=== PATIENT | female | born 1945 | race Caucasian/White ===

== ENCOUNTER 2019-06-11 09:05 | Outpatient (CLI) | payer MEDICARE, SELFPAY ==
--- NOTE | 2019-06-11 09:00 | CT_ITS ---
WS: [id number] CT CHEST HIGH-RESOLUTION TECHNIQUE: Noncontrast CT of the chest with coronal and sagittal reformatted images. High-resolution reformatted images with inspiration and expiration. Prone images. CLINICAL INFORMATION: shortness of breath COMPARISON: 7 20,011 DLP: 263.[address] scans at [facility] use at least one of these dose optimization techniques: automat ed exposure control; mA and/or kV adjustment per patient size (includes targeted exams where dose is matched to clinical indication); or iterative reconstruction. FINDINGS: Advanced chronic centrilobular and paraseptal emphysematous changes worse in the lung apices. Pleural base slightly spiculated nodule in the right upper lobe laterally measuring 9.8 mm. This can be furt her with PET/CT. This is not amenable to CT-guided biopsy. Additional plaque-like pleural nodules in the inferior right upper lobe along the fissure measuring 9 mm. Additional similar-appearing plaque-l pancho noncalcified pleural nodule right lower lobe measuring 12 mm. Pleural-based nodules are new since 2010. No other evidence of interstitial lung disease. No acute pulmonary infiltrates.Mild air-trapping in t he right middle lobe on the expiratory images. Vascular calcification including coronary. No mediastinal or hilar lymphadenopathy. Coronary calcific ation. No axillary lymphadenopathy. A few tiny low-attenuation nodules in the thyroid. Adrenal glands are normal. Partially visualized right renal cyst measuring 4.[address]/CT chest wo con [id number] IMPRESSION: 1. Moderate centrilobular and paraseptal emphysema. 2. Several noncalcified pleural-based nodules the most suspicious in the right upper lobe laterally measuring 10 mm with slight spiculation. Findings are mason picious for neoplasm and recommend further evaluation PET/CT. This is not amen able to CT-guided biopsy. 3. Additional en plaque subpleural noncalcified nodules in the inferior right upper lobe and right lower lobe measuring 9 to 12 mm. 4. No acute pulmonary infiltrates. 5. No mediastinal or hilar lymphadenopathy. 6. Mild air trapping in the right middle lobe.
--- NOTE | 2019-06-11 10:15 | USCV_ITS ---
Anneliese Garcia Age: 73 Gender: F : 1945 Exam Date: 06/11/2019 10:17 Ordering Phys: Brayan Basilio MD Technologist: Pari Linn Exam Location: [facility] – [place] Indication: PULMONARY HTN BP: 132 / 53 HR: 52 Rhythm: Sinus Technical Quality: Adequate MEASUREMENTS (Male / Female) Normal Values 2D ECHO LV Diastolic Diameter PLAX 4.2 cm 4.2 - 5.9 / 3.9 - 5.3 cm LV Systolic Diameter PLAX 3.3 cm LV Chamber Size 3.0 cm IVS Diastolic Thickness 1.1 cm 0.6 - 1.0 / 0.6 - 0.9 cm IVS Systolic Thickness 1.3 cm LVPW Diastolic Thickness 1.8 cm 0.6 - 1.0 / 0.6 - 0.9 cm LVPW Systolic Thickness 1.9 cm RV Chamber Size 2.1 cm LVOT Diameter 2.1 cm LV Ejection Fraction 2D Teich 43.9 % LV Ejection Fraction MOD 2C 76.1 % LV Ejection Fraction 2C AL 75.7 % LA Diameter 4.2 cm LA Width 2.9 cm LA Height 3.5 cm RA Width 2.2 cm RA Height 4.1 cm Aorta at Sinotubular Diameter 2.4 cm M-MODE LV Diastolic Diameter MM 4.0 cm 4.2 - 5.9 / 3.9 - 5.3 cm LV Systolic Diameter MM 2.0 cm LV Ejection Fraction MM Teich 80.8 % IVS Diastolic Thickness MM 0.9 cm 0.6 - 1.0 / 0.6 - 0.9 cm IVS Systolic Thickness MM 1.3 cm LVPW Diastolic Thickness MM 1.1 cm 0.6 - 1.0 / 0.6 - 0.9 cm LVPW Systolic Thickness MM 1.6 cm Aortic Annulus Diameter 3.0 cm LA Ao Ratio MM 1.4 MV E Point Septal Separation 0.3 cm DOPPLER AV Peak Velocity 146.0 cm/s LVOT Peak Velocity 125.0 cm/s AV Area Cont Eq vti 2.9 cm squared AV Area Cont Eq pk 2.9 cm squared MV Area PHT 2.8 cm squared Mitral E to A Ratio 0.8 MV E' Velocity 13.0 cm/s Mitral E to MV E' Ratio 8.4 Mitral E to LV E' Lateral Ratio 7.1 Mitral E to LV E' Septal Ratio 10.3 TR Peak Velocity 292.0 cm/s TR Peak Gradient 34.1 mmHg TR Mean Velocity 199.4 cm/s TR Mean Gradient 17.7 mmHg TR Velocity Time Integral 96.4 cm TV Peak E Velocity 64.0 cm/s Right Atrial Pressure 3.0 mmHg Pulmonary Artery Systolic Pressu 37.1 mmHg PV Peak Velocity 69.0 cm/s RV Acceleration Time 0.2 s RV Ejection Time 0.4 s RV AcT/ET 0.4 FINDINGS Left Ventricle Normal left ventricular size, systolic function and wall thickness, with no regional wall motion abnormalities. Grade I/IV diastolic dysfunction (abnormal relaxation filling pattern), normal to mildly elevated filling pressures. Left ventricular ejection fraction is estimated at 65%. Right Ventricle Normal right ventricular size and systolic function. Mild pulmonary hypertension, RVSP 37.1 mmHg. Right Atrium The right atrium is normal in size. Left Atrium Mildly increased left atrial size. Mitral Valve Structurally normal mitral valve. Mild-moderate mitral valve regurgitation. Aortic Valve Structurally normal aortic valve without significant sclerosis or stenosis. There is no aortic regurgitation. Tricuspid Valve Structurally normal tricuspid valve. Mild tricuspid valve regurgitation. Pulmonic Valve Pulmonic valve not well visualized. Trace pulmonary valve regurgitation. Pericardium Normal pericardium without effusion. Aorta Normal ascending aorta dimension. CONCLUSIONS Normal left ventricular size, systolic function and wall thickness, with no regional wall motion abnormalities. Grade I/IV diastolic dysfunction (abnormal relaxation filling pattern), normal to mildly elevated filling pressures. Left ventricular ejection fraction is estimated at 65%. Normal right ventricular size and systolic function. Mild pulmonary hypertension, RVSP 37.1 mmHg. Mildly increased left atrial size. Structurally normal mitral valve. Mild-moderate mitral valve regurgitation. There are no prior echocardiogram studies to compare. Dr. Khanh Lebron MD (Electronically Signed) Final Date: 11 June 2019 17:10 S
== END 2019-06-11 09:06 | disposition home or self-care (01) ==
LOC: RAD 09:08
PROVIDERS: Family Provider Family Medicine; PCP Family Medicine; Visit Provider Internal Medicine Critical Care Medicine
DX: I27.20 Pulmonary hypertension, unspecified (principal); I34.0 Nonrheumatic mitral (valve) insufficiency
CPT/HCPCS: 71250; 93306

== ENCOUNTER 2019-07-11 06:01 | Day surgery (SDC) | payer MEDICARE, SELFPAY ==
[2019-07-10 10:42] VITALS: BMI 23.6
[2019-07-11] VITALS (9 sets, daily range): BP systolic 99–149; BP diastolic 42–84; PULSE 56–85; RESP 14–20; TEMP 36.1–36.7; O2SAT 93–100
[2019-07-11] MEDS: sodium chloride 0.9% 1,000 ML 30 ML IV (06:45)
--- NOTE | 2019-07-11 06:50 | ANES.PREANE2 ---
Pre-Anesthetic Assessment Pre-Anesthetic Assessment: Height/Weight: Height 1.65 m Weight 64.41 kg Temp Pulse Resp BP Pulse Ox 97.1 F L 56 L 18 126/70 97 07/11/19 06:21 07/11/19 06:21 07/11/19 06:21 07/11/19 06:21 07/11/19 06:21 Preop Diagnosis: Lung cancer Proposed Procedure: Operation Date: 07/11/19 07:00 Proposed Procedures p Ebus(Not Applicable) - Brayan Basilio MD Familial anesthetic complications: None Was Beta Giana taken within 24 hours: Yes Last intake: Intake Last Liquid Date 07/11/19 Last Liquid Time 23:00 Last Solid Date 07/11/19 Last Solid Time 19:00 Social: Social History: Tobacco and No alcohol Packs per day: 0.5 - 1 pdd Exam: Additional Exam Findings (including area of procedure): diminshed lung soounds Airway: Cervical ROM: WNL MP: 1 Dentition: Chipped Additional comments: missing Pulmonary: Pulmonary: Cough and SOB Comments: lung mass R CV/HEM: CV/HEM: HTN and PVD Comments: PAD : : None reported Hepatic: Hepatic: None reported GI: GI: None reported Metabolic: Metabolic: None reported Musc/skel: Musc/skel: None reported Neuropsych: Neuropsych: None reported Anesthetic Plan: ASA status: 3 Anesthesia: General Risk of > 500 ml blood loss (7ml/kg in children): No PFSH Anesthesia PFSH: Social History Smoking and tobacco status: current every day smoker cigarettes Years cigarettes smoked: 45 Alcohol intake: current Alcohol intake frequency: holidays/special occasions only Current occupational status: retired History of recent travel: No Current gender identity: Female Data Anesthesia Cardiac Studies: No Data to Display
--- NOTE | 2019-07-11 06:58 | W.PM.OPSUD ---
Surgery/Procedure H&P Update DATE OF PROCEDURE: July 11, 2019 DATE H&P PERFORMED: 07/01/19 H&P UPDATE INFORMATION: I have reviewed H&P completed within last 30 days PREOP DIAGNOSIS: Lung cancer PLANNED PROCEDURE: Bronchoscopy inspection of the airway, possible endobronchial biopsies, endobronchial ultrasound-guided transbronchial needle aspiration of lymph nodes Operation Date: 07/11/19 07:00 Proposed Procedures p Ebus(Not Applicable) - Brayan Basilio MD Related Problem List Diagnoses (1) Lung cancer: The patient has right upper lobe pulmonary nodule with right mediastinal lymphadenopathy and hypermetabolic activity on PET scan. This is most likely consistent with primary lung malignancy. The plan is for to undergo the bronchoscopic evaluation and endobronchial ultrasound-guided transbronchial needle aspiration of hilar lymph nodes.
[2019-07-11] MEDS: lidocaine 1% INJ 20 mL XX (07:19)
--- NOTE | 2019-07-11 08:13 | SUR.OPER ---
balloon removed intact.
--- NOTE | 2019-07-11 08:16 | PM.OP ---
Operative Report Date of procedure: July 11, 2019 Pre-op Diagnosis: Lung cancer Post-op diagnosis: same Brief History: 3-year-old lady coming in for bronchoscopy. She recently had a PET scan done which was positive for right upper lobe pulmonary nodule and right hilar hypermetabolic lymph node. Procedure: Name of the procedure: Bronchoscopy with inspection of the airway, endobronchial ultrasound-guided transbronchial needle aspiration of lymph nodes and control of bleeding. Indication: Right upper lobe pulmonary nodule with right hilar lymphadenopathy and PET reactivity Anesthesia: General anesthesia. Local anesthesia: The carlene in the right and left mainstem bronchi were anesthetized with 1% lidocaine, 3 mL. Description of the procedure: The procedure was explained to the patient and the consent was obtained. The patient was brought to the OR. The patient underwent endotracheal intubation for general anesthesia. Following induction of general anesthesia, the bronchoscope was advanced through the ET tube. The lower trachea appeared to be normal, no endotracheal lesion was seen. The carlene was sharp. The carlene, the right and left mainstem bronchi are anesthetized with 1% lidocaine. In a systematic manner bilateral bronchial tree was then examined. The bronchoscope was advanced into the left mainstem bronchus. There was mild amount of mucus. The left upper lobe, lingula and left lower lobe bronchi were examined up to at least the third subsegmental level and no abnormalities were identified. There is no endobronchial lesion, active bleeding or mucous plug. The bronchoscope was then introduced into the right mainstem bronchus. The right upper lobe, right middle lobe and right lower lobe bronchi were examined up to at least the third subsegmental level and no abnormalities were identified. There was mild mucus. The endobronchial ultrasound was introduced through the ET tube. Right hilar lymphadenopathy with a right hilar mass was identified. Transbronchial needle aspiration was performed from 4R, 7, 10 R lymph node stations and right hilar mass. Samples: 1. The transbronchial needle aspiration of the aforementioned lymph node groups and right hilar mass were sent for cytology. Complications: There was no immediate complications. No significant bleeding postprocedure. Duration: 50 minutes.
--- NOTE | 2019-07-11 08:29 | SUR.PHASEI ---
7333 PATIENT TO PACU AT THIS TIME RR EVEN AND UNLABORED. PT NOTED TO BE RESTING WITH EYES CLOSED, NO DISTRESS.
--- NOTE | 2019-07-11 08:56 | SUR.PHASEI ---
0821 PATIENT TO PACU AT THIS TIME. NO DISTRESS. RR EVEN AND UNLABORED. DENIES PAIN. SLIGHT COUGH NOTED, INTERMITENTLY.
== END 2019-07-11 09:26 | disposition home or self-care (01) ==
PROVIDERS: Family Provider Family Medicine; PCP Family Medicine; Visit Provider Internal Medicine Critical Care Medicine
PROC: BB4BZZZ Ultrasonography of Pleura (ICD-10-PCS; CPT 31653; principal; 2019-07-11 07:00)
DX: C34.90 Malignant neoplasm of unspecified part of unspecified bronchus or lung (principal); I10 Essential (primary) hypertension; F17.210 Nicotine dependence, cigarettes, uncomplicated; Z79.82 Long term (current) use of aspirin; E78.5 Hyperlipidemia, unspecified; M81.0 Age-related osteoporosis without current pathological fracture; J43.9 Emphysema, unspecified
CPT/HCPCS: 31653; 12345; 88112; 88305; J1100; J2001; J2405; J2704; J3010; J3490; J7030

== ENCOUNTER 2019-07-29 12:56 | Outpatient (CLI) | payer MEDICARE, SELFPAY ==
--- NOTE | 2019-07-30 08:35 | ONC CON_ITS ---
Dr. Arango New Patient Note Patient: Anneliese Garcia Unit #: [id number]: 1945 Dicatated By: Cedric Arango M.D.Date of Visit: Jul 29, 2019 Onc MED New Patient/Consult Referring Physician: Dr. JJ BASILIO M.D. Chief Complaint: Lung cancer. History of Present Illness: This is a 73 year-old woman with small cell lung cancer, TNM stage IIIA (T4, N1, M0) by clinical evaluation. 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 She completed radiation in January 2003. She had only brief adjuvant hormonal therapy, stopped at 6 months due to side effects. She has had no evidence of recurrence. She had presented to Dr. Brown with shortness of breath. Her pulmonary function studies in March 2019 showed normal spirometry with severely reduced diffusion capacity. She was referred to Dr. Basilio. Chest CT on on 06/11/2019 showed moderate centrilobular and paraseptal emphysema. There were several noncalcified pleural-based nodules, the most significant in the right upper lobe measuring 10 mm. The findings were suspicious for neoplasm. There was no mediastinal or hilar adenopathy noted. Further evaluation with PET/CT on 06/28/2019 showed a 1.2 cm subpleural nodule in the right upper lobe with SUV 9.8, consistent with a primary lung carcinoma. A 2 cm right upper lobe hilar node had SUV 10.9, consistent with local metastatic disease. An FDG positive pleural-based plaque in the lateral right middle lobe had SUV 8.2, consistent with metastatic disease. On 07/11/2019 she underwent bronchoscopy with EBUS and FNA biopsy of the right hilar lymph node. There was no endobronchial lesion identified and the bronchial washings were nondiagnostic. The FNA biopsy showed numerous cohesive groups of malignant cells with high N/C ratios and neuroendocrine type chromatin, ultimately confirmed to be consistent with small cell carcinoma. She is seen now for further management of the lung cancer. She says she generally feels pretty good, though she is tired sometimes. Her ECOG score is 1. Her appetite has been fine. Her weight is stable. She has no fever. She occasionally has periods of feeling hot and sweaty. She still complains of having shortness of breath with activity. She has cough productive of thick, yellow mucus. She sometimes has choking. She was having some pleurisy-like pain in the lower anterior right chest wall, but that has resolved. Lately she has been having more indigestion. She has no other GI complaints. She has some urgency with urination. She has some generalized aching, most significantly in the knees. Lately she has had a lot of headaches. She tends to get lightheaded when she stands up from a bent-over position. She has no focal neurologic symptoms. Past Medical History: She has a history of ER/CA positivie invasive ductal carcinoma of the left breast treated with lumpectomy/radiation in 2002. Her other medical history includes degenerative disease of the spine with chronic back pain, hyperlipidemia, hypertension, osteoporosis, and peripheral artery disease. She has a history of hepatitis. Past Surgical History: She underwent bronchoscopy with EBUS and FNA biopsy of right hilar lymph node on 07/11/2019. Her other surgical/procedural history includes arthroscopic right knee surgery, cholecystectomy, closed reduction and pinning of left distal radius fracture, hysterectomy/bilateral salpingectomy-oophorectomy, iliiac artery stent placement, and left breast lumpectomy/axillary node sampling in 2002. Medications: amLODIPine Besylate 1 Tablet (of 10 mg) Oral daily, Aspirin 1 Tablet (of 325 mg) Oral daily, Chantix 1 Tablet (of 1 mg) Oral b.i.d., Sertraline HCl 1 Tablet (of 100 mg) Oral daily, Simvastatin 1 Tablet (of 10 mg) Oral daily, Stiolto Respimat Aerosol, solution Inhalation, Toprol XL 2 Tablet (of 50 mg) Tablet SR 24 HR Oral daily, traMADol HCl 2 Tablet (of 50 mg) Oral daily Allergies: DULoxetine HCl and FLUoxetine HCl. Social History: Ms. Garcia is and she is an unknown. She is a daily smoker who has smoked 0.5 packs/day for 45 years. She drinks occasionally. She has a history of smoking 1/2 pack of cigarettes daily for50 years. She has cut down to 1 or 2 cigarettes per day. Family History: Ms. Garcia's mother at age 78: alzheimers, and sepsis; Alzheimer's. Ms. Garcia's father at age 80: nonhodgkins lymphoma; Non- Hodgkins lymphoma. Ms. Garcia has 1 brother who is : lung infection. She has 1 sister who is : alzheimers, and lung disease, and diabetes. Father of lymphoma at age 80. Mother at age 78 with sepsis complicating Alzheimer's dementia. A brother at age 76 with aspiration pneumonia. A sister at age 82 with dementia, diabetes, and lung disease. Review Of Symptoms: Constitutional - She feels good overall, more fatigued lately. She is able to do normal house and outside work. Appetite is good and weight is stable. No fever or chills. She has occasional hot flashes and night sweats. ECOG score is 1, ENMT - She has some sinus drainage with occasional congestion. No mouth sores. No sore throat. difficulty swallowing, Hematologic/Lymphatic - She bruises easily, Respiratory - She has some shortness of breath with exertion. She has a slight productive cough that produces yellow sputum. She has had some right sided pleuritic pain or hemoptysis, Cardiovascular - No angina pain. No palpitations, Gastrointestinal - No nausea or vomiting. She has some heartburn. No diarrhea or constipation. No blood in the stool or black stools, Genitourinary (F) - No dysuria or hematuria. She has urinary frequency and urgency or incontinence, Musculoskeletal - She has bilateral knee pain, which is chronic,, Integumentary - No skin complications, Neurologic - No headache. She reports dizziness and feels like she is going to pass out at times. No numbness/paresthesias or other focal neurologic symptoms, Psychiatric - She has some anxiety and depression which is well controlled with sertaline. No insomnia. Vital Signs: Performed on Jul 29, 2019 13:53: 0, 24.23, 1.73 sq.m, 65.00 in, 96 %, 56 /min (LOW), 18 /min, 144/78 mm(hg) (HIGH), 97.4 F (LOW), and 145.6 lbs (HIGH). Physical Examination: Constitutional - She appears to be in good general health, Eyes - Sclerae nonicteric. Conjunctivae clear, ENMT - No lesions noted in the oral cavity, Neck - No mass or thyromegaly, Hematologic/Lymphatic - No cervical, clavicular, or axillary adenopathy, Respiratory - Lungs are clear with some decrease in air movement bilaterally, Cardiovascular - Heart rhythm is regular. There is no murmur, gallop, or rub noted, Abdomen - Soft and non-tender. Liver and spleen are not enlarged. There is no abdominal mass or ascites noted and there is no inguinal adenopathy, Back/Spine - No spine or CVA tenderness noted, Extremities - No edema. Pedal pulses are palpable bilaterally, Integumentary - No rashes. No suspicious skin lesions noted, Neurologic - No focal neurologic deficits noted. Impression: 1. Patient with small cell lung cancer of the right lung, TNM stage IIIA (T4, N1, M0) by clinical evaluation. 2. She underwent bronchoscopy with EBUS and biopsy of right hilar lymph node on 07/11/2019. 3. 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 There has been no evidence of recurrence. Her other medical illnesses include: 4. COPD. 5. Hypertension. 6. Hyperlipidemia. 7. Peripheral arterial disease. 8. Degenerative arthritis/degenerative disease of the spine. 9. Osteoporosis. 10. History of hepatitis. Plan: The findings on the imaging studies and the pathology results were reviewed with the patient and her . We discussed the fact that her disease is inoperable, based not only on the fact that is small cell carcinoma but also the fact that there is multifocal involvement in the lung and hilar node involvement. The disease, though, is potentially sensitive both chemotherapy and radiation. The recommended treatment will be concurrent radiation and chemotherapy, assuming her disease can be encompassed and safely treated within one radiation field. Her previous radiation for breast cancer and her underlying COPD may be complicating factors, and I will have to review this with the radiation oncologist. In the meantime, she will need to undergo placement of Port-A-Cath venous access device for the chemotherapy, and I will arrange that with Dr. France. Signed By: Cedric Arango M.D. <<Signature on File>>
== END 2019-07-29 12:57 | disposition home or self-care (01) ==
LOC: ONCMED 12:58
PROVIDERS: Family Provider Family Medicine; PCP Family Medicine; Referring Provider Internal Medicine Critical Care Medicine; Visit Provider Internal Medicine Medical Oncology
DX: C34.11 Malignant neoplasm of upper lobe, right bronchus or lung (principal); C77.1 Secondary and unspecified malignant neoplasm of intrathoracic lymph nodes; Z85.3 Personal history of malignant neoplasm of breast; G89.29 Other chronic pain; M19.90 Unspecified osteoarthritis, unspecified site; E78.5 Hyperlipidemia, unspecified; I10 Essential (primary) hypertension; M81.0 Age-related osteoporosis without current pathological fracture; I73.9 Peripheral vascular disease, unspecified; F17.210 Nicotine dependence, cigarettes, uncomplicated; J44.9 Chronic obstructive pulmonary disease, unspecified; Z79.899 Other long term (current) drug therapy; Z92.23 Personal history of estrogen therapy; Z92.3 Personal history of irradiation
CPT/HCPCS: 99205

== ENCOUNTER 2019-07-31 09:20 | Day surgery (SDC) | payer MEDICARE, SELFPAY ==
[2019-07-30 14:28] VITALS: BMI 24.1
--- NOTE | 2019-07-31 | SCC_ITS ---
Procedure Done: Port-A-Cath placement into the left subclavian vein with intraoperative fluoroscopy interpretation. 3.4 seconds of fluoroscopic guidance, for a cumulative dose of 0.30 mGy, was provided to Dr. France by the radiology department. C-arm images of the chest were saved for the patient's permanent record. MARISA
--- NOTE | 2019-07-31 | SC_ITS ---
WS: [id number] C-arm fluoroscopy view of the left chest for Port-A-Cath placement, 07/31/2019 Clinical Data: PORTACATH Comparison: None. Findings: The left Port-A-Cath has been inserted. The distal tip ends in the superior vena cava. No pneumothora x is seen. SC/C-arm FL for CVA [id number] Impression: Satisfactory insertion of left Port-A-Cath.
[2019-07-31 09:42] VITALS: BP 123/63; PULSE 62; RESP 18; TEMP 36.3; O2SAT 94
[2019-07-31] MEDS: sodium chloride 0.9% 1,000 ML 30 ML IV (09:46)
--- NOTE | 2019-07-31 10:29 | PM.OP ---
Operative Report Date of procedure: July 31, 2019 Pre-op Diagnosis: Small cell lung cancer of the right lung. Post-op diagnosis: same Procedure Done: Port-A-Cath placement into the left subclavian vein with intraoperative fluoroscopy interpretation. Pathology: none sent Surgeon: Jeremy France Anesthesia: MAC Estimated blood loss (mL): 5 Complications: None. Condition: stable Disposition: same day Procedure: The patient was brought to the Operating Room and was placed in a supine position on the operating room table. A monitored anesthetic was induced. The shoulders were extended by means of a posterior shoulder roll. The anterior surface of the chest and neck were prepped and draped in a sterile fashion. 1% lidocaine was used to anesthetize a small area underneath the left clavicle. The subclavian vein was accessed with a needle and syringe as evidenced by the return of dark nonpulsatile blood. The J-wire was passed down the needle and the needle was removed. The C-arm was positioned and showed the wire extending down the vena cava. A site just inferiorly on the chest wall was anesthetized using a combination of 1% lidocaine and 0.5% bupivacaine with 1:200,000 parts of epinephrine. A transverse incision was made and an inferior pocket was created in the subcutaneous layer using cautery in preparation for port placement. The Port-A-Cath tubing was passed from the incision through the subcutaneous layer to the exit point of the J-wire. The tubing was attached to the port and was cut to an appropriate length. The introducer and sheath were passed over the J-wire, and the introducer and J-wire were removed. The Port-A-Cath tubing was passed down the sheath, which was torn away. The C-arm was positioned and showed good placement of the Port-A-Cath tubing tip in the superior vena cava. The port aspirated easily and flushed well with hep flush solution. The port was sewn in place with some interrupted sutures of 3-0 PDS. The transverse incision was closed at the dermis using a single inverted suture of 3-0 Vicryl and the skin was approximated using a running subcuticular suture of 4-0 Vicryl. The small incision under the clavicle at the previous insertion site of the J wire was closed using a single inverted suture of 4-0 Vicryl. Benzoin and Steri-Strips were placed over the incisions and a sterile bandage followed. The patient was taken to the recovery area in stable condition postoperatively. INTRAOPERATIVE FLUOROSCOPY FINDINGS: Intraoperative fluoroscopic images of a Port-A-Cath placement were reviewed. An initial image reveals a J-wire entering the left subclavian vein and extending down the vena cava. Subsequent images reveal a Port-A-Cath on that side of the chest with its tubing tip in good location in the superior vena cava. No obvious pneumothorax is identified.
--- NOTE | 2019-07-31 10:40 | ANES.PREANE2 ---
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 Proposed Procedure: Operation Date: 07/31/19 10:45 Proposed Procedures p Portacath Placement(Not Applicable) - Jeremy France MD Was Beta Giana taken within 24 hours: Yes Last intake: Intake Last Liquid Date 07/31/19 Last Liquid Time 22:00 Last Solid Date 07/31/19 Last Solid Time 22:00 Social: Social History: Tobacco and No alcohol Exam: Pre-Anes Outpt Exam: alert, oriented x 3, clear to auscultation bilaterally and regular rate & rhythm Airway: Submandibular: WNL Cervical ROM: WNL MP: 2 Dentition: Full Pulmonary: Pulmonary: COPD Comments: Small cell lung CA CV/HEM: CV/HEM: HTN Comments: PVDz : : None reported Hepatic: Hepatic: None reported GI: GI: None reported Metabolic: Metabolic: None reported Musc/skel: Comments: Chronic pain Neuropsych: Neuropsych: None reported Anesthetic Plan: ASA status: 3 Anesthesia: MAC Risk of > 500 ml blood loss (7ml/kg in children): No Meds/Allergies Current Medications: Current Medications Generic Name Dose Route Start Last Admin Trade Name Freq PRN Reason Stop Dose Admin Sodium Chloride 1,000 mls @ 30 ml s/hr 07/31/19 09:45 07/31/19 09:46 Sodium Chloride 0.9% IV 08/01/19 09:44 30 mls/hr .Q24H CHEN Administration PFSH Anesthesia PFSH: Social History Smoking and tobacco status: current every day smoker cigarettes Years cigarettes smoked: 45 Alcohol intake: current Alcohol intake frequency: holidays/special occasions only Current occupational status: retired History of recent travel: No Current gender identity: Female Data Anesthesia Cardiac Studies: No Data to Display
[2019-07-31 10:46] VITALS: BP 112/68; PULSE 61; RESP 16; TEMP 36.1; O2SAT 93
[2019-07-31 10:58] VITALS: BP 119/67; PULSE 58; RESP 18; O2SAT 92
--- NOTE | 2019-08-05 08:28 | W.PM.OPSUD ---
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 PLANNED PROCEDURE: Operation Date: 07/31/19 10:45 Proposed Procedures p Portacath Placement(Not Applicable) - Jeremy France MD
== END 2019-07-31 11:13 | disposition home or self-care (01) ==
PROVIDERS: Family Provider Family Medicine; PCP Family Medicine; Visit Provider Surgery
PROC: (CPT 36561; principal; 2019-07-31 10:45)
DX: C34.91 Malignant neoplasm of unspecified part of right bronchus or lung (principal); I10 Essential (primary) hypertension; F17.210 Nicotine dependence, cigarettes, uncomplicated; J43.9 Emphysema, unspecified; Z92.3 Personal history of irradiation; M81.0 Age-related osteoporosis without current pathological fracture; Z79.82 Long term (current) use of aspirin; Z82.49 Family history of ischemic heart disease and other diseases of the circulatory system
CPT/HCPCS: 36561; 12345; 77001; C1788; J0690; J2001; J2250; J2704; J3490; J7030

== ENCOUNTER 2019-08-18 16:05 | Outpatient (RCR) | payer MEDICARE, SELFPAY ==
--- NOTE | 2019-08-04 17:53 | N.ONRAD NP_ITS ---
Radiation Oncology New Patient Visit Patient: Anneliese Garcia MR#: [id number] : 1945> Age: 73> Sex: Female> Dictated by: Dr. Ken Campo Date of Service: 08/04/2019 Referring Physician(s) : Dr. Cedric Arango Diagnosis: C34.11 - malignant neoplasm of upper lobe, right bronchus or lung, Diagnosed 07/29/2019 (active), stage iiia, t4, n1, m0. Radiotherapy to date: Summary > left breast: 12-24-02 through 01-28-03 4500 cGy in 25 fractions; left breast boost: 01/29/2003 through 02/13/2003 2160 cGy in 12 fractions. Total dose 6660 cGy in 37 fractions to the boosted volume Chief Complaint / History of Present Illness: Mrs. Garcia is a 73-year-old lady with history of invasive ductal carcinoma of the left breast, stage IA, treated in 2002 with lumpectomy, whole breast radiation, and approximately 6 months of hormonal therapy. Hormonal therapy was discontinued because of poor tolerance. She has done well from the breast cancer, but presented to several weeks ago with shortness of breath. Her spirometry showed normal volumes but severely reduced diffusion capacity. She was referred to Dr. Basilio and a CT of the chest was performed 06/11/2019. This study revealed pleural-based nodules that were suspicious for malignancy. A PET scan was performed 06/28/2019 and showed a suspicious 1.2 cm subpleural nodule in the right upper lobe, a 2 cm right hilar node with uptake suspicious for malignancy, and a third pleural-based lesion lateral to the right middle lobe. A bronchoscopy was performed 07/11/2019. Biopsy from the suspicious right hilar node revealed small cell carcinoma. A MR of the head is scheduled for later this week. If the MR is negative for metastatic disease, the stage of the cancer will be T4 N1 M0. Mrs. Menon has seen Dr. Arango. If allowed by her previous breast radiation and the volume that will be required to treat these 3 areas of gross disease, the preferred treatment would be concomitant chemotherapy and radiation. She is referred for discussion of these issues. Current Medications: AmLODIPine Besylate, aspirin, chantix, sertraline HCl, simvastatin, stiolto Respimat, toprol XL, traMADol HCl. Allergies: DULoxetine HCl and FLUoxetine HCl. 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 No history of collagen vascular disease. No previous radiation therapy. Surgical History: Arthroscopic right knee surgery, bronchoscopy with EBUS and FNA biopsy of right hilar lymph node on 07/11/2019, cholecystectomy, closed reduction and pinning of left distal radius fracture, colonoscopy, hysterectomy/bilateral salpingectomy-oophorectomy, iliac artery stent placement and left breast lumpectomy and axillary lymph node sampling in 2002. Family History: Father is at age 80 having experienced nonhodgkins lymphoma - Non- Hodgkins lymphoma. Mother is at age 78 having experienced alzheimers, and sepsis - Alzheimer's. Brother is at age 76 having experienced lung infection. Sister is at age 82 having experienced alzheimers, and lung disease, and diabetes. Father of lymphoma at age 80. Mother at age 78 with sepsis complicating Alzheimer's dementia. A brother at age 76 with aspiration pneumonia. A sister at age 82 with dementia, diabetes, and lung disease. Social History: Last screened on 08/04/2019 - Current every day smoker 0.5 packs/day for 45 years (22.5 pack years). Last screened on 08/04/2019 - Drinks occasionally. Current Complaints / Review of Systems: . [employer] symptoms include frequent headaches and orthostatic lightheadedness. No history of seizures or blackouts. Pulmonary symptoms include shortness of breath with walking up 1 flight of stairs. She also has cough and nonpurulent sputum production. Musculoskeletal symptoms include pain in the right rib cage area with activity or applied pressure. She has chronic low back pain that is unchanged in nature. She has no troublesome cardiovascular symptoms at this time. No troublesome gastrointestinal symptoms. Vital Signs: Performed on 08/04/2019 2:05 PM BMI - 24.129 kg/m2 (high), Height - 65.00 in, Weight - 145.0 lbs, Temperature - 97.3 f, Pulse - 56, Respiration - 18, O2 Sat - 97 %, Pain - 0, Fatigue - 0 and BP - 119/ 77 mm(hg). Physical Exam: Alert oriented no distress. No cervical, supraclavicular, or axillary lymphadenopathy. Lungs clear to percussion. On auscultation no rales rhonchi or wheezes. Heart rhythm regular. No murmur or gallop. The right breast is normal in appearance and has no masses or tenderness. The left breast has very minimal residual radiation changes. There is slight volume reduction from prior radiation. No masses or tenderness detected. Abdomen no distention. No organomegaly or mass or tenderness. Musculoskeletal no tenderness of the spine, pelvis, extremities. Both hips have free range of motion without pain. Both shoulders have a full range of motion without pain. There is mild tenderness to palpation of the right anterior lateral rib cage just beneath the lower border of the right breast. There is no palpable abnormality in this area. [employer] exam reveals no cranial nerve deficits. No focal motor weakness. Gait is normal. Performance Status: 1 - No physically strenuous activity, but ambulatory and able to carry out light or sedentary work (e.g. office work, light house work). (ECOG) Pathology: Primary, c34.11 - malignant neoplasm of upper lobe, right bronchus or lung, Diagnosed 07/29/2019 (active) stage iiia, t4, n1, m0. Lab: Pulmonary function studies performed 04/02/2019 reveal an FEV1 of 2.18, 103% of predicted. The DLCO uncorrected is 45% of normal and the DL/VA is 51% of normal. Repeat pulmonary functions are scheduled for 08/15/2019. Imaging: See HPI Impression: Mrs. Menon likely has limited stage small cell carcinoma of the lung. The results of her brain MRI are needed to confirm the final stage. Her case is complex because of her prior left breast radiation, her significantly restricted diffusing capacity, and the area over which the 3 PET positive lesions in the right hemithorax are distributed. By using IMRT, the volume of lung receiving high-dose radiation can be limited significantly, but there will be a significant volume of the right lung getting low-dose radiation. I will need to review her prior treatment volumes and estimate the lung volume that will require radiation for her right lung treatment. I discussed that with her and her . I discussed that in spite of taking great care, there is a risk of oxygen dependence that could be permanent. I discussed that using treatment volumes limited to gross disease, it is unlikely that she would suffer any injury to the esophagus or heartor other soft tissues but I did discuss that possibility. I discussed an approximately 6-week course of radiation and reviewed the acute side effects that are possible. I discussed the possibility of sequential treatment if the lung volume requiring treatment appears prohibitive. I discussed that the plans for treatment will be altered if she has evidence of metastases in the [employer]. Also discussed prophylactic cranial irradiation if she does not have metastatic disease to the brain and has a good response to her primary therapy to the lung. I discussed the risk of cognitive decline with PCI, especially in patients over 70 years of age. We will await the results of her brain MR. During that time, I will review her prior treatment volumes. Plan: Signed by: 08/04/2019 5:50:33 PM <<Signature on File>> Time spent with patient: CPT Code: CPT Code:
--- NOTE | 2019-08-06 11:19 | MR_ITS ---
WS: [id number] MRI HEAD WITH CONTRAST TECHNIQUE: Sagittal T1, T2 axial, T2 axial FLAIR, axial susceptibility weighted imaging, axial diffus ion weighted images, and coronal T2 images were obtained. Pre and post-T1 axial and post T1 coronal i mages. ADC and FSPGR images. CLINICAL INFORMATION: SMALL CELL LUNG CANCER COMPARISON: None. FINDINGS: No evidence of restricted diffusion to suggest acute ischemia. Ventricular system and basal cisterns are patent. Moderate supra and infratentorial white matter changes consistent with small vessel disea se in a patient this age. Mild parenchymal volume loss. Small vessel changes in the lei. Normal post erior fossa. Normal vascular flow voids at the skull base. No extra-axial fluid collections. Mild mucosal thickening in the sphenoid sinuses. Mastoid air cells are well aerated. Mild to moderate atrophy involving the temporal lobes and hippocampal formations. Normal optic chiasm and pituitary i nfundibulum. No evidence of enhancing intracranial metastatic disease. Normal dural venous sinuses. MR/MR head wo/w con [id number] IMPRESSION: 1. No evidence of enhancing intracranial metastatic disease. 2. Moderate small vessel changes with mild parenchymal volume loss. 3. Small vessel changes in the lei. 4. Sphenoid sinusitis. 5. No hemosiderin on the susceptibility weighted images.
[2019-08-06 11:55] LABS: Basophils # 0.1 10^3/uL (0.0-0.1); Basophils % 0.9 %; Eosinophils # 0.4 10^3/uL (0.0-0.8); Eosinophils % 3.6 %; Hematocrit 47.2 % (37.0-47.0); Hemoglobin 14.9 g/dL (11.5-15.3); Lymphocytes # 2.2 10^3/uL (0.8-4.8); Lymphocytes % 22.3 %; Mean Corpuscular HGB Conc 31.6 g/dL (30.0-36.0); Mean Corpuscular Hemoglobin 30.3 pg (28.0-34.0); Mean Corpuscular Volume 95.9 fL (81-99); Mean Platelet Volume 9.1 fL (7.4-10.4); Monocytes # 0.6 10^3/uL (0.2-0.9); Monocytes % 6.3 %; Neutrophils # 6.5 10^3/uL (1.8-7.7); Neutrophils % 66.5 %; Nucleated Red Blood Cells % 0 %; Platelet Count 262 10^3/cmm (130-400); Red Blood Count 4.92 10^6/uL (4.1-5.3); Red Cell Distribution Width 12.9 % (12.1-15.1); White Blood Count 9.7 10^3/uL (4.0-10.0)
[2019-08-06 12:14] LABS: Alanine Aminotransferase 13 U/L (0-33); Albumin Level 3.8 g/dL (3.5-5.2); Alkaline Phosphatase 84 IU/L (35-105); Anion Gap 13.4 (5-19); Aspartate Amino Transferase 17 U/L (0-32); Blood Urea Nitrogen 16 mg/dL (8-23); Calcium 9.8 mg/dL (8.5-10.5); Carbon Dioxide 28 mmol/L (22-29); Chloride 100 mmol/L (98-107); Globulin 3.5 g/dL (1.3-4.6); Glucose 125 mg/dL (65-115); Osmolality Calculated 282 mOsm/kg (285-295); Potassium 4.4 mmol/L (3.5-5.1); Sodium 137 mmol/L (136-145); Total Bilirubin 0.4 mg/dL (0.15-1.2); Total Protein 7.3 g/dL (6.6-8.7)
--- NOTE | 2019-08-11 | CT_ITS ---
Radiation Therapy Planning CT images; total exam DLP: 1742.45 mGy-cm MTDD
[2019-08-11] MEDS: sodium chloride 0.9% 250 ML 75 ML IV (09:05)
[2019-08-11] MEDS: FUROsemide 10 mg/mL SDV 2mL 20 MG IV (13:37)
[2019-08-11] MEDS: sodium chlor 0.9% + KCl 20 mEq 20 MEQ/1,000 ML BAG 1000 MEQ IV (13:39)
[2019-08-12] MEDS: prochlorperazine 10 mg Tablet PO (13:25)
[2019-08-13] MEDS: prochlorperazine 10 mg Tablet PO (13:35)
[2019-08-18 18:28] LABS: Basophils # 0.1 10^3/uL (0.0-0.1); Basophils % 0.7 %; Eosinophils # 0.2 10^3/uL (0.0-0.8); Eosinophils % 1.9 %; Hematocrit 42.5 % (37.0-47.0); Hemoglobin 13.8 g/dL (11.5-15.3); Lymphocytes # 3.1 10^3/uL (0.8-4.8); Lymphocytes % 35.5 %; Mean Corpuscular HGB Conc 32.5 g/dL (30.0-36.0); Mean Corpuscular Hemoglobin 29.8 pg (28.0-34.0); Mean Corpuscular Volume 91.8 fL (81-99); Mean Platelet Volume 9.8 fL (7.4-10.4); Monocytes # 0.1 10^3/uL (0.2-0.9); Monocytes % 1.1 %; Neutrophils # 5.2 10^3/uL (1.8-7.7); Neutrophils % 59.3 %; Nucleated Red Blood Cells % 0 %; Platelet Count 182 10^3/cmm (130-400); Red Blood Count 4.63 10^6/uL (4.1-5.3); Red Cell Distribution Width 12.3 % (12.1-15.1); White Blood Count 8.8 10^3/uL (4.0-10.0)
[2019-08-18 19:26] LABS: Slide Review Slide Review Perform
== END 2019-08-19 23:59 | disposition home or self-care (01) ==
LOC: ONCMED 16:05
PROVIDERS: Family Provider Family Medicine; PCP Family Medicine; Visit Provider Internal Medicine Medical Oncology
DX: Z51.11 Encounter for antineoplastic chemotherapy (principal); C34.11 Malignant neoplasm of upper lobe, right bronchus or lung; C77.1 Secondary and unspecified malignant neoplasm of intrathoracic lymph nodes; J32.3 Chronic sphenoidal sinusitis; F17.210 Nicotine dependence, cigarettes, uncomplicated; Z92.23 Personal history of estrogen therapy; Z85.3 Personal history of malignant neoplasm of breast; Z92.3 Personal history of irradiation
CPT/HCPCS: 36415; 70553; 77300; 77301; 77334; 77338; 80053; 85025; 96366; 96367; 96375; 96413; 96417; 99204; A9579; J1100; J1453; J1940; J2469; J3475; J3480; J3490; J7030; J7040; J7050; J9060; J9181; Q0164

== ENCOUNTER 2019-09-18 06:53 | Outpatient (RCR) | payer MEDICARE, SELFPAY ==
[2019-08-25 19:34] LABS: Eosinophils # 0.1 10^3/uL (0.0-0.8); Eosinophils % 3.5 %; Hematocrit 42.2 % (37.0-47.0); Hemoglobin 13.5 g/dL (11.5-15.3); Lymphocytes # 1.9 10^3/uL (0.8-4.8); Lymphocytes % 66.2 %; Mean Corpuscular Hemoglobin 30.1 pg (28.0-34.0); Mean Platelet Volume 10.1 fL (7.4-10.4); Monocytes # 0.4 10^3/uL (0.2-0.9); Monocytes % 14.6 %; Neutrophils % 14.7 %; Nucleated Red Blood Cells % 0 %; Platelet Count 174 10^3/cmm (130-400); Red Blood Count 4.49 10^6/uL (4.1-5.3); Red Cell Distribution Width 12.3 % (12.1-15.1); White Blood Count 2.9 10^3/uL (4.0-10.0)
[2019-08-25 20:53] LABS: Neutrophils # 0.4 10^3/uL (1.8-7.7)
[2019-08-28 14:57] LABS: Basophils % 0.7 %; Eosinophils # 0.1 10^3/uL (0.0-0.8); Eosinophils % 1.8 %; Hematocrit 40.9 % (37.0-47.0); Hemoglobin 13.2 g/dL (11.5-15.3); Lymphocytes # 2.4 10^3/uL (0.8-4.8); Lymphocytes % 53.8 %; Mean Corpuscular HGB Conc 32.3 g/dL (30.0-36.0); Mean Corpuscular Hemoglobin 30.6 pg (28.0-34.0); Mean Corpuscular Volume 94.7 fL (81-99); Monocytes # 0.8 10^3/uL (0.2-0.9); Monocytes % 18.4 %; Nucleated Red Blood Cells % 0 %; Platelet Count 393 10^3/cmm (130-400); Red Blood Count 4.32 10^6/uL (4.1-5.3); Red Cell Distribution Width 12.9 % (12.1-15.1); White Blood Count 4.5 10^3/uL (4.0-10.0)
[2019-08-28 15:13] LABS: Neutrophils # 0.8 10^3/uL (1.8-7.7)
[2019-08-28 15:31] LABS: Slide Review Slide Review Perform
[2019-08-28 15:38] LABS: Absolute Segmented Neutrophil 0.6 10/cmm (1.6-7.1); Band Neutrophils Absolute 0.3 10^3/cmm (0.0-1.2); Lymphocytes 60 %; Lymphocytes Absolute 2.9 10^3/cmm (1.2-3.4); Monocytes Absolute 0.4 10^3/cmm (0.1-0.6); Platelet Estimate Normal (Normal); Segmented Neutrophils 14 %; Total Cells Counted 100 (0-100)
[2019-09-01 10:30] LABS: Basophils # 0.1 10^3/uL (0.0-0.1); Basophils % 0.7 %; Eosinophils # 0.1 10^3/uL (0.0-0.8); Eosinophils % 0.6 %; Hematocrit 40.8 % (37.0-47.0); Hemoglobin 13.2 g/dL (11.5-15.3); Lymphocytes # 2.8 10^3/uL (0.8-4.8); Lymphocytes % 16.1 %; Mean Corpuscular HGB Conc 32.4 g/dL (30.0-36.0); Mean Corpuscular Hemoglobin 30.7 pg (28.0-34.0); Mean Corpuscular Volume 94.9 fL (81-99); Mean Platelet Volume 8.6 fL (7.4-10.4); Monocytes # 1.7 10^3/uL (0.2-0.9); Monocytes % 9.9 %; Neutrophils # 11.1 10^3/uL (1.8-7.7); Neutrophils % 62.9 %; Nucleated Red Blood Cells # 0.1 /100WBC; Nucleated Red Blood Cells % 0.3 %; Platelet Count 404 10^3/cmm (130-400); Red Cell Distribution Width 13.7 % (12.1-15.1); White Blood Count 17.6 10^3/uL (4.0-10.0)
[2019-09-01 11:18] LABS: Slide Review Slide Review Perform
[2019-09-01 13:17] LABS: Alanine Aminotransferase 11 U/L (0-33); Albumin Level 3.9 g/dL (3.5-5.2); Alkaline Phosphatase 106 IU/L (35-105); Anion Gap 15.2 (5-19); Aspartate Amino Transferase 17 U/L (0-32); Blood Urea Nitrogen 19 mg/dL (8-23); Calcium 9.2 mg/dL (8.5-10.5); Carbon Dioxide 24 mmol/L (22-29); Chloride 103 mmol/L (98-107); Globulin 2.8 g/dL (1.3-4.6); Glucose 113 mg/dL (65-115); Osmolality Calculated 283 mOsm/kg (285-295); Potassium 4.2 mmol/L (3.5-5.1); Sodium 138 mmol/L (136-145); Total Bilirubin 0.2 mg/dL (0.15-1.2); Total Protein 6.7 g/dL (6.6-8.7)
[2019-09-01] MEDS: FUROsemide 10 mg/mL SDV 2mL 20 MG IV (16:50)
[2019-09-01] MEDS: sodium chlor 0.9% + KCl 20 mEq 20 MEQ/1,000 ML BAG 1000 MEQ IV (16:52)
--- NOTE | 2019-09-01 17:37 | ONC FU_ITS ---
Dr. Arango Patient Follow-Up Note Patient: Anneliese Garcia Unit #: [id number]: 1945 Dicatated By: Cedric Arango M.D.Date of Visit:Sep 01, 2019 Onc Med Follow-up/Prog Note Chief Complaint: Lung cancer. History of Present Illness: This is a 73 year-old woman with small cell lung cancer, TNM stage IIIA (T4, N1, M0) by clinical evaluation. She has a history of having undergone lumpectomy/axillary lymph node sampling and radiation for grade I invasive ductal carcinoma of the left breast, stage IA (T1b, N0, M0), ER/AK positive and HER-2/franco negative. She completed radiation in January 2003. She had only brief adjuvant hormonal therapy, stopped at 6 months due to side effects. She has had no evidence of recurrence. She had presented to Dr. Brown with shortness of breath. Her pulmonary function studies in March 2019 showed normal spirometry with severely reduced diffusion capacity. She was referred to Dr. Basilio. Chest CT on on 06/11/2019 showed moderate centrilobular and paraseptal emphysema. There were several noncalcified pleural-based nodules, the most significant in the right upper lobe measuring 10 mm. The findings were suspicious for neoplasm. There was no mediastinal or hilar adenopathy noted. Further evaluation with PET/CT on 06/28/2019 showed a 1.2 cm subpleural nodule in the right upper lobe with SUV 9.8, consistent with a primary lung carcinoma. A 2 cm right upper lobe hilar node had SUV 10.9, consistent with local metastatic disease. An FDG positive pleural-based plaque in the lateral right middle lobe had SUV 8.2, consistent with metastatic disease. On 07/11/2019 she underwent bronchoscopy with EBUS and FNA biopsy of the right hilar lymph node. There was no endobronchial lesion identified and the bronchial washings were nondiagnostic. The FNA biopsy showed numerous cohesive groups of malignant cells with high N/C ratios and neuroendocrine type chromatin, ultimately confirmed to be consistent with small cell carcinoma. I had seen her initially on 07/29/2019. With 2 isolated lung lesions and right hilar node involvement, I was unsure if she was appropriate for concurrent chemoradiation. I opted to have her start chemotherapy with cisplatin/etoposide pending consultation with the radiation oncologist. Ultimately, it was recommended that she proceed with combined therapy beginning with cycle 2 of chemotherapy. Her staging brain MRI on 08/06/2019 showed no evidence of metastatic disease. Her other medical illnesses, in addition to the breast cancer, include COPD, hypertension, hyperlipidemia, peripheral arterial disease, degenerative disease of the spine, and osteoporosis. She has a history of hepatitis. She has a history of smoking 1/2 pack of cigarettes daily for 50 years. She has cut down to 2 or 3 cigarettes/day. INTERIM HISTORY: She began cycle 1 of cisplatin/etoposide chemotherapy on 08/11/2019. She tolerated it without acute toxicity. At day 15 she was severely neutropenic, ANC 400. She was not febrile, and she recovered following treatment with Neupogen. She is seen for a scheduled visit. She indicates that the chemotherapy kicked her butt . She was extremely fatigued for the first 3 days, but after that she did start to feel better, and she has been able to do light work. Her ECOG score is 1. Her appetite has been okay. She has had no fever or night sweats. She developed pretty severe bone pain with the Neupogen injections, but that has resolved. She had soreness in her tongue and in her throat, that also is better. She had a little bit of cough last week. She says her breathing seems worse. She has not been having chest pain. She had just mild nausea on 1 day. She has been having acid reflux. Her bowel movements are not as frequent. At times she has a little difficulty voiding. She has otherwise not had joint or bone pain. She has had just minor headache. She sometimes has a little lightheadedness. She had ringing in her ears for the first day or 2 after her treatment. She has had no other focal neurologic symptoms. Medications: amLODIPine Besylate 1 Tablet (of 10 mg) Oral daily, Aspirin 1 Tablet (of 325 mg) Oral daily, Chantix 1 Tablet (of 1 mg) Oral b.i.d., Sertraline HCl 1 Tablet (of 100 mg) Oral daily, Simvastatin 1 Tablet (of 10 mg) Oral daily, Stiolto Respimat Aerosol, solution Inhalation, Toprol XL 2 Tablet (of 50 mg) Tablet SR 24 HR Oral daily, traMADol HCl 2 Tablet (of 50 mg) Oral daily Allergies: DULoxetine HCl and FLUoxetine HCl. Review of Systems: Constitutional - Her energy level is low. She is able to do some light work. Her appetite is good and weight is stable. No fever, chills, hot flashes, or night sweats. ECOG score is 1, ENMT - No sinus congestion/drainage. She had some soreness to her mouth and throat. No difficulty swallowing. She had ringing in both ears following her first treatment, Hematologic/Lymphatic - No abnormal bruising or bleeding, Respiratory - She has some shortness of breath. No cough. No pleuritic pain or hemoptysis, Cardiovascular - No angina pain. No palpitations, Gastrointestinal - She had some nausea that was adequately managed with compazine. No vomiting. She has some heartburn poorly managed with Rolaids. No diarrhea or constipation. No blood in the stool or black stools, Genitourinary (F) - No dysuria or hematuria. No urinary frequency. No urgency or incontinence, Musculoskeletal - She started having pain to her lower back, upper neck, and in her legs following her Neupogen injections, Integumentary - No skin complications, Neurologic - She has mild headaches. No dizziness. No numbness/paresthesias or other focal neurologic symptoms, Psychiatric - She is having some mild anxiety and depression. She has insomnia. Vital Signs: Performed on Sep 01, 2019 11:55 Height - 65.00 in Weight - 147.4 lbs (HIGH) BSA - 1.74 sq.m BMI - 24.53 Temperature - 97.6 F (LOW) Pulse - 65 /min Respiration - 18 /min BP - 132/71 mm(hg) O2 Sat - 93 % (LOW) Pain - 0 Physical Examination: Constitutional - She looks pretty good generally, Eyes - Sclerae nonicteric. Conjunctivae clear, ENMT - No lesions noted in the oral cavity, Hematologic/Lymphatic - No cervical, clavicular, or axillary adenopathy, Respiratory - Lungs sound clear with some decrease in air movement bilaterally, Cardiovascular - Heart rhythm is regular. There is a II/ systolic murmur. There is no gallop or rub noted, Abdomen - Soft. Liver and spleen are not enlarged. There is no abdominal mass or ascites noted and there is no inguinal adenopathy, Extremities - No edema, Neurologic - No focal neurologic deficits noted. Lab/Imaging: Test performed on Sep 01, 2019 10:15 Sodium 138 mmol/L Potassium 4.2 mmol/L Chloride 103 mmol/L CO2 24 mmol/L Anion Gap 15.2 BUN 19 mg/dL Creatinine 1.1 mg/dL Cr Clearance (Est) 48.9100 mL/min Glucose 113 mg/dL Calcium 9.2 mg/dL Protein, Total 6.7 g/dL Albumin 3.9 g/dL Globulin 2.8 g/dL Bilirubin, Total 0.2 mg/dL ALT (SGPT) 11 U/L AST (SGOT) 17 U/L Alkaline Phosphatase 106 IU/L WBC 17.6 10 3/uL RBC 4.30 10 6/uL HGB 13.2 g/dL HCT 40.8 % MCV 94.9 fL MCH 30.7 pg MCHC 32.4 g/dL RDW 13.7 % Platelet Count 404 10 3/cmm MPV 8.6 fL Neutrophils 11.1 10 3/uL Lymphocytes 2.8 10 3/uL Monocytes 1.7 10 3/uL Eosinophils 0.1 10 3/uL Basophils 0.1 10 3/uL Neutrophil % 62.9 % Lymphocyte % 16.1 % Monocyte % 9.9 % Eosinophil % 0.6 % Basophils % 0.7 % CBC Slide Review Slide Review Perform SLIDE REVIEW AGREES WITH AUTOMATED RESULTS ST Impression: 1. Patient with small cell lung cancer of the right lung, TNM stage IIIA (T4, N1, M0) by clinical evaluation. 2. She underwent bronchoscopy with EBUS and biopsy of right hilar lymph node on 07/11/2019. 3. She has a history of having undergone lumpectomy/axillary lymph node sampling and radiation for grade I invasive ductal carcinoma of the left breast, stage IA (T1b, N0, M0), ER/AK positive and HER-2/franco negative. There has been no evidence of recurrence. Her other medical illnesses include: 4. COPD. 5. Hypertension. 6. Hyperlipidemia. 7. Peripheral arterial disease. 8. Degenerative arthritis/degenerative disease of the spine. 9. Osteoporosis. 10. History of hepatitis. With disease by PET/CT limited to 2 focal sites of involvement in the right lung and in 1 hilar lymph node, she was advised to undergo combined chemoradiation. On 08/11/2019 she began cycle 1 of cisplatin/etoposide chemotherapy, with plan to begin concurrent chemoradiation at cycle 2. She had pretty severe fatigue following that treatment, but lasting only several days. She was severely neutropenic at day 15. She recovered after treatment with Neupogen, but it did cause significant bone pain. Plan: She will proceed now with cycle 2 of cisplatin/etoposide chemotherapy. Both will be administered with a 10% dose reduction. She also will now begin Protonix 40 mg daily for the acid reflux. She will be starting radiation to the right lung/mediastinum. Blood counts will be monitored weekly. She will be scheduled for a follow-up visit in 3 weeks. Signed By: Cedric Arango M.D. <<Signature on File>>
[2019-09-02] MEDS: sodium chloride 0.9% 100 ML 75 ML (13:15)
[2019-09-02] MEDS: prochlorperazine 10 mg Tablet PO (13:18)
--- NOTE | 2019-09-02 16:28 | ONCRAD TMN_ITS ---
Radiation Oncology Weekly Treatment Management Patient: Anneliese Garcia MR#: [id number] : 1945> Age: 73> Sex: Female Dictated by: Dr. Mitch Lauren Date of Service: 09/02/2019 Referring Physician(s) : Cedric Arango M.D. Primary Diagnosis: C34.11 - Malignant neoplasm of upper lobe, right bronchus or lung, Diagnosed 07/29/2019 (Active) Stage IIIA, T4, N1, M0 Radiotherapy to date: Course: RT [id number], Treatment Site: R [id number], Ref. ID: [id number], Energy: 6X, Dose/Fx (cGy): 200, #Fx: , Dose Correction (cGy): 0, Total Dose (cGy): 400, Start Date: 09/01/2019, Elapsed Days: 1 Current Complaints/Interval History: Constitutional Complains of mild fatigue. Denies lack of appetite, fever and night sweats. ENMT Complains of altered taste. Denies dysphagia. Cardiovascular Denies chest pain. Respiratory Complains of cough occasionally. Denies dyspnea, hemoptysis and wheezing. Current Medications: AmLODIPine Besylate, aspirin, chantix, cISplatin, dexamethasone Sodium Phosphate, emend, etoposide, furosemide, levaquin, lORazepam, magnesium Sulfate, palonosetron HCl, potassium Chloride, prochlorperazine Maleate, protonix, sertraline HCl, simvastatin, stiolto Respimat, toprol XL, traMADol HCl. Allergies: DULoxetine HCl and FLUoxetine HCl. Vital Signs: Performed on 09/02/2019 3:58 PM BMI - 24.296 kg/m2 (high), Height - 65.00 in, Weight - 146.0 lbs, Temperature - 97.8 f, Pulse - 70, Respiration - 18, O2 Sat - 97 %, Pain - 0 and BP - 145/ 85 mm(hg)(high/). Physical Exam: Appears stable, no skin erythema or desquamation. Performance Status: 1 - No physically strenuous activity, but ambulatory and able to carry out light or sedentary work (e.g. office work, light house work). (ECOG) Lab: None pending in Radiation Oncology. Test performed on 09/01/2019 10:15 AM WBC - 17.6 10 3/ul (high), Platelet Count - 404 10 3/cmm (high), Neutrophils - 11.1 10 3/ul (high), Monocytes - 1.7 10 3/ul (high), Creatinine - 1.1 mg/dl (high), Cr Clearance (Est) - 48.9100 ml/min (low) and Alkaline Phosphatase - 106 iu/l (high). Imaging: No new diagnostic imaging was performed since the last weekly treatment visit. All radiation therapy related imaging (including but not limited to kV, MV, and CBCT generated images) was reviewed. Appropriate changes, if any, were made to assure accurate target localization. Impression/Plan: Tolerating treatment well with expected side effects. Continue treatment as planned. CPT: 71830 Signed by: Dr. Mitch Lauren>09/02/2019 4:26:21 PM <<Signature on File>>
[2019-09-03] MEDS: sodium chloride 0.9% 250 ML 75 ML IV (13:30)
[2019-09-03] MEDS: prochlorperazine 10 mg Tablet PO (13:30)
--- NOTE | 2019-09-10 17:00 | ONCRAD TMN_ITS ---
Radiation Oncology Weekly Treatment Management Patient: Anneliese Garcia MR#: [id number] : 1945> Age: 73> Sex: Female Dictated by: Dr. Basil Henson Date of Service: 09/10/2019 Referring Physician(s) : Cedric Arango M.D. Primary Diagnosis: C34.11 - Malignant neoplasm of upper lobe, right bronchus or lung, Diagnosed 07/29/2019 (Active) Stage IIIA, T4, N1, M0 Radiotherapy to date: Course: RT [id number] Treatment Site: R [id number], Ref. ID: [id number], Energy: 6X, Dose/Fx (cGy): 200, #Fx: , Dose Correction (cGy): 0, Total Dose (cGy): 1,600, Start Date: 09/01/2019, Elapsed Days: 9 Current Complaints/Interval History: Weight declined after constipation resolved. SOB a bit worse. No real sore throat. Eating is fair and she is able to find things that she likes to eat. Constitutional Complains of moderate fatigue. Complains of change in weight down 4.4 lbs. since last week. Denies lack of appetite, fever and night sweats. ENMT Complains of altered taste. Denies dysphagia. Cardiovascular Denies chest pain. Respiratory Complains of a mild cough. Complains of dyspnea associated with normal activity. Denies hemoptysis and wheezing. Current Medications: AmLODIPine Besylate, aspirin, chantix, cISplatin, dexamethasone Sodium Phosphate, emend, etoposide, furosemide, levaquin, lORazepam, magnesium Sulfate, palonosetron HCl, potassium Chloride, prochlorperazine Maleate, protonix, sertraline HCl, simvastatin, stiolto Respimat, toprol XL, traMADol HCl. Allergies: DULoxetine HCl and FLUoxetine HCl. Vital Signs: Performed on 09/10/2019 2:29 PM BMI - 23.564 kg/m2 (high), Height - 65.00 in, Weight - 141.6 lbs, Temperature - 97.6 f, Pulse - 67, Respiration - 18, O2 Sat - 98 %, Pain - 0 and BP - 129/ 79 mm(hg). Physical Exam: Appears stable, no skin erythema or desquamation. Performance Status: 1 - No physically strenuous activity, but ambulatory and able to carry out light or sedentary work (e.g. office work, light house work). (ECOG) Lab: None pending in Radiation Oncology. Test performed on 09/01/2019 10:15 AM WBC - 17.6 10 3/ul (high), Platelet Count - 404 10 3/cmm (high), Neutrophils - 11.1 10 3/ul (high), Monocytes - 1.7 10 3/ul (high), Creatinine - 1.1 mg/dl (high), Cr Clearance (Est) - 48.9100 ml/min (low) and Alkaline Phosphatase - 106 iu/l (high). Imaging: No new diagnostic imaging was performed since the last weekly treatment visit. All radiation therapy related imaging (including but not limited to kV, MV, and CBCT generated images) was reviewed. Appropriate changes, if any, were made to assure accurate target localization. Impression/Plan: Tolerating treatment well with expected side effects. Continue treatment as planned. CPT: 77625 Signed by: Dr. Basil Henson>09/10/2019 4:58:41 PM <<Signature on File>>
[2019-09-16 15:50] LABS: Basophils % 0.7 %; Eosinophils % 1.5 %; Hematocrit 35.2 % (37.0-47.0); Hemoglobin 11.5 g/dL (11.5-15.3); Lymphocytes % 38.3 %; Mean Corpuscular HGB Conc 32.7 g/dL (30.0-36.0); Mean Corpuscular Hemoglobin 30.9 pg (28.0-34.0); Mean Corpuscular Volume 94.6 fL (81-99); Mean Platelet Volume 9.1 fL (7.4-10.4); Monocytes # 0.5 10^3/uL (0.2-0.9); Monocytes % 20.1 %; Neutrophils % 35.3 %; Nucleated Red Blood Cells % 0 %; Platelet Count 216 10^3/cmm (130-400); Red Blood Count 3.72 10^6/uL (4.1-5.3); Red Cell Distribution Width 13.6 % (12.1-15.1); White Blood Count 2.7 10^3/uL (4.0-10.0)
--- NOTE | 2019-09-16 17:15 | ONCRAD TMN_ITS ---
Radiation Oncology Weekly Treatment Management Patient: Anneliese Garcia MR#: [id number] : 1945> Age: 73> Sex: Female Dictated by: Dr. Basil Henson Date of Service: 09/16/2019 Referring Physician(s) : Cedric Arango M.D. Primary Diagnosis: C34.11 - Malignant neoplasm of upper lobe, right bronchus or lung, Diagnosed 07/29/2019 (Active) Stage IIIA, T4, N1, M0 Radiotherapy to date: Course: RT [id number], Treatment Site: R [id number], Ref. ID: [id number], Energy: 6X, Dose/Fx (cGy): 200, #Fx: , Dose Correction (cGy): 0, Total Dose (cGy): 2,400, Start Date: 09/01/2019, Elapsed Days: 15 Current Complaints/Interval History: Some fatigue and able to nap during the day. Swallowing ok but noted a bubble feeling when swallowing sometimes with no actual pain. Eating ok. Breathing Ok. No nausea. Constitutional Complains of moderate fatigue. Denies lack of appetite, fever and night sweats. ENMT Denies dysphagia. Cardiovascular Denies chest pain. Respiratory Complains of a mild cough which is non-productive. Complains of moderate dyspnea associated with normal activity. Denies hemoptysis and wheezing. Current Medications: AmLODIPine Besylate, aspirin, chantix, cISplatin, dexamethasone Sodium Phosphate, emend, etoposide, furosemide, magnesium Sulfate, palonosetron HCl, potassium Chloride, prochlorperazine Maleate, protonix, sertraline HCl, simvastatin, stiolto Respimat, toprol XL, traMADol HCl. Allergies: DULoxetine HCl and FLUoxetine HCl. Vital Signs: Performed on 09/16/2019 3:44 PM BMI - 23.93 kg/m2 (high), Height - 65.00 in, Weight - 143.8 lbs, Temperature - 98.4 f, Pulse - 71, Respiration - 20, O2 Sat - 98 %, Pain - 0 and BP - 117/ 74 mm(hg). Physical Exam: Appears stable, no skin erythema or desquamation. Performance Status: 1 - No physically strenuous activity, but ambulatory and able to carry out light or sedentary work (e.g. office work, light house work). (ECOG) Lab: None pending in Radiation Oncology. Test performed on 09/01/2019 10:15 AM WBC - 17.6 10 3/ul (high), Platelet Count - 404 10 3/cmm (high), Neutrophils - 11.1 10 3/ul (high), Monocytes - 1.7 10 3/ul (high), Creatinine - 1.1 mg/dl (high), Cr Clearance (Est) - 48.9100 ml/min (low) and Alkaline Phosphatase - 106 iu/l (high). Imaging: No new diagnostic imaging was performed since the last weekly treatment visit. All radiation therapy related imaging (including but not limited to kV, MV, and CBCT generated images) was reviewed. Appropriate changes, if any, were made to assure accurate target localization. Impression/Plan: Tolerating treatment well with expected side effects. Continue treatment as planned. She is not inclined to pursue PCI after completing chemo and chest radiation. Discussed that it is a standard of care after achieving a complete response based on phase 3 data. We will review literature with her and on 09/17/2019 CPT: 19919 Signed by: Dr. Basil Henson>09/16/2019 5:14:03 PM <<Signature on File>>
== END 2019-09-18 23:59 | disposition home or self-care (01) ==
LOC: ONCMED 06:53
PROVIDERS: Internal Medicine Medical Oncology; Family Provider Family Medicine; PCP Family Medicine; Visit Provider Radiology Radiation Oncology
DX: Z51.0 Encounter for antineoplastic radiation therapy (principal); Z51.11 Encounter for antineoplastic chemotherapy; C34.11 Malignant neoplasm of upper lobe, right bronchus or lung; C77.1 Secondary and unspecified malignant neoplasm of intrathoracic lymph nodes; E78.5 Hyperlipidemia, unspecified; J44.9 Chronic obstructive pulmonary disease, unspecified; I10 Essential (primary) hypertension; K21.9 Gastro-esophageal reflux disease without esophagitis; I73.9 Peripheral vascular disease, unspecified; M48.9 Spondylopathy, unspecified; M81.0 Age-related osteoporosis without current pathological fracture; Z85.3 Personal history of malignant neoplasm of breast; Z79.899 Other long term (current) drug therapy; Z86.19 Personal history of other infectious and parasitic diseases; Z79.82 Long term (current) use of aspirin
CPT/HCPCS: 36415; 77336; 77386; 80053; 85007; 85025; 96366; 96367; 96372; 96375; 96413; 96417; 99214; J1100; J1442; J1453; J1940; J2469; J3475; J3480; J7030; J7040; J7050; J9060; J9181; Q0164

== ENCOUNTER 2019-10-17 06:46 | Outpatient (RCR) | payer MEDICARE, SELFPAY ==
[2019-09-24 08:21] LABS: Basophils # 0.1 10^3/uL (0.0-0.1); Basophils % 0.8 %; Eosinophils # 0.2 10^3/uL (0.0-0.8); Eosinophils % 2.1 %; Hematocrit 37.7 % (37.0-47.0); Hemoglobin 12.3 g/dL (11.5-15.3); Lymphocytes # 0.8 10^3/uL (0.8-4.8); Mean Corpuscular HGB Conc 32.6 g/dL (30.0-36.0); Mean Corpuscular Hemoglobin 30.5 pg (28.0-34.0); Mean Corpuscular Volume 93.5 fL (81-99); Mean Platelet Volume 8.6 fL (7.4-10.4); Monocytes # 0.8 10^3/uL (0.2-0.9); Monocytes % 11.7 %; Neutrophils # 5.2 10^3/uL (1.8-7.7); Neutrophils % 72.7 %; Nucleated Red Blood Cells % 0 %; Platelet Count 302 10^3/cmm (130-400); Red Blood Count 4.03 10^6/uL (4.1-5.3); Red Cell Distribution Width 15.1 % (12.1-15.1); White Blood Count 7.2 10^3/uL (4.0-10.0)
[2019-09-24] MEDS: sodium chloride 0.9% 250 ML 75 ML IV (08:25)
[2019-09-24 08:35] LABS: Alanine Aminotransferase 9 U/L (0-33); Albumin Level 3.9 g/dL (3.5-5.2); Alkaline Phosphatase 71 IU/L (35-105); Anion Gap 16.2 (5-19); Aspartate Amino Transferase 13 U/L (0-32); Blood Urea Nitrogen 14 mg/dL (8-23); Calcium 9.3 mg/dL (8.5-10.5); Carbon Dioxide 23 mmol/L (22-29); Chloride 102 mmol/L (98-107); Globulin 2.8 g/dL (1.3-4.6); Glucose 124 mg/dL (65-115); Osmolality Calculated 282 mOsm/kg (285-295); Potassium 4.2 mmol/L (3.5-5.1); Sodium 137 mmol/L (136-145); Total Bilirubin 0.2 mg/dL (0.15-1.2); Total Protein 6.7 g/dL (6.6-8.7)
[2019-09-24] MEDS: FUROsemide 10 mg/mL SDV 2mL 20 MG IV (13:12)
[2019-09-24] MEDS: potassium chloride 20 MEQ in sodium chloride 0.9% 500 ML 500 MEQ IV (13:14)
--- NOTE | 2019-09-24 15:49 | ONCRAD TMN_ITS ---
Radiation Oncology Weekly Treatment Management Patient: Anneliese Garcia MR#: [id number] : 1945> Age: 73> Sex: Female Dictated by: Dr. Basil Henson Date of Service: 09/24/2019 Referring Physician(s) : Cedric Arango M.D. Primary Diagnosis: C34.11 - Malignant neoplasm of upper lobe, right bronchus or lung, Diagnosed 07/29/2019 (Active) Stage IIIA, T4, N1, M0 Radiotherapy to date: Course: RT [id number], Treatment Site: R [id number], Ref. ID: [id number], Energy: 6X, Dose/Fx (cGy): 200, #Fx: 18 / 30, Dose Correction (cGy): 0, Total Dose (cGy): 3,600, Start Date: 09/01/2019, Elapsed Days: 23 Current Complaints/Interval History: Chemo today and did well outside of some fatigue. No nausea. Eating ok. Constitutional Complains of moderate fatigue. Denies lack of appetite, fever, night sweats and change in weight. ENMT Denies dysphagia. Cardiovascular Denies chest pain. Respiratory Complains of cough occasionally. Complains of dyspnea associated with normal activity. Denies wheezing. Current Medications: AmLODIPine Besylate, aspirin, cISplatin, dexamethasone Sodium Phosphate, emend, etoposide, furosemide, magnesium Sulfate, palonosetron HCl, potassium Chloride, prochlorperazine Maleate, protonix, sertraline HCl, simvastatin, stiolto Respimat, toprol XL, traMADol HCl. Allergies: DULoxetine HCl and FLUoxetine HCl. Vital Signs: Performed on 09/24/2019 9:28 AM Height - 65.00 in, Weight - 144.2 lbs (high), BSA - 1.72 sq.m, BMI - 24.00, Temperature - 97.9 f (low), Pulse - 72 /min, Respiration - 18 /min, O2 Sat - 96 %, Pain - 0 and BP - 164/ 80 mm(hg)(high/). Physical Exam: Appears stable, no skin erythema or desquamation. Performance Status: 1 - No physically strenuous activity, but ambulatory and able to carry out light or sedentary work (e.g. office work, light house work). (ECOG) Lab: None pending in Radiation Oncology. Test performed on 09/01/2019 10:15 AM WBC - 17.6 10 3/ul (high), Platelet Count - 404 10 3/cmm (high), Neutrophils - 11.1 10 3/ul (high), Monocytes - 1.7 10 3/ul (high), Creatinine - 1.1 mg/dl (high), Cr Clearance (Est) - 48.9100 ml/min (low) and Alkaline Phosphatase - 106 iu/l (high). Imaging: No new diagnostic imaging was performed since the last weekly treatment visit. All radiation therapy related imaging (including but not limited to kV, MV, and CBCT generated images) was reviewed. Appropriate changes, if any, were made to assure accurate target localization. Impression/Plan: Tolerating treatment well with expected side effects. Continue treatment as planned. Long discussion about PCI. Reviewed MD Mcgrath data from Dr. Merrick Scott published in [facility] outlook show that the risk of relapse is 20% without PCI vs 10 % with PCI in the MRI era. Therefore she feels comfortable not pursuing PODOPEDIATRICIAN after chest treatment and chemo. Discussed also with Dr. Arango. CPT: 13096 Signed by: Dr. Basil Henson>09/24/2019 3:47:57 PM <<Signature on File>>
[2019-09-25] MEDS: sodium chloride 0.9% 250 ML 75 ML IV (13:30)
[2019-09-25] MEDS: prochlorperazine 10 mg Tablet PO (13:31)
[2019-09-26] MEDS: sodium chloride 0.9% 250 ML 75 ML IV (09:18)
[2019-09-26] MEDS: prochlorperazine 10 mg Tablet PO (09:18)
--- NOTE | 2019-09-27 11:25 | ONC FU_ITS ---
Dr. Arango Patient Follow-Up Note Patient: Anneliese Garcia Unit #: [id number]: 1945 Dicatated By: Cedric Arango M.D.Date of Visit:September 24, 2019 Onc Med Follow-up/Prog Note Chief Complaint: Lung cancer. History of Present Illness: This is a 73 year-old woman with small cell lung cancer, TNM stage IIIA (T4, N1, M0) by clinical evaluation. 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 She completed radiation in January 2003. She had only brief adjuvant hormonal therapy, stopped at 6 months due to side effects. She has had no evidence of recurrence. She had presented to Dr. Brown with shortness of breath. Her pulmonary function studies in March 2019 showed normal spirometry with severely reduced diffusion capacity. She was referred to Dr. Basilio. Chest CT on on 06/11/2019 showed moderate centrilobular and paraseptal emphysema. There were several noncalcified pleural-based nodules, the most significant in the right upper lobe measuring 10 mm. The findings were suspicious for neoplasm. There was no mediastinal or hilar adenopathy noted. Further evaluation with PET/CT on 06/28/2019 showed a 1.2 cm subpleural nodule in the right upper lobe with SUV 9.8, consistent with a primary lung carcinoma. A 2 cm right upper lobe hilar node had SUV 10.9, consistent with local metastatic disease. An FDG positive pleural-based plaque in the lateral right middle lobe had SUV 8.2, consistent with metastatic disease. On 07/11/2019 she underwent bronchoscopy with EBUS and FNA biopsy of the right hilar lymph node. There was no endobronchial lesion identified and the bronchial washings were nondiagnostic. The FNA biopsy showed numerous cohesive groups of malignant cells with high N/C ratios and neuroendocrine type chromatin, ultimately confirmed to be consistent with small cell carcinoma. I had seen her initially on 07/29/2019. With 2 isolated lung lesions and right hilar node involvement, I was unsure if she was appropriate for concurrent chemoradiation. I opted to have her start chemotherapy with cisplatin/etoposide pending consultation with the radiation oncologist. Ultimately, it was recommended that she proceed with combined therapy beginning with cycle 2 of chemotherapy. Her staging brain MRI on 08/06/2019 showed no evidence of metastatic disease. Her other medical illnesses, in addition to the breast cancer, include COPD, hypertension, hyperlipidemia, peripheral arterial disease, degenerative disease of the spine, and osteoporosis. She has a history of hepatitis. She has a history of smoking 1/2 pack of cigarettes daily for 50 years. She has cut down to 2 or 3 cigarettes/day. INTERIM HISTORY: She began cycle 1 of cisplatin/etoposide chemotherapy on 08/11/2019. She tolerated it without acute toxicity. At day 15 she was severely neutropenic, ANC 400. She was not febrile, and she recovered following treatment with Neupogen. She continued with cycle 2 on 09/01/2019 with the dosages reduced by 10%. At that time she also began concurrent radiation. She is seen for a scheduled visit. She has been feeling pretty good generally. Thus far she has tolerated the radiation with no adverse effects. She says her energy is good enough. Her ECOG score is 1. She has good appetite. She has no fever or night sweats. She says her mouth occasionally feels sore. She also complains that her breathing is not as good as it should be, as she does seem to be getting short of breath more easily. She has just occasional cough. She does not complain of chest pain. She has just occasional nausea. Her acid reflux is adequately managed with medication. Bowel function has been adequate with a stool softener. She has no complaints. She has joint pain everywhere, but overall it has improved somewhat. She has occasional headache and she occasionally has dizziness. She has no focal neurologic symptoms. Medications: amLODIPine Besylate 1 Tablet (of 10 mg) Oral daily, Aspirin 1 Tablet (of 325 mg) Oral daily, Sertraline HCl 1 Tablet (of 100 mg) Oral daily, Simvastatin 1 Tablet (of 10 mg) Oral daily, Stiolto Respimat Aerosol, solution Inhalation, Toprol XL 2 Tablet (of 50 mg) Tablet SR 24 HR Oral daily, traMADol HCl 2 Tablet (of 50 mg) Oral daily Allergies: DULoxetine HCl and FLUoxetine HCl. Review of Systems: Constitutional - Complains of moderate fatigue. Denies lack of appetite, fever, night sweats and change in weight, ENMT - Denies dysphagia, Cardiovascular - Denies chest pain, Respiratory - Complains of cough occasionally. Complains of dyspnea associated with normal activity. Denies wheezing, Constitutional - She is generally feeling good and her energy level is okay. Her appetite is good and weight is stable. No fever, chills, hot flashes, or night sweats. ECOG score is 1, ENMT - Her has some sinus congestion. She has had a few episodes of soreness in her mouth and throat. No difficulty swallowing, Hematologic/Lymphatic - No abnormal bruising or bleeding, Respiratory - She feels like she is getting shortness of breath more easily. No cough. No pleuritic pain or hemoptysis, Cardiovascular - No angina pain. No palpitations, Gastrointestinal - No nausea or vomiting. Her heartburn is well managed with Protonix. She had some mild constipation that is managed with over the counter stool softner. No blood in the stool or black stools, Genitourinary (F) - No dysuria or hematuria. No urinary frequency. No urgency or incontinence, Musculoskeletal - She has generalized arthritis pain, which overall has improved, Integumentary - No skin complications, Neurologic - She has occasional headaches in the mornings. She has dizziness with strenuous activity and positional changes. No numbness/paresthesias or other focal neurologic symptoms, Psychiatric - No anxiety or depression. No insomnia. Vital Signs: Performed on September 24, 2019 15:13 Height - 65.00 in Weight - 144.2 lbs Temperature - 97.9 F Pulse - 72 Respiration - 18 BP - 164/80 mm(hg) (HIGH) O2 Sat - 96 % Pain - 0 Performed on September 24, 2019 15:13 BMI - 23.996 kg/m2 (HIGH) Performed on September 24, 2019 09:28 Height - 65.00 in Weight - 144.2 lbs (HIGH) BSA - 1.72 sq.m BMI - 24.00 Temperature - 97.9 F (LOW) Pulse - 72 /min Respiration - 18 /min BP - 164/80 mm(hg) (HIGH) O2 Sat - 96 % Pain - 0 Physical Examination: Constitutional - She looks pretty good generally, Eyes - Sclerae nonicteric. Conjunctivae clear, ENMT - No lesions noted in the oral cavity, Hematologic/Lymphatic - No cervical, clavicular, or axillary adenopathy, Respiratory - Lungs sound clear with some decrease in air movement bilaterally, Cardiovascular - Heart rhythm is regular. There is a II/ systolic murmur. There is no gallop or rub noted, Abdomen - Soft. Liver and spleen are not enlarged. There is no abdominal mass or ascites noted and there is no inguinal adenopathy, Extremities - No edema, Neurologic - No focal neurologic deficits noted. Lab/Imaging: Test performed on September 24, 2019 08:12 Magnesium 2.0 mg/dL Sodium 137 mmol/L Potassium 4.2 mmol/L Chloride 102 mmol/L CO2 23 mmol/L Anion Gap 16.2 BUN 14 mg/dL Creatinine 0.9 mg/dL Cr Clearance (Est) 59.7800 mL/min Glucose 124 mg/dL Calcium 9.3 mg/dL Protein, Total 6.7 g/dL Albumin 3.9 g/dL Globulin 2.8 g/dL Bilirubin, Total 0.2 mg/dL ALT (SGPT) 9 U/L AST (SGOT) 13 U/L Alkaline Phosphatase 71 IU/L WBC 7.2 10 3/uL RBC 4.03 10 6/uL HGB 12.3 g/dL HCT 37.7 % MCV 93.5 fL MCH 30.5 pg MCHC 32.6 g/dL RDW 15.1 % Platelet Count 302 10 3/cmm MPV 8.6 fL Neutrophils 5.2 10 3/uL Lymphocytes 0.8 10 3/uL Monocytes 0.8 10 3/uL Eosinophils 0.2 10 3/uL Basophils 0.1 10 3/uL Neutrophil % 72.7 % Lymphocyte % 11.0 % Monocyte % 11.7 % Eosinophil % 2.1 % Basophils % 0.8 % Impression: 1. Patient with small cell lung cancer of the right lung, TNM stage IIIA (T4, N1, M0) by clinical evaluation. 2. She underwent bronchoscopy with EBUS and biopsy of right hilar lymph node on 07/11/2019. 3. 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 There has been no evidence of recurrence. Her other medical illnesses include: 4. COPD. 5. Hypertension. 6. Hyperlipidemia. 7. Peripheral arterial disease. 8. Degenerative arthritis/degenerative disease of the spine. 9. Osteoporosis. 10. History of hepatitis. With disease by PET/CT limited to 2 focal sites of involvement in the right lung and in 1 hilar lymph node, she was advised to undergo combined chemoradiation. On 08/11/2019 she began cycle 1 of cisplatin/etoposide chemotherapy, with plan to begin concurrent chemoradiation at cycle 2. She had pretty severe fatigue following that treatment, but lasting only several days. She was severely neutropenic at day 15. She recovered after treatment with Neupogen, but it did cause significant bone pain. She continued with cycle 2 on 09/01/2019 with the dosages reduced by 10%. At that time she also began concurrent radiation. Thus far she is tolerating the treatment well. She has not yet been evaluated for response. Plan: She will continue with cycle 3 of cisplatin/etoposide chemotherapy. The dosages remain the same. She continues radiation concurrently. Blood counts will be monitored weekly. She will be scheduled for a follow-up visit in 3 weeks. I will defer her restaging evaluation until after the 4th cycle of chemotherapy. Signed By: Cedric Arango M.D. <<Signature on File>>
--- NOTE | 2019-09-30 16:04 | ONCRAD TMN_ITS ---
Radiation Oncology Weekly Treatment Management Patient: Anneliese Garcia MR#: [id number] : 1945> Age: 73> Sex: Female Dictated by: Dr. Basil Henson Date of Service: 09/30/2019 Referring Physician(s) : Cedric Arango M.D. Primary Diagnosis: C34.11 - Malignant neoplasm of upper lobe, right bronchus or lung, Diagnosed 07/29/2019 (Active) Stage IIIA, T4, N1, M0 Radiotherapy to date: Course: RT [id number], Treatment Site: R [id number], Ref. ID: [id number], Energy: 6X, Dose/Fx (cGy): 200, #Fx: , Dose Correction (cGy): 0, Total Dose (cGy): 4,400, Start Date: 09/01/2019, Elapsed Days: Current Complaints/Interval History: She notes increasing fatigue and some palpitations when walking upstairs. She is eating well with good appetite. She has minimal a.m. headaches each morning. Associated with minimal nausea treated with Compazine. She has some sore throat. She is trying to retain some activity level along with daily napping. Constitutional Complains of lack of appetite off and on. Complains of mild fatigue. Complains of change in weight in which he is down 1.8 lbs. since last OTV. Denies fever and night sweats. ENMT Complains of dysphagia that occurred recently but is improving. Cardiovascular Complains of frequent palpatiations associated with light headedness and will occur with excertion. Denies chest pain. Respiratory Complains of a mild cough which is productive. Complains of dyspnea associated with normal activity. Denies hemoptysis and wheezing. Current Medications: AmLODIPine Besylate, aspirin, cISplatin, dexamethasone Sodium Phosphate, emend, etoposide, furosemide, magnesium Sulfate, palonosetron HCl, potassium Chloride, prochlorperazine Maleate, protonix, sertraline HCl, simvastatin, stiolto Respimat, toprol XL, traMADol HCl. Allergies: DULoxetine HCl and FLUoxetine HCl. Vital Signs: Performed on 09/30/2019 3:29 PM BMI - 23.697 kg/m2 (high), Height - 65.00 in, Weight - 142.4 lbs, Temperature - 98.4 f, Pulse - 90, Respiration - 18, O2 Sat - 99 %, Pain - 0 and BP - 131/ 79 mm(hg). Physical Exam: Appears stable, no skin erythema or desquamation. Performance Status: 1 - No physically strenuous activity, but ambulatory and able to carry out light or sedentary work (e.g. office work, light house work). (ECOG) Lab: None pending in Radiation Oncology. Test performed on 09/24/2019 8:12 AM RBC - 4.03 10 6/ul (low), Cr Clearance (Est) - 59.7800 ml/min (low) and Glucose - 124 mg/dl (high). Imaging: No new diagnostic imaging was performed since the last weekly treatment visit. All radiation therapy related imaging (including but not limited to kV, MV, and CBCT generated images) was reviewed. Appropriate changes, if any, were made to assure accurate target localization. Impression/Plan: Tolerating treatment well with expected side effects. Continue treatment as planned. We will add Magic mouthwash before meals and as needed for her radiation esophagitis and continue treatment as planned CPT: [address]: [address] Basil Henson>09/30/2019 4:03:29 PM <<Signature on File>>
--- NOTE | 2019-10-08 16:24 | ONCRAD TMN_ITS ---
Radiation Oncology Weekly Treatment Management Patient: Anneliese Garcia MR#: [id number] : 1945> Age: 73> Sex: Female Dictated by: Dr. Basil Henson Date of Service: 10/08/2019 Referring Physician(s) : Cedric Arango M.D. Primary Diagnosis: C34.11 - Malignant neoplasm of upper lobe, right bronchus or lung, Diagnosed 07/29/2019 (Active) Stage IIIA, T4, N1, M0 Radiotherapy to date: Course: RT [id number], Treatment Site: R [id number], Ref. ID: [id number], Energy: 6X, Dose/Fx (cGy): 200, #Fx: 30, Dose Correction (cGy): 0, Total Dose (cGy): 5,600, Start Date: 09/01/2019, End Date: 10/08/2019, Elapsed Days: 37 Current Complaints/Interval History: She notes ongoing modest cough productive of some yellow sputum. She has no fevers or chest pain. She has some shortness of breath with exercise. She remains active. Energy level is unchanged she is eating well and sleeping well at night. Constitutional Complains of mild fatigue. Denies lack of appetite, fever, night sweats and change in weight. ENMT Complains of dysphagia. Cardiovascular Denies chest pain. Respiratory Complains of a moderate cough which is productive. Complains of dyspnea associated with normal activity. Denies hemoptysis and wheezing. Current Medications: AmLODIPine Besylate, aspirin, cISplatin, dexamethasone Sodium Phosphate, emend, etoposide, furosemide, magnesium Sulfate, palonosetron HCl, potassium Chloride, prochlorperazine Maleate, protonix, sertraline HCl, simvastatin, stiolto Respimat, toprol XL, traMADol HCl. Allergies: DULoxetine HCl and FLUoxetine HCl. Vital Signs: Performed on 10/08/2019 3:32 PM BMI - 24.229 kg/m2 (high), Height - 65.00 in, Weight - 145.6 lbs, Temperature - 98.6 f, Pulse - 77, Respiration - 18, O2 Sat - 98 %, Pain - 0 and BP - 138/ 88 mm(hg). Physical Exam: Appears stable, no skin erythema or desquamation. Performance Status: 1 - No physically strenuous activity, but ambulatory and able to carry out light or sedentary work (e.g. office work, light house work). (ECOG) Lab: None pending in Radiation Oncology. Test performed on 09/24/2019 8:12 AM RBC - 4.03 10 6/ul (low), Cr Clearance (Est) - 59.7800 ml/min (low) and Glucose - 124 mg/dl (high). Imaging: No new diagnostic imaging was performed since the last weekly treatment visit. All radiation therapy related imaging (including but not limited to kV, MV, and CBCT generated images) was reviewed. Appropriate changes, if any, were made to assure accurate target localization. Impression/Plan: Tolerating treatment well with expected side effects. Continue treatment as planned. She will complete chest radiation therapy on October 09. We discussed PCI including recent data from Dr. Wilman Scott at [facility] which question the value of PCI with current MRI brain staging. She is therefore declined PCI. I reviewed this with Dr. Arango as well. CPT: 44494 Signed by: Dr. Basil Henson>10/08/2019 4:23:31 PM <<Signature on File>>
[2019-10-15] MEDS: sodium chloride 0.9% 250 ML 75 ML IV (10:00)
[2019-10-15 10:26] LABS: Basophils % 0.4 %; Eosinophils # 0.1 10^3/uL (0.0-0.8); Eosinophils % 1.2 %; Hematocrit 31.7 % (37.0-47.0); Hemoglobin 10.5 g/dL (11.5-15.3); Lymphocytes # 0.7 10^3/uL (0.8-4.8); Lymphocytes % 13.7 %; Mean Corpuscular HGB Conc 33.1 g/dL (30.0-36.0); Mean Corpuscular Hemoglobin 32.5 pg (28.0-34.0); Mean Corpuscular Volume 98.1 fL (81-99); Mean Platelet Volume 9.1 fL (7.4-10.4); Monocytes # 0.8 10^3/uL (0.2-0.9); Monocytes % 15.1 %; Neutrophils # 3.4 10^3/uL (1.8-7.7); Neutrophils % 67.6 %; Nucleated Red Blood Cells % 0 %; Platelet Count 162 10^3/cmm (130-400); Red Blood Count 3.23 10^6/uL (4.1-5.3); Red Cell Distribution Width 17.3 % (12.1-15.1)
[2019-10-15 10:43] LABS: Alanine Aminotransferase 9 U/L (0-33); Albumin Level 3.9 g/dL (3.5-5.2); Alkaline Phosphatase 72 IU/L (35-105); Anion Gap 15.4 (5-19); Aspartate Amino Transferase 13 U/L (0-32); Blood Urea Nitrogen 15 mg/dL (8-23); Calcium 8.8 mg/dL (8.5-10.5); Carbon Dioxide 23 mmol/L (22-29); Chloride 102 mmol/L (98-107); Globulin 2.2 g/dL (1.3-4.6); Glucose 132 mg/dL (65-115); Osmolality Calculated 280 mOsm/kg (285-295); Potassium 4.4 mmol/L (3.5-5.1); Sodium 136 mmol/L (136-145); Total Bilirubin 0.2 mg/dL (0.15-1.2); Total Protein 6.1 g/dL (6.6-8.7)
[2019-10-15] MEDS: FUROsemide 10 mg/mL SDV 2mL 20 MG IV (14:53)
[2019-10-15] MEDS: sodium chlor 0.9% + KCl 20 mEq 20 MEQ/1,000 ML BAG 1000 MEQ IV (14:55)
[2019-10-17] MEDS: prochlorperazine 10 mg Tablet PO (08:16)
[2019-10-17] MEDS: sodium chloride 0.9% 250 ML 75 ML IV (08:18)
--- NOTE | 2019-10-20 10:37 | ONC FU_ITS ---
[facility] Patient Note Patient: Anneliese Garcia Unit #: [id number]: 1945 Dictated By: George RodasDate of Visit: October 15, 2019 Onc MED Follow-Up/Prog Note Chief Complaint: Lung cancer. History of Present Illness: Ms Garcia is a 73 year-old woman with small cell lung cancer, TNM stage IIIA (T4, N1, M0) by clinical evaluation. 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 She completed radiation in January 2003. She had only brief adjuvant hormonal therapy, stopped at 6 months due to side effects. She has had no evidence of recurrence. She had presented to Dr. Brown with shortness of breath. Her pulmonary function studies in March 2019 showed normal spirometry with severely reduced diffusion capacity. She was referred to Dr. Basilio. Chest CT on on 06/11/2019 showed moderate centrilobular and paraseptal emphysema. There were several noncalcified pleural-based nodules, the most significant in the right upper lobe measuring 10 mm. The findings were suspicious for neoplasm. There was no mediastinal or hilar adenopathy noted. Further evaluation with PET/CT on 06/28/2019 showed a 1.2 cm subpleural nodule in the right upper lobe with SUV 9.8, consistent with a primary lung carcinoma. A 2 cm right upper lobe hilar node had SUV 10.9, consistent with local metastatic disease. An FDG positive pleural-based plaque in the lateral right middle lobe had SUV 8.2, consistent with metastatic disease. On 07/11/2019 she underwent bronchoscopy with EBUS and FNA biopsy of the right hilar lymph node. There was no endobronchial lesion identified and the bronchial washings were nondiagnostic. The FNA biopsy showed numerous cohesive groups of malignant cells with high N/C ratios and neuroendocrine type chromatin, ultimately confirmed to be consistent with small cell carcinoma. Dr Arango had seen her initially on 07/29/2019. With 2 isolated lung lesions and right hilar node involvement, he stated he was unsure if she was appropriate for concurrent chemoradiation. He opted to have her start chemotherapy with cisplatin/etoposide pending consultation with the radiation oncologist. Ultimately, it was recommended that she proceed with combined therapy beginning with cycle 2 of chemotherapy. Her staging brain MRI on 08/06/2019 showed no evidence of metastatic disease. Her other medical illnesses, in addition to the breast cancer, include COPD, hypertension, hyperlipidemia, peripheral arterial disease, degenerative disease of the spine, and osteoporosis. She has a history of hepatitis. She has a history of smoking 1/2 pack of cigarettes daily for 50 years. She has cut down to 2 or 3 cigarettes/day. INTERIM HISTORY: She began cycle 1 of cisplatin/etoposide chemotherapy on 08/11/2019. She tolerated it without acute toxicity. At day 15 she was severely neutropenic, ANC 400. She was not febrile, and she recovered following treatment with Neupogen. She continued with cycle 2 on 09/01/2019 with the dosages reduced by 10%. At that time she also began concurrent radiation. She is tolerating treatment well overall. She is here today for follow-up. This will be cycle 4 and her last planned chemotherapy. She has no new concerns today. She states overall she is feeling pretty good. She has had no fever or chills. She states she has not had any signs of infection for at least the last 24 to 72 hours. She denies any pain. She states her breathing is about the same. She is had no abdominal pain, diarrhea or constipation. She denies any lower extremity edema. She states overall she feels pretty good. Her ECOG is 1. Past Medical History: Degenerative disease of the spine with chronic back pain Hepatitis Hyperlipidemia Hypertension Osteoporosis Peripheral artery disease History of lumpectomy/radiation for left breast cancer in 2002 Past Surgical History: Arthroscopic right knee surgery Cholecystectomy Closed reduction and pinning of left distal radius fracture Colonoscopy Hysterectomy/bilateral salpingectomy-oophorectomy Iliac artery stent placement Bronchoscopy with EBUS and FNA biopsy of right hilar lymph node in 2019 Left breast lumpectomy and axillary lymph node sampling in 2002 Allergies: DULoxetine HCl and FLUoxetine HCl. Medications: amLODIPine Besylate 1 Tablet (of 10 mg) Oral daily Aspirin 1 Tablet (of 325 mg) Oral daily Sertraline HCl 1 Tablet (of 100 mg) Oral daily Simvastatin 1 Tablet (of 10 mg) Oral daily Stiolto Respimat Aerosol, solution Inhalation Toprol XL 2 Tablet (of 50 mg) Tablet SR 24 HR Oral daily traMADol HCl 2 Tablet (of 50 mg) Oral daily Family History: Ms. Garcia's mother at age 78: alzheimers, and sepsis; Alzheimer's. Ms. Garcia's father at age 80: nonhodgkins lymphoma; Non- Hodgkins lymphoma. Ms. Garcia has 1 brother who is : lung infection. She has 1 sister who is : alzheimers, and lung disease, and diabetes. Father of lymphoma at age 80. Mother at age 78 with sepsis complicating Alzheimer's dementia. A brother at age 76 with aspiration pneumonia. A sister at age 82 with dementia, diabetes, and lung disease. Social History: Ms. Garcia is and she is an unknown. She is a daily smoker who has smoked 0.5 packs/day for 45 years. She drinks occasionally. She has a history of smoking 1/2 pack of cigarettes daily for50 years. She has cut down to 1 cigarettes per day. Review Of Symptoms: Constitutional Denies fevers, chills, night sweats, excessive fatigue or weight loss. Allergic/Immunologic No reactions. Eyes Denies significant visual changes. No diplopia. No amaurosis. ENMT Denies changes in hearing, sore throat, mouth sores, difficulty or changes in swallowing ability, and/or sinus drainage. Endocrine No diabetes, thyroid disease or hormone replacement. Denies hot flashes or night sweats. Hematologic/Lymphatic Denies easy bruising or bleeding. The patient denies any tender or palpable lymph nodes. Respiratory Denies dyspnea on exertion, chest pain, cough or hemoptysis. Denies orthopnea. Cardiovascular Denies anginal chest pain, palpitations or orthopnea. Gastrointestinal Denies nausea, vomiting, diarrhea, GI bleeding, or constipation. Denies change in bowel habits and/or stool color, no heartburn or early satiety. Genitourinary (F) No hematuria, hesitancy, incontinence, vaginal bleeding, discharge or other problems with urination. Musculoskeletal Denies joint pain, swelling or redness. No decreased range of motion. Integumentary Denies chronic rashes, inflammation, ulcerations or skin changes. Neurologic Denies headache, blurred vision, and no areas of focal weakness or numbness. Normal gait. No sensory problems. Psychiatric Denies insomnia, depression, rebeca or mood swings. Vital Signs: Performed on October 15, 2019 10:52 Height - 65.00 in Weight - 144.6 lbs (LOW) BSA - 1.72 sq.m BMI - 24.06 Temperature - 98.3 F (LOW) Pulse - 75 /min Respiration - 20 /min BP - 100/61 mm(hg) O2 Sat - 97 % Pain - 0,1 - No physically strenuous activity, but ambulatory and able to carry out light or sedentary work (e.g. office work, light house work). (ECOG) Physical Examination: Constitutional Alert, oriented, no acute distress. Skin pink, warm and dry. Head Normocephalic; atraumatic. Eyes Conjunctivae and sclerae are clear and without icterus. Pupils are reactive and equal. ENMT No oral exudates, ulcers, masses, thrush or mucositis. Oropharynx clear. Tongue normal. Neck Supple without masses or thyromegaly. No jugular venous distension. Hematologic/Lymphatic No petechiae or purpura. No tender or palpable lymph nodes in the cervical or supraclavicular areas. Respiratory Lungs are clear to auscultation without rhonchi or wheezing. Cardiovascular Regular rate and rhythm of heart without murmurs,clicks, gallops or rubs. Abdomen Non-tender, non-distended, no masses or ascites. Good bowel sounds noted in all quads. No guarding or rebound tenderness. No pulsatile masses. Back/Spine Non-tender to palpation. Extremities No visible deformities, no cyanosis, clubbing or edema. Musculoskeletal No tenderness or swelling, normal range of motion without obvious weakness. Integumentary No rashes or lesions. Neurologic No sensory or motor deficits, normal cerebellar function, normal gait. Psychiatric Alert and oriented times three. Coherent speech. Verbalizes understanding of our discussions today. Laboratory:Test performed on October 15, 2019 09:38 Sodium 136 mmol/L Potassium 4.4 mmol/L Chloride 102 mmol/L CO2 23 mmol/L Anion Gap 15.4 BUN 15 mg/dL Creatinine 1.1 mg/dL Cr Clearance (Est) 48.9100 mL/min Glucose 132 mg/dL Calcium 8.8 mg/dL Protein, Total 6.1 g/dL Albumin 3.9 g/dL Globulin 2.2 g/dL Bilirubin, Total 0.2 mg/dL ALT (SGPT) 9 U/L AST (SGOT) 13 U/L Alkaline Phosphatase 72 IU/L WBC 5.0 10 3/uL RBC 3.23 10 6/uL HGB 10.5 g/dL HCT 31.7 % MCV 98.1 fL MCH 32.5 pg MCHC 33.1 g/dL RDW 17.3 % Platelet Count 162 10 3/cmm MPV 9.1 fL Neutrophils 3.4 10 3/uL Lymphocytes 0.7 10 3/uL Monocytes 0.8 10 3/uL Eosinophils 0.1 10 3/uL Basophils 0.0 10 3/uL Neutrophil % 67.6 % Lymphocyte % 13.7 % Monocyte % 15.1 % Eosinophil % 1.2 % Basophils % 0.4 % Impression: 1. Patient with small cell lung cancer of the right lung, TNM stage IIIA (T4, N1, M0) by clinical evaluation. 2. She underwent bronchoscopy with EBUS and biopsy of right hilar lymph node on 07/11/2019. 3. 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 There has been no evidence of recurrence. Her other medical illnesses include: 4. COPD. 5. Hypertension. 6. Hyperlipidemia. 7. Peripheral arterial disease. 8. Degenerative arthritis/degenerative disease of the spine. 9. Osteoporosis. 10. History of hepatitis. With disease by PET/CT limited to 2 focal sites of involvement in the right lung and in 1 hilar lymph node, she was advised to undergo combined chemoradiation. On 08/11/2019 she began cycle 1 of cisplatin/etoposide chemotherapy, with plan to begin concurrent chemoradiation at cycle 2. She had pretty severe fatigue following that treatment, but lasting only several days. She was severely neutropenic at day 15. She recovered after treatment with Neupogen, but it did cause significant bone pain. She continued with cycle 2 on 09/01/2019 with the dosages reduced by 10%. At that time she also began concurrent radiation. Thus far she is tolerating the treatment well. She has not yet been evaluated for response. Plan: 1. Proceed with cycle 4 of cisplatin/etoposide chemotherapy. She continues radiation concurrently. 2. Continue current anti-medics as they are working well for her. 3. Labs from today were reviewed in detail and discussed with Ms. Garcia and a copy was given to her. WBC 5.0, hemoglobin 10.5, platelets 162,000 and ANC is 3400. Creatinine is 1.1 potassium 4.4 LFTs are normal. 4. Ms. Deleon will have follow-up imaging with a CT of the chest with contrast. We will do this in 3 to 4 weeks just before her follow-up with Dr. Arango for posttreatment follow-up. 5. Ms. Deleon was instructed to contact us in interim should questions or problems arise. 6. We did prescribe Diflucan 100 mg p.o. daily for concern of mild oral Marry. Her mouth is just slightly irritated and slightly discolored with the thrush. Signed By: George Rodas-, CNP Cedric Arango MD <<Signature on File>>
== END 2019-10-19 23:59 | disposition home or self-care (01) ==
LOC: ONCMED 06:46
PROVIDERS: Nurse Practitioner; Absent Provider Radiology Radiation Oncology; PCP Family Medicine; Visit Provider Internal Medicine Medical Oncology
DX: Z51.0 Encounter for antineoplastic radiation therapy (principal); Z51.11 Encounter for antineoplastic chemotherapy; C34.11 Malignant neoplasm of upper lobe, right bronchus or lung; C77.1 Secondary and unspecified malignant neoplasm of intrathoracic lymph nodes; B37.0 Candidal stomatitis; J44.9 Chronic obstructive pulmonary disease, unspecified; I10 Essential (primary) hypertension; E78.5 Hyperlipidemia, unspecified; I73.9 Peripheral vascular disease, unspecified; M19.90 Unspecified osteoarthritis, unspecified site; M48.9 Spondylopathy, unspecified; M81.0 Age-related osteoporosis without current pathological fracture; Z85.3 Personal history of malignant neoplasm of breast; Z79.899 Other long term (current) drug therapy; Z86.19 Personal history of other infectious and parasitic diseases; Z79.82 Long term (current) use of aspirin; Z79.52 Long term (current) use of systemic steroids
CPT/HCPCS: 77336; 77386; 80053; 83735; 85025; 96366; 96367; 96368; 96375; 96413; 96417; 99214; J1100; J1453; J1940; J2469; J3475; J3480; J7030; J7040; J7050; J9060; J9181; Q0164

== ENCOUNTER 2019-10-20 14:15 | Outpatient (CLI) | payer MEDICARE, SELFPAY ==
--- NOTE | 2019-10-20 14:46 | PFTS_ITS ---
Date of Study:10/20/19 Date oF Dictation: MECHANICS: Forced vital capacity (FVC) is normal. Forced expiratory volume in one second (FEV1) is normal. FEV1/FVC is normal. FLOW VOLUME LOOP: Mild hesitation. LUNG VOLUMES: Not measured DIFFUSING CAPACITY FOR CARBON MONOXIDE: Severely reduced. INTERPRETATION: The spirometry essentially normal. Gas exchange (DLCO) is severely diminished. This could be consistent with pulmonary hypertension. MTDD
== END 2019-10-20 14:16 | disposition home or self-care (01) ==
LOC: RT 14:19
PROVIDERS: PCP Family Medicine; Visit Provider Internal Medicine Critical Care Medicine
DX: C34.90 Malignant neoplasm of unspecified part of unspecified bronchus or lung (principal)
CPT/HCPCS: 94010; 94729

== ENCOUNTER 2019-11-10 08:19 | Outpatient (CLI) | payer MEDICARE, SELFPAY ==
--- NOTE | 2019-11-10 | CT_ITS ---
WS: [id number] CT CHEST TECHNIQUE: Contrast enhanced CT of the chest with coronal and sagittal reformatted images. CLINICAL INFORMATION: LUNG CANCER POST TREATMENT COMPARISON: CT chest 06/11/19 July 10, and PET/CT to 2019 DLP: 612.[address] scans at [facility] use at least one of these dose optimization techniques: automat ed exposure control; mA and/or kV adjustment per patient size (includes targeted exams where dose is matched to clinical indication); or iterative reconstruction. FINDINGS: Advanced chronic emphysematous changes. Previously described subpleural nodule right upper lobe has d ecreased in size since the prior PET/CT and chest CT. Today this measures approximately 6 mm compared to 9 to 10 mm previous. Previously described right hilar lymph node has decreased in size today candace uring 7 mm compared to 2.0 cm previous. Previously described small pleural metastasis right middle lo be has resolved and no longer seen today. Subsegmental atelectasis in the lung bases. Thyroid gland is normal. Mild aortic calcification. Coron nate calcification. Normal caliber descending thoracic aorta with moderate atheromatous disease. No me diastinal or hilar lymphadenopathy. No subcarinal lymphadenopathy. Right renal cyst measuring 4.9 CM. Adrenal glands are normal. Cholecystectomy clips. Mild diffuse fatty infiltration the liver. Normal visualized bony structures. Mild thoracic kyphosis. CT/CT chest w con* [id number] IMPRESSION: 1. Interval improvement in the previously described pulmonary nodules and righ t hilar lymphadenopathy. Findings compatible with interval response to therapy. 2. Right upper lobe pleural-based nodule has decreased in size today measuring 6 mm. 3. Right hilar lymphadenopathy has resolved. 4. Right middle lobe pleural metastasis has resolved. 5. Right renal cyst measuring 4.9 CM.
[2019-11-10] MEDS: iodixanol 320 mg/mL 100mL Btl IV (10:18)
== END 2019-11-10 08:20 | disposition home or self-care (01) ==
LOC: RADWPI 08:23
PROVIDERS: Family Provider Family Medicine; PCP Family Medicine; Visit Provider Nurse Practitioner
DX: C34.11 Malignant neoplasm of upper lobe, right bronchus or lung (principal); R91.1 Solitary pulmonary nodule; Q61.01 Congenital single renal cyst
CPT/HCPCS: 71260; Q9967

== ENCOUNTER 2019-11-12 06:51 | Outpatient (RCR) | payer MEDICARE, SELFPAY ==
--- NOTE | 2019-11-10 11:28 | ONCRAD EPV_ITS ---
Radiation Oncology Established Patient Visit Patient: Nicholas MR#: [id number] : 1945> Age: 74> Sex: Female> Dictated by: Dr. Ken Campo Date of Service: 11/10/2019 Referring Physician(s) : Cedric Arango M.D. Diagnosis: C34.11 - Malignant neoplasm of upper lobe, right bronchus or lung, Diagnosed 07/29/2019 (Active) Stage IIIA, T4, N1, M0 Radiotherapy to Date: Course: RT [id number], Treatment Site: R [id number], Ref. ID: [id number], Energy: 6X, Dose/Fx (cGy): 200, #Fx: 30 / 30, Dose Correction (cGy): 0, Total Dose (cGy): 6,000, Start Date: 09/01/2019, End Date: 10/10/2019, Elapsed Days: 39 Chief Complaint / History of Present Illness: Ms. Garcia returns for follow-up. She completed radiation 10/10/2019. She states that she has received 4 courses of chemotherapy. She received previous radiation for breast cancer. Since completing treatment she has had moderate fatigue, dyspnea with exertion, and early satiety. She has a mild cough with occasional phlegm production. No hemoptysis. She does not have any new or unusual bone pain. She has orthostatic lightheadedness at times. She has not passed out. She occasionally has flat breakdown processor headaches on awakening. However, she is not taking any medications for them and they tend to resolve without further headaches through the day. Current Medications: AmLODIPine Besylate, aspirin, cISplatin, dexamethasone Sodium Phosphate, emend, etoposide, fluconazole, furosemide, magnesium Sulfate, palonosetron HCl, potassium Chloride, prochlorperazine Maleate, protonix, sertraline HCl, simvastatin, stiolto Respimat, toprol XL, traMADol HCl. Allergies: DULoxetine HCl and FLUoxetine HCl. Current Complaints / Review of Systems: Constitutional - Complains of moderate fatigue. Complains of change in weight down 2 lbs. since 10/15/19. Denies lack of appetite, fever and night sweats. Eyes - Denies blurred vision and double vision. ENMT - Complains of mouth dryness occasionally and altered taste occasionally. Denies dysphagia but occasionally has odynophagia, ear pain and stomatitis. Neck - Denies neck pain. Integumentary - Denies rash. Breasts - Complains of pain in both breasts in which she states is more like the breast tissue is tender. Cardiovascular - Complains of occasional palpatiations. Denies chest pain and edema. Respiratory - Complains of a mild cough which is productive. Denies hemoptysis and wheezing. Gastrointestinal - Complains of intermittent constipation. Complains of heartburn / dyspepsia. Complains of nausea. Complains of vomiting which happend about a week ago. Denies abdominal pain and diarrhea. Genitourinary (F) - Complains of nocturia gets up about 1 time per night. Denies dysuria, frequency, urgency, vaginal discharge / bleeding and vaginal spotting. Musculoskeletal - Complains of generalized muscle weakness which is moderate in nature. Denies bone pain and joint pain. Neurologic - Complains of intermittent dizziness. Complains of headaches occurring in the flat breakdown processor which happens occasionally. Denies abnormal gait. Endocrine - Denies diabetes and thyroid disease. Hematologic/Lymphatic - Denies tender or enlarged lymph nodes.. Vital Signs: Performed on 11/10/2019 10:17 AM BMI - 23.73 kg/m2 (high), Height - 65.00 in, Weight - 142.6 lbs, Temperature - 97.0 f, Pulse - 63, Respiration - 20, O2 Sat - 97 %, Pain - 0 and BP - 121/ 79 mm(hg). Physical Exam: General: Alert and oriented x 3. No acute distress. HEENT: Normocephalic, atraumatic. Extraocular Movements Intact: Pupils Equal, Round, Reactive to Light and Accommodation: Sclerae anicteric. Oral cavity is clear without lesions, masses or ulcers. NECK: Supple without supraclavicular or jugular lymphadenopathy. LUNGS: Clear to auscultation bilaterally without rales, rhonchi or wheeze. HEART: Regular rate and rhythm, normal S1 and S2 without murmur, gallop or rub. MUSCULOSKELETAL: No tenderness or percussion pain over the axial skeleton, scapulae or pelvis. ABDOMEN: Soft, nontender, nondistended without masses or organomegaly. Bowell sounds are present. EXTREMITIES: No peripheral edema is identified. Limited motor and sensory examination are grossly intact and symmetric bilaterally. NEUROLOGIC: Cranial nerves II ???XII are grossly intact. Normal sensation, strength 5/5 in all extremities, normal gait, no ataxia. Normal [id number] exam. Normal [id number] exam. Performance Status: KPS:70 Lab: None pending. Test performed on 10/15/2019 9:38 AM RBC - 3.23 10 6/ul (low), HGB - 10.5 g/dl (low), HCT - 31.7 % (low), RDW - 17.3 % (high), Lymphocytes - 0.7 10 3/ul (low), Creatinine - 1.1 mg/dl (high), Cr Clearance (Est) - 48.9100 ml/min (low), Glucose - 132 mg/dl (high) and Protein, Total - 6.1 g/dl (low). Pathology: Primary, c34.11 - malignant neoplasm of upper lobe, right bronchus or lung, Diagnosed 07/29/2019 (active) stage iiia, t4, n1, m0. Imaging: A contrast-enhanced CT of the chest was performed this morning. It shows improvement. The advanced emphysema is unchanged. The subpleural nodule in the right upper lobe has decreased from 9 to 10 mm in size to approximately 6 mm. The right middle lobe pleural nodule has resolved. The right hilar lymph node has decreased in size from 20 mm to 7 mm (within normal range according to size). No new evidence of disease detected. Impression: Improvement on imaging. Mrs. Garcia is still experiencing side effects from treatment. I told her that it often takes several months to fully recover from a course of combined chemotherapy and radiation. I also pointed out to her that she has previously had radiation for breast cancer, which along with the emphysema affects her pulmonary reserve. We discussed prophylactic cranial radiation. She discussed this issue with Dr. Henson and came to the conclusion that she does not desire PCI. We went back through this issue today and she confirmed that she does not desire PCI. She sees Dr. Arango Sunday. She will return for follow-up in radiation oncology in 3 months. Signed by: 11/10/2019 11:26:57 AM <<Signature on File>> Time spent with patient: CPT Code: CPT Code:
[2019-11-12 09:27] LABS: Basophils % 0.5 %; Eosinophils # 0.1 10^3/uL (0.0-0.8); Eosinophils % 0.8 %; Hematocrit 32.8 % (37.0-47.0); Hemoglobin 10.3 g/dL (11.5-15.3); Lymphocytes # 0.6 10^3/uL (0.8-4.8); Lymphocytes % 8.4 %; Mean Corpuscular HGB Conc 31.4 g/dL (30.0-36.0); Mean Corpuscular Hemoglobin 32.5 pg (28.0-34.0); Mean Corpuscular Volume 103.5 fL (81-99); Mean Platelet Volume 8.6 fL (7.4-10.4); Monocytes % 12.6 %; Neutrophils # 5.8 10^3/uL (1.8-7.7); Neutrophils % 76.3 %; Nucleated Red Blood Cells % 0 %; Platelet Count 261 10^3/cmm (130-400); Red Blood Count 3.17 10^6/uL (4.1-5.3); Red Cell Distribution Width 19.3 % (12.1-15.1); White Blood Count 7.6 10^3/uL (4.0-10.0)
[2019-11-12 09:43] LABS: Alanine Aminotransferase 10 U/L (0-33); Albumin Level 4.2 g/dL (3.5-5.2); Alkaline Phosphatase 75 IU/L (35-105); Anion Gap 15.3 (5-19); Aspartate Amino Transferase 14 U/L (0-32); Blood Urea Nitrogen 19 mg/dL (8-23); Calcium 9.6 mg/dL (8.5-10.5); Carbon Dioxide 24 mmol/L (22-29); Chloride 103 mmol/L (98-107); Glucose 98 mg/dL (65-115); Osmolality Calculated 282 mOsm/kg (285-295); Potassium 4.3 mmol/L (3.5-5.1); Sodium 138 mmol/L (136-145); Total Bilirubin 0.3 mg/dL (0.15-1.2); Total Protein 6.2 g/dL (6.6-8.7)
--- NOTE | 2019-11-12 19:07 | ONC FU_ITS ---
Dr. Arango Patient Follow-Up Note Patient: Anneliese Garcia Unit #: [id number]: 1945 Dicatated By: Cedric Arango M.D.Date of Visit:Nov 12, 2019 Onc Med Follow-up/Prog Note Chief Complaint: Lung cancer. History of Present Illness: This is a 74 year-old woman with small cell lung cancer, TNM stage IIIA (T4, N1, M0) by clinical evaluation. 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 She completed radiation in January 2003. She had only brief adjuvant hormonal therapy, stopped at 6 months due to side effects. She has had no evidence of recurrence. She had presented to Dr. Brown with shortness of breath. Her pulmonary function studies in March 2019 showed normal spirometry with severely reduced diffusion capacity. She was referred to Dr. Basilio. Chest CT on on 06/11/2019 showed moderate centrilobular and paraseptal emphysema. There were several noncalcified pleural-based nodules, the most significant in the right upper lobe measuring 10 mm. The findings were suspicious for neoplasm. There was no mediastinal or hilar adenopathy noted. Further evaluation with PET/CT on 06/28/2019 showed a 1.2 cm subpleural nodule in the right upper lobe with SUV 9.8, consistent with a primary lung carcinoma. A 2 cm right upper lobe hilar node had SUV 10.9, consistent with local metastatic disease. An FDG positive pleural-based plaque in the lateral right middle lobe had SUV 8.2, consistent with metastatic disease. On 07/11/2019 she underwent bronchoscopy with EBUS and FNA biopsy of the right hilar lymph node. There was no endobronchial lesion identified and the bronchial washings were nondiagnostic. The FNA biopsy showed numerous cohesive groups of malignant cells with high N/C ratios and neuroendocrine type chromatin, ultimately confirmed to be consistent with small cell carcinoma. I had seen her initially on 07/29/2019. With 2 isolated lung lesions and right hilar node involvement, I was unsure if she was appropriate for concurrent chemoradiation. I opted to have her start chemotherapy with cisplatin/etoposide pending consultation with the radiation oncologist. Ultimately, it was recommended that she proceed with combined therapy beginning with cycle 2 of chemotherapy. Her staging brain MRI on 08/06/2019 showed no evidence of metastatic disease. Her other medical illnesses, in addition to the breast cancer, include COPD, hypertension, hyperlipidemia, peripheral arterial disease, degenerative disease of the spine, and osteoporosis. She has a history of hepatitis. She has a history of smoking 1/2 pack of cigarettes daily for 50 years. She has cut down to 2 or 3 cigarettes/day. INTERIM HISTORY: She began cycle 1 of cisplatin/etoposide chemotherapy on 08/11/2019. She tolerated it without acute toxicity. At day 15 she was severely neutropenic, ANC 400. She was not febrile, and she recovered following treatment with Neupogen. She continued with cycle 2 on 09/01/2019 with the dosages reduced by 10%. At that time she also began concurrent radiation. She continued to have significant fatigue with the treatment, but she otherwise tolerated it pretty well. She continued with cycle 3 of cisplatin/etoposide on 09/24/2019. She completed radiation on 10/10/2019 to a total dose of 6000 cGy. She then continued with her 4th cycle of chemotherapy on 10/15/2019. Restaging chest CT on 11/10/2019 showed improvement in the subpleural right upper lobe nodule measuring 6 mm compared to 9 to 10 mm on the previous studies. The small right middle lobe lesion had resolved. The right hilar lymph node had decreased to 7 mm compared to 2.0 cm. There was no mediastinal adenopathy noted. She is seen for a scheduled visit. She complains that her energy is down quite a bit, but she is able to do some light work. ECOG score is 1. Her appetite has been okay. She has lost a little weight. She does not have fever or night sweats. She occasionally feels a little obstruction in her esophagus. She has some shortness of breath. She has just occasional cough. She does not complain of chest pain. She sometimes does notice that her heart is pounding. She still frequently has nausea in the mornings, and she occasionally has vomiting. She has been having acid reflux symptoms, and she recently restarted her Protonix. Bowel function has been okay. She has been having a little more difficulty voiding. She has no significant joint or bone pain. She sometimes has a little headache in the mornings. She has had some orthostatic lightheadedness. She has no focal neurologic symptoms. Medications: amLODIPine Besylate 1 Tablet (of 10 mg) Oral daily, Aspirin 1 Tablet (of 325 mg) Oral daily, Protonix 1 Tablet (of 40 mg) Tablet, enteric coated Oral daily, Sertraline HCl 1 Tablet (of 100 mg) Oral daily, Simvastatin 1 Tablet (of 10 mg) Oral daily, Stiolto Respimat Aerosol, solution Inhalation, Toprol XL 2 Tablet (of 50 mg) Tablet SR 24 HR Oral daily, traMADol HCl 2 Tablet (of 50 mg) Oral daily Allergies: DULoxetine HCl and FLUoxetine HCl. Review of Systems: Constitutional - Her energy is down, but she is able to do some light housework. Her appetite is good and weight is stable. No fever, night sweats, or hot flashes. ECOG score is 1, ENMT - No sinus congestion/drainage. No mouth sores. No sore throat. She does get an occasional restricted feeling in her throat, Hematologic/Lymphatic - She bruises easily, Respiratory - She gets short of breath with exertion. She has an occasional cough. No pleuritic pain or hemoptysis, Cardiovascular - No angina pain. No palpitations, Gastrointestinal - She has frequent nausea, this occurs nearly ever day in the morning. No vomiting. She started having heartburn again and restarted her Protonix. This is working well. No diarrhea or constipation. She feels like her bowels don't move as often as before. No blood in the stool or black stools, Genitourinary (F) - She has been having a little more trouble voiding. No dysuria or hematuria. No urinary frequency. No urgency or incontinence, Musculoskeletal - No joint or bone pain, Integumentary - No skin complications, Neurologic - No headache or dizziness. No numbness or tingling. No other focal neurologic symptoms, Psychiatric - No anxiety. She has mild depression. No insomnia. Vital Signs: Performed on Nov 12, 2019 10:19 Height - 65.00 in Weight - 143.2 lbs (HIGH) BSA - 1.72 sq.m BMI - 23.83 Temperature - 98.1 F (LOW) Pulse - 69 /min Respiration - 18 /min BP - 150/82 mm(hg) (HIGH) O2 Sat - 96 % Pain - 0 Physical Examination: Constitutional - She looks pretty good generally, Eyes - Sclerae nonicteric. Conjunctivae clear, ENMT - No lesions noted in the oral cavity, Hematologic/Lymphatic - No cervical, clavicular, or axillary adenopathy, Respiratory - Lungs sound clear with some decrease in air movement bilaterally, Cardiovascular - Heart rhythm is regular. There is a II/ systolic murmur. There is no gallop or rub noted, Abdomen - Soft. Liver and spleen are not enlarged. There is no abdominal mass or ascites noted and there is no inguinal adenopathy, Extremities - No edema, Neurologic - No focal neurologic deficits noted. Lab/Imaging: Test performed on Nov 12, 2019 09:13 Sodium 138 mmol/L Potassium 4.3 mmol/L Chloride 103 mmol/L CO2 24 mmol/L Anion Gap 15.3 BUN 19 mg/dL Creatinine 1.0 mg/dL Cr Clearance (Est) 53.0200 mL/min Glucose 98 mg/dL Calcium 9.6 mg/dL Protein, Total 6.2 g/dL Albumin 4.2 g/dL Globulin 2.0 g/dL Bilirubin, Total 0.3 mg/dL ALT (SGPT) 10 U/L AST (SGOT) 14 U/L Alkaline Phosphatase 75 IU/L WBC 7.6 10 3/uL RBC 3.17 10 6/uL HGB 10.3 g/dL HCT 32.8 % MCV 103.5 fL MCH 32.5 pg MCHC 31.4 g/dL RDW 19.3 % Platelet Count 261 10 3/cmm MPV 8.6 fL Neutrophils 5.8 10 3/uL Lymphocytes 0.6 10 3/uL Monocytes 1.0 10 3/uL Eosinophils 0.1 10 3/uL Basophils 0.0 10 3/uL Neutrophil % 76.3 % Lymphocyte % 8.4 % Monocyte % 12.6 % Eosinophil % 0.8 % Basophils % 0.5 % NRBC % 0 % Impression: 1. Patient with small cell lung cancer of the right lung, TNM stage IIIA (T4, N1, M0) by clinical evaluation. 2. She underwent bronchoscopy with EBUS and biopsy of right hilar lymph node on 07/11/2019. 3. 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 There has been no evidence of recurrence. Her other medical illnesses include: 4. COPD. 5. Hypertension. 6. Hyperlipidemia. 7. Peripheral arterial disease. 8. Degenerative arthritis/degenerative disease of the spine. 9. Osteoporosis. 10. History of hepatitis. With disease by PET/CT limited to 2 focal sites of involvement in the right lung and in 1 hilar lymph node, she was advised to undergo combined chemoradiation. On 08/11/2019 she began cycle 1 of cisplatin/etoposide chemotherapy, with plan to begin concurrent chemoradiation at cycle 2. She had pretty severe fatigue following that treatment, but lasting only several days. She was severely neutropenic at day 15. She recovered after treatment with Neupogen, but it did cause significant bone pain. She continued with cycle 2 on 09/01/2019 with the dosages reduced by 10%. At that time she also began concurrent radiation. She continued to have fatigue with the treatment, she otherwise tolerated it well. She continued with cycle 3 of cisplatin/etoposide on 09/24/2019 and with cycle 4 on 10/15/2019. She completed radiation on 10/10/2019 to a total dose of 6000 cGy. At this point she continues to have significant fatigue, and she also is having some shortness of breath. She does appear to have had a very good response to the treatment, though with residual 6 mm pleural-based right upper lobe nodule. Plan: She will now be followed on observation/expectant management. She will be scheduled for a follow-up visit in 3 months. She will have restaging chest CT and head MRI prior to that visit. Signed By: Cedric Arango M.D. <<Signature on File>>
== END 2019-11-18 23:59 | disposition home or self-care (01) ==
LOC: ONCMED 06:51
PROVIDERS: PCP Family Medicine; Visit Provider Internal Medicine Medical Oncology
DX: C34.11 Malignant neoplasm of upper lobe, right bronchus or lung (principal); M47.9 Spondylosis, unspecified; E78.5 Hyperlipidemia, unspecified; I10 Essential (primary) hypertension; M81.0 Age-related osteoporosis without current pathological fracture; I73.9 Peripheral vascular disease, unspecified; Z86.73 Personal history of transient ischemic attack (TIA), and cerebral infarction without residual deficits; Z79.899 Other long term (current) drug therapy
CPT/HCPCS: 36591; 80053; 85025; 99214

== ENCOUNTER 2019-11-13 11:00 | Outpatient (CLI) | payer MEDICARE, SELFPAY | END 2019-11-13 11:01 | disposition home or self-care (01) | LOC: SLEEP 11-18 11:43 | PROVIDERS: PCP Family Medicine; Visit Provider Internal Medicine Critical Care Medicine | DX: J43.9 Emphysema, unspecified (principal) | CPT/HCPCS: 94762 ==

== ENCOUNTER 2019-12-11 06:54 | Outpatient (RCR) | payer MEDICARE, SELFPAY | END 2019-12-19 23:59 | disposition home or self-care (01) | LOC: ONCMED 06:54 | PROVIDERS: PCP Family Medicine; Visit Provider Internal Medicine Medical Oncology | DX: Z45.2 Encounter for adjustment and management of vascular access device (principal) | CPT/HCPCS: 96523 ==

== ENCOUNTER 2020-01-13 11:36 | Outpatient (RCR) | payer MEDICARE, SELFPAY | END 2020-01-19 23:59 | disposition home or self-care (01) | LOC: ONCMED 11:36 | PROVIDERS: PCP Family Medicine; Visit Provider Internal Medicine Medical Oncology | DX: Z45.2 Encounter for adjustment and management of vascular access device (principal) | CPT/HCPCS: 96523 ==

== ENCOUNTER 2020-02-12 06:19 | Outpatient (RCR) | payer MEDICARE, SELFPAY ==
--- NOTE | 2020-02-10 | CT_ITS ---
WS: [id number] CT CHEST WITH INTRAVENOUS CONTRAST HISTORY: LUNG CANCER F/U TECHNIQUE: Contiguous 5 mm axial imaging performed on the thorax. Coronal and sagittal reformats are submitted. All CT scans at [facility] use at least one of these dose optimization techniq ues: automated exposure control; mA and/or kV adjustment per patient size (includes targeted exams wh ere dose is matched to clinical indication); or iterative reconstruction. CONTRAST: Visipaque 320; 95 mL IV. DLP: 558.23 mGycm COMPARISON: 11/10/2019 Lungs and central airway: Severe chronic emphysema. Numerous bulla and bleb disease. There is been a significant change in appearance of the lungs since the prior study. There is continued improvement o f the subpleural RIGHT upper lobe nodule. No residual nodule is evident. There is new increasing opac ifications throughout the RIGHT upper, middle and lower lobes since 11/09/2018. In the RIGHT middle lo be there is a subsolid nodule now measuring 2.9 x 2.2 x 1.5 cm which may be an area of curvilinear at electasis. Increasing consolidation in the superior segment RIGHT lower lobe with extension across th e fissure. There is additional continuing consolidation in the medial RIGHT lower lobe. Some of these changes are probably post therapeutic. No definite LEFT pulmonary nodules are identified. Pleura: Normal. No pleural effusion. Heart and pericardium: Normal size heart with no pericardial effusion. Mediastinum and damian: RIGHT hilar lymph node measures 9 mm. Additional subcentimeter bilateral hilar lymph nodes. Slight increase in the soft tissue surrounding the proximal RIGHT lower lobe pulmonary a rtery. Vessels: Moderate atherosclerosis aorta. Pulmonary artery size is normal. Chest wall and lower neck: Port-A-Cath projects over the LEFT upper thorax. Upper abdomen: Prior cholecystectomy. Incompletely visualized RIGHT renal cyst measuring 4.3 cm. No a drenal mass. No hepatic metastasis. Osseous structures: Increase in thoracic kyphosis. No osteoblastic or osteolytic bone disease. CT/CT chest w con* [id number] IMPRESSION: 1. Complete resolution subpleural RIGHT upper lobe nodule. 2. Progression of RIGHT multilobar subsolid opacifications since 11/10/2019. Ma y be pneumonitis or post therapeutic response to radiation and immunotherapy. C annot exclude underlying new metastatic sites. Short-term follow-up will be rec ommended. Follow-up chest CT with IV contrast in 3 months recommended. 3. No significant change in the RIGHT hilar lymph node now measuring 9 mm. The re are a few additional small subcentimeter mediastinal and hilar lymph nodes w hich are slightly more prominent but may be reactive. 4. No metastatic disease to the visualized liver or adrenal glands. 5. Severe emphysema.
--- NOTE | 2020-02-10 09:14 | MR_ITS ---
WS: [id number] MRI BRAIN WITH AND WITHOUT CONTRAST HISTORY: LUNG CANCER COMPARISON: 08/06/2019 TECHNIQUE: Multiplanar imaging performed through the brain with [id number] [id number] No acute infarcts are seen. Gloria-white matter differentiation is well preserved. Mild atrophy is stab le. Moderate amount of chronic microvascular ischemic changes in the supratentorial white matter. Add itional bilateral microvascular ischemic changes in the lei is also stable. No susceptibility artifacts or prior lacunar infarcts. Ventricles and extra-axial spaces are normal. Clivus and pituitary gland are normal. Visualized posterior fossa and brainstem are also normal. Postcontrast images are negative for masses or vascular malformations. Dural venous sinuses are normal. Paranasal sinuses: Opacification with peripheral enhancement in the LEFT sphenoid sinus. No improveme nt since the prior study. No air-fluid levels. Mastoid air cells: Normal. Calvarium and scalp: Normal. MR/MR head wo/w con [id number] IMPRESSION: 1. No metastatic disease to the brain. 2. Moderate chronic microvascular ischemic changes without progression. 3. LEFT sphenoid sinusitis.
[2020-02-10 09:53] LABS: Blood Urea Nitrogen 12 mg/dL (8-23)
[2020-02-10] MEDS: iohexol 300 mg/mL 100 mL Btl IV (10:49)
[2020-02-12 09:33] LABS: Basophils # 0.1 10^3/uL (0.0-0.1); Basophils % 0.7 %; Eosinophils # 0.4 10^3/uL (0.0-0.8); Eosinophils % 5.2 %; Hematocrit 38.8 % (37.0-47.0); Hemoglobin 12.1 g/dL (11.5-15.3); Lymphocytes # 1.5 10^3/uL (0.8-4.8); Mean Corpuscular HGB Conc 31.2 g/dL (30.0-36.0); Mean Corpuscular Hemoglobin 29.2 pg (28.0-34.0); Mean Corpuscular Volume 93.7 fL (81-99); Mean Platelet Volume 8.8 fL (7.4-10.4); Monocytes # 0.6 10^3/uL (0.2-0.9); Monocytes % 8.5 %; Neutrophils # 4.52 10^3/uL (1.8-7.7); Neutrophils % 64.2 %; Nucleated Red Blood Cells % 0 %; Platelet Count 266 10^3/cmm (130-400); Red Blood Count 4.14 10^6/uL (4.1-5.3); Red Cell Distribution Width 14.6 % (12.1-15.1); White Blood Count 7.1 10^3/uL (4.0-10.0)
[2020-02-12 09:46] LABS: Alanine Aminotransferase 12 U/L (0-33); Albumin Level 3.9 g/dL (3.5-5.2); Alkaline Phosphatase 70 IU/L (35-105); Aspartate Amino Transferase 17 U/L (0-32); Blood Urea Nitrogen 15 mg/dL (8-23); Calcium 8.9 mg/dL (8.5-10.5); Carbon Dioxide 23 mmol/L (22-29); Chloride 104 mmol/L (98-107); Globulin 2.6 g/dL (1.3-4.6); Glucose 107 mg/dL (65-115); Osmolality Calculated 287 mOsm/kg (285-295); Sodium 138 mmol/L (136-145); Total Bilirubin 0.3 mg/dL (0.15-1.2); Total Protein 6.5 g/dL (6.6-8.7)
--- NOTE | 2020-02-12 12:36 | ONC FU_ITS ---
Dr. Arango Patient Follow-Up Note Patient: Anneliese Garcia Unit #: [id number]: 1945 Dicatated By: Cedric Arango M.D.Date of Visit:Feb 12, 2020 Onc Med Follow-up/Prog Note Chief Complaint: Lung cancer. History of Present Illness: This is a 74 year-old woman with small cell lung cancer, TNM stage IIIA (T4, N1, M0) by clinical evaluation. 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 She completed radiation in January 2003. She had only brief adjuvant hormonal therapy, stopped at 6 months due to side effects. She has had no evidence of recurrence. She had presented to Dr. Brown with shortness of breath. Her pulmonary function studies in March 2019 showed normal spirometry with severely reduced diffusion capacity. She was referred to Dr. Basilio. Chest CT on on 06/11/2019 showed moderate centrilobular and paraseptal emphysema. There were several noncalcified pleural-based nodules, the most significant in the right upper lobe measuring 10 mm. The findings were suspicious for neoplasm. There was no mediastinal or hilar adenopathy noted. Further evaluation with PET/CT on 06/28/2019 showed a 1.2 cm subpleural nodule in the right upper lobe with SUV 9.8, consistent with a primary lung carcinoma. A 2 cm right upper lobe hilar node had SUV 10.9, consistent with local metastatic disease. An FDG positive pleural-based plaque in the lateral right middle lobe had SUV 8.2, consistent with metastatic disease. On 07/11/2019 she underwent bronchoscopy with EBUS and FNA biopsy of the right hilar lymph node. There was no endobronchial lesion identified and the bronchial washings were nondiagnostic. The FNA biopsy showed numerous cohesive groups of malignant cells with high N/C ratios and neuroendocrine type chromatin, ultimately confirmed to be consistent with small cell carcinoma. I had seen her initially on 07/29/2019. With 2 isolated lung lesions and right hilar node involvement, I was unsure if she was appropriate for concurrent chemoradiation. I opted to have her start chemotherapy with cisplatin/etoposide pending consultation with the radiation oncologist. Ultimately, it was recommended that she proceed with combined therapy beginning with cycle 2 of chemotherapy. Her staging brain MRI on 08/06/2019 showed no evidence of metastatic disease. She began cycle 1 of cisplatin/etoposide chemotherapy on 08/11/2019. She tolerated it without acute toxicity. At day 15 she was severely neutropenic, ANC 400. She was not febrile, and she recovered following treatment with Neupogen. She continued with cycle 2 on 09/01/2019 with the dosages reduced by 10%. At that time she also began concurrent radiation. She continued to have significant fatigue with the treatment, but she otherwise tolerated it pretty well. She continued with cycle 3 of cisplatin/etoposide on 09/24/2019. She completed radiation on 10/10/2019 to a total dose of 6000 cGy. She then continued with her 4th cycle of chemotherapy on 10/15/2019. Restaging chest CT on 11/10/2019 showed improvement in the subpleural right upper lobe nodule measuring 6 mm compared to 9 to 10 mm on the previous studies. The small right middle lobe lesion had resolved. The right hilar lymph node had decreased to 7 mm compared to 2.0 cm. There was no mediastinal adenopathy noted. With those findings she continued on observation/expectant management. Her other medical illnesses, in addition to the breast cancer, include COPD, hypertension, hyperlipidemia, peripheral arterial disease, degenerative disease of the spine, and osteoporosis. She has a history of hepatitis. She has a history of smoking 1/2 pack of cigarettes daily for 50 years. She has cut down to 2 or 3 cigarettes/day. INTERIM HISTORY: Repeat chest CT on 02/10/2020 showed complete resolution of subpleural right upper lobe nodule but with progression of right multilobar sub-solid opacifications compared to the October 2019 study. The reported differential included pneumonitis, post therapeutic response to radiation, or new metastatic disease. There was no significant change in the right hilar lymph node measuring 9 mm. Additional subcentimeter mediastinal and hilar lymph nodes appeared slightly more prominent. There was severe underlying emphysema. There was no evidence of other metastatic disease. Her repeat brain MRI showed no evidence of metastatic disease. She is seen for a scheduled visit. She has been feeling pretty good generally, though she does feel worn out by the end of the day. She also complains that her back has been killing her. It is not a new problem, but it does seem to be getting worse. She has pain in the lower back area and she also has some pain in the mid back when she is on her feet a lot. There is also pain in the upper back/shoulder blade area which feels like muscle tension. The pain is also limiting her activity. Her ECOG score is 1. She has good appetite, but her weight is down about 10 pounds. She has not had fever. She occasionally feels sweaty. She occasionally has epistaxis, attributable to dryness. She has shortness of breath with exertion. She has occasional nonproductive cough. She feels tightness in her chest with deep breathing. She has a little bit of nausea. She has some heartburn, which is managed adequately with antacid. Bowel and bladder function have been okay. She has no other joint or bone pain. She does not complain of headache. She sometimes has dizziness. She occasionally has numbness/tingling. Medications: Aspirin 1 Tablet (of 325 mg) Oral daily, Protonix 1 Tablet (of 40 mg) Tablet, enteric coated Oral daily, Sertraline HCl 1 Tablet (of 100 mg) Oral daily, Simvastatin 1 Tablet (of 10 mg) Oral daily, Stiolto Respimat Aerosol, solution Inhalation, Toprol XL 2 Tablet (of 50 mg) Tablet SR 24 HR Oral daily, traMADol HCl (50 mg) Tablet Oral Take as Directed Allergies: DULoxetine HCl and FLUoxetine HCl. Review of Systems: Constitutional - Her energy is pretty good, but she is worn out by the end of the day. 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 Her appetite is good but her weight is down 9 pounds from last visit. No fevers. She has occasional sweating episodes. No hot flashes. ECOG score is 1, ENMT - She has some sinus congestion/drainage. She has had occasional nosebleeds. No mouth sores. Her throat feels dry. No difficulty swallowing, Hematologic/Lymphatic - No abnormal bruising, Respiratory - She gets short of breath with exertion. She has an occasional cough. No hemoptysis. She has tightness in her chest with inspiration, Cardiovascular - No angina pain. No palpitations, Gastrointestinal - No nausea or vomiting. She has occasional heartburn. No diarrhea or constipation. No blood in the stool or black stools, Genitourinary (F) - No dysuria or hematuria. No urinary frequency. No urgency or incontinence, Musculoskeletal - She is having increased pain in her lower back. She is also having some muscle pain in her left shoulder, Integumentary - No skin complications, Neurologic - No headache or dizziness. She has occasional numbness and tingling in her hands and feet. No other focal neurologic symptoms, Psychiatric - She feels like the sertraline is helping with her anxiety and depression. No insomnia. Vital Signs: Performed on Feb 12, 2020 10:12 Height - 65.00 in Weight - 134.8 lbs (LOW) BSA - 1.67 sq.m BMI - 22.43 Temperature - 97.3 F (LOW) Pulse - 68 /min Respiration - 16 /min BP - 99/58 mm(hg) O2 Sat - 93 % (LOW) Pain - 0 Physical Examination: Constitutional - She looks pretty good generally, Eyes - Sclerae nonicteric. Conjunctivae clear, ENMT - No lesions noted in the oral cavity, Hematologic/Lymphatic - No cervical, clavicular, or axillary adenopathy, Respiratory - Lungs sound clear with some decrease in air movement bilaterally, Cardiovascular - Heart rhythm is regular. There is no murmur, gallop, or rub noted, Abdomen - Soft. Liver and spleen are not enlarged. There is no abdominal mass or ascites noted and there is no inguinal adenopathy, Extremities - Slight pedal edema on the left, Neurologic - No focal neurologic deficits noted. Lab/Imaging: Test performed on Feb 12, 2020 08:55 Sodium 138 mmol/L Potassium 4.0 mmol/L Chloride 104 mmol/L CO2 23 mmol/L Anion Gap 15.0 BUN 15 mg/dL Creatinine 1.0 mg/dL Cr Clearance (Est) 53.0200 mL/min Glucose 107 mg/dL Osmolality - Calculated 287 mOsm/kg Calcium 8.9 mg/dL Protein, Total 6.5 g/dL Albumin 3.9 g/dL Globulin 2.6 g/dL Bilirubin, Total 0.3 mg/dL ALT (SGPT) 12 U/L AST (SGOT) 17 U/L Alkaline Phosphatase 70 IU/L WBC 7.1 10 3/uL RBC 4.14 10 6/uL HGB 12.1 g/dL HCT 38.8 % MCV 93.7 fL MCH 29.2 pg MCHC 31.2 g/dL RDW 14.6 % Platelet Count 266 10 3/cmm MPV 8.8 fL Neutrophils 4.52 10 3/uL Lymphocytes 1.5 10 3/uL Monocytes 0.6 10 3/uL Eosinophils 0.4 10 3/uL Basophils 0.1 10 3/uL Neutrophil % 64.2 % Lymphocyte % 21.0 % Monocyte % 8.5 % Eosinophil % 5.2 % Basophils % 0.7 % NRBC % 0 % Impression: 1. Patient with small cell lung cancer of the right lung, TNM stage IIIA (T4, N1, M0) by clinical evaluation. 2. She underwent bronchoscopy with EBUS and biopsy of right hilar lymph node on 07/11/2019. 3. 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 There has been no evidence of recurrence. Her other medical illnesses include: 4. COPD. 5. Hypertension. 6. Hyperlipidemia. 7. Peripheral arterial disease. 8. Degenerative arthritis/degenerative disease of the spine. 9. Osteoporosis. 10. History of hepatitis. With disease by PET/CT limited to 2 focal sites of involvement in the right lung and in 1 hilar lymph node, she was advised to undergo combined chemoradiation. On 08/11/2019 she began cycle 1 of cisplatin/etoposide chemotherapy, with plan to begin concurrent chemoradiation at cycle 2. She had pretty severe fatigue following that treatment, but lasting only several days. She was severely neutropenic at day 15. She recovered after treatment with Neupogen, but it did cause significant bone pain. She continued with cycle 2 on 09/01/2019 with the dosages reduced by 10%. At that time she also began concurrent radiation. She continued to have fatigue with the treatment, she otherwise tolerated it well. She continued with cycle 3 of cisplatin/etoposide on 09/24/2019 and with cycle 4 on 10/15/2019. She completed radiation on 10/10/2019 to a total dose of 6000 cGy. he does appear to have had a very good response to the treatment, though with residual 6 mm pleural-based right upper lobe nodule. She appeared to have a very good response to treatment based on her restaging chest CT in October 2019. At that point she was still having significant fatigue. She continued on observation/expectant management. She has since then been feeling somewhat better generally, though she is having significant back pain. It does limit her activity. There have been progressive changes in the right lung on her repeat chest CT, significance of which is uncertain. There is otherwise no evidence metastatic disease by CT or by head MRI. Plan: I will review the CT scan with the radiologist and with Dr. Basilio and we will determine whether to proceed with further evaluation or just follow expectantly with repeat CT scan in 3 months. In the meantime, with her blood pressure relatively low, she is advised to stop the amlodipine. Her medications otherwise remain the same. Signed By: Cedric Arango M.D. <<Signature on File>>
== END 2020-02-18 23:59 | disposition home or self-care (01) ==
LOC: ONCMED 06:19
PROVIDERS: PCP Family Medicine; Visit Provider Internal Medicine Medical Oncology
DX: C34.11 Malignant neoplasm of upper lobe, right bronchus or lung (principal); J44.9 Chronic obstructive pulmonary disease, unspecified; I10 Essential (primary) hypertension; E78.5 Hyperlipidemia, unspecified; I73.9 Peripheral vascular disease, unspecified; M47.9 Spondylosis, unspecified; M81.0 Age-related osteoporosis without current pathological fracture; Z86.19 Personal history of other infectious and parasitic diseases; Z92.21 Personal history of antineoplastic chemotherapy
CPT/HCPCS: 36591; 70553; 71260; 80053; 82565; 84520; 85025; 99214; A9579; Q9967

== ENCOUNTER 2020-04-09 09:00 | Outpatient (CLI) | payer MEDICARE, SELFPAY | END 2020-04-09 09:01 | disposition home or self-care (01) | LOC: ONCMED 04-12 10:25 | PROVIDERS: PCP Family Medicine; Visit Provider Internal Medicine Medical Oncology | DX: Z45.2 Encounter for adjustment and management of vascular access device (principal) | CPT/HCPCS: 96523 ==

== ENCOUNTER 2020-04-21 12:12 | Outpatient (CLI) | payer MEDICARE, SELFPAY ==
--- NOTE | 2020-04-21 12:20 | MM_ITS ---
WS: [id number] BILATERAL DIGITAL DIAGNOSTIC MAMMOGRAM MAMMOGRAPHY WITH CAD CLINICAL INFORMATION: HX OF BREAST CA COMPARISON: TECHNIQUE: Bilateral CC, MLO, and ML views. FINDINGS: The breasts are composed of heterogeneous fibroglandular density, which can limit the detection of sm all underlying mass lesions. Punctate and lucent centered calcifications. No suspicious focal mass, asymmetry, calcifications, or architectural distortion. No evidence of justin gnancy. MM/[place] [id number] IMPRESSION: BI-RADS: 2-Benign FOLLOW UP: 1 Year Follow-up Recommend return to annual diagnostic mammography.
== END 2020-04-21 12:13 | disposition home or self-care (01) ==
LOC: RADSHAW 12:14
PROVIDERS: PCP Family Medicine; Visit Provider Family Medicine
DX: Z85.3 Personal history of malignant neoplasm of breast (principal)
CPT/HCPCS: 77066

== ENCOUNTER 2020-05-24 11:03 | Outpatient (CLI) | payer MEDICARE, SELFPAY ==
[2020-05-24 12:20] LABS: Basophils # 0.1 10^3/uL (0.0-0.1); Basophils % 0.7 %; Eosinophils # 0.3 10^3/uL (0.0-0.8); Eosinophils % 3.8 %; Hematocrit 42.5 % (37.0-47.0); Hemoglobin 13.2 g/dL (11.5-15.3); Lymphocytes # 1.9 10^3/uL (0.8-4.8); Lymphocytes % 20.7 %; Mean Corpuscular HGB Conc 31.1 g/dL (30.0-36.0); Mean Corpuscular Hemoglobin 27.9 pg (28.0-34.0); Mean Corpuscular Volume 89.9 fL (81-99); Mean Platelet Volume 8.5 fL (7.4-10.4); Monocytes # 0.6 10^3/uL (0.2-0.9); Monocytes % 6.5 %; Neutrophils # 6.16 10^3/uL (1.8-7.7); Nucleated Red Blood Cells % 0 %; Platelet Count 271 10^3/cmm (130-400); Red Blood Count 4.73 10^6/uL (4.1-5.3); Red Cell Distribution Width 16.1 % (12.1-15.1); White Blood Count 9.1 10^3/uL (4.0-10.0)
--- NOTE | 2020-05-24 12:31 | CT_ITS ---
WS: [id number] CT CHEST TECHNIQUE: Contrast enhanced CT of the chest with coronal and sagittal reformatted images. CLINICAL INFORMATION: LUNG CANCER COMPARISON: CT 02/10/2020 and 11/10/2019 DLP: 552.[address] scans at [facility] use at least one of these dose optimization techniques: automat ed exposure control; mA and/or kV adjustment per patient size (includes targeted exams where dose is matched to clinical indication); or iterative reconstruction. FINDINGS: Chest wall/pleural nodule right lower lobe anteriorly adjacent to the sixth rib anteriorly is new from previous measuring 8 mm. This is suspicious for metastatic disease. Otherwise no evidence of progression. Advanced chronic emphysematous changes with bulla formation. Scattered fibrosis and subsegmental atel ectasis in both lungs is unchanged. Previously described right lower lobe airspace infiltrates have i mproved with a small amount of residual infiltrate. Otherwise stable interstitial thickening in the r ight upper lobe and right middle lobes likely due to treatment-related changes. Subpleural nodularity right upper lobe is unchanged. Previously described semisolid opacities right u pper lobe and right middle lobe have improved and less dense today. Stable slightly prominent hilar lymph nodes and mediastinal lymph nodes. No progressive lymphadenopat hy. Cholecystectomy clips. Adrenal glands are normal. Right renal cyst measuring 4.3 cm. Diffuse fatty in filtration liver. No axillary lymphadenopathy. CT/CT chest w con* [id number] IMPRESSION: 1. New soft tissue chest wall/pleural nodule in the right lower lobe anteriorl y adjacent to the sixth rib appears new from the prior examinations. This is toribio spicious for metastatic disease. This area measures approximately 8 mm. Conside r short interval follow-up in 3 months 2. Otherwise no evidence of disease progression. 3. Previously described semisolid opacities in the right middle lobe and right lower lobe have improved compared to previous and likely due to treatment-rela charles changes. 4. Right lower lobe airspace infiltrates posterior medially improved from prev ious. 5. Subpleural nodularity in the right upper lobe is unchanged. 6. No progressed mediastinal or hilar lymphadenopathy. A few slightly prominen t lymph nodes are unchanged.
[2020-05-24 13:04] LABS: Alanine Aminotransferase 11 U/L (0-33); Albumin Level 3.5 g/dL (3.5-5.2); Alkaline Phosphatase 80 IU/L (35-105); Anion Gap 15.6 (5-19); Aspartate Amino Transferase 15 U/L (0-32); Blood Urea Nitrogen 17 mg/dL (8-23); Carbon Dioxide 23 mmol/L (22-29); Chloride 104 mmol/L (98-107); Glucose 90 mg/dL (65-115); Osmolality Calculated 287 mOsm/kg (285-295); Potassium 4.6 mmol/L (3.5-5.1); Sodium 138 mmol/L (136-145); Total Bilirubin 0.4 mg/dL (0.15-1.2); Total Protein 6.5 g/dL (6.6-8.7)
[2020-05-24] MEDS: iohexol 300 mg/mL 100 mL Btl IV (13:13)
== END 2020-05-24 11:04 | disposition home or self-care (01) ==
PROVIDERS: PCP Family Medicine; Visit Provider Internal Medicine Medical Oncology
DX: C34.11 Malignant neoplasm of upper lobe, right bronchus or lung (principal)
CPT/HCPCS: 36591; 71260; 80053; 85025; Q9967

== ENCOUNTER 2020-05-27 05:56 | Outpatient (CLI) | payer MEDICARE, SELFPAY ==
--- NOTE | 2020-05-30 12:01 | ONC FU_ITS ---
Dr. Arango Patient Follow-Up Note Patient: Anneliese Garcia Unit #: [id number]: 1945 Dicatated By: Cedric Arango M.D.Date of Visit:May 27, 2020 Onc Med Follow-up/Prog Note Chief Complaint: Lung cancer. History of Present Illness: This is a 74 year-old woman with small cell lung cancer, TNM stage IIIA (T4, N1, M0) by clinical evaluation. 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 She completed radiation in January 2003. She had only brief adjuvant hormonal therapy, stopped at 6 months due to side effects. She has had no evidence of recurrence. She had presented to Dr. Brown with shortness of breath. Her pulmonary function studies in March 2019 showed normal spirometry with severely reduced diffusion capacity. She was referred to Dr. Basilio. Chest CT on on 06/11/2019 showed moderate centrilobular and paraseptal emphysema. There were several noncalcified pleural-based nodules, the most significant in the right upper lobe measuring 10 mm. The findings were suspicious for neoplasm. There was no mediastinal or hilar adenopathy noted. Further evaluation with PET/CT on 06/28/2019 showed a 1.2 cm subpleural nodule in the right upper lobe with SUV 9.8, consistent with a primary lung carcinoma. A 2 cm right upper lobe hilar node had SUV 10.9, consistent with local metastatic disease. An FDG positive pleural-based plaque in the lateral right middle lobe had SUV 8.2, consistent with metastatic disease. On 07/11/2019 she underwent bronchoscopy with EBUS and FNA biopsy of the right hilar lymph node. There was no endobronchial lesion identified and the bronchial washings were nondiagnostic. The FNA biopsy showed numerous cohesive groups of malignant cells with high N/C ratios and neuroendocrine type chromatin, ultimately confirmed to be consistent with small cell carcinoma. I had seen her initially on 07/29/2019. With 2 isolated lung lesions and right hilar node involvement, I was unsure if she was appropriate for concurrent chemoradiation. I opted to have her start chemotherapy with cisplatin/etoposide pending consultation with the radiation oncologist. Ultimately, it was recommended that she proceed with combined therapy beginning with cycle 2 of chemotherapy. Her staging brain MRI on 08/06/2019 showed no evidence of metastatic disease. She began cycle 1 of cisplatin/etoposide chemotherapy on 08/11/2019. She tolerated it without acute toxicity. At day 15 she was severely neutropenic, ANC 400. She was not febrile, and she recovered following treatment with Neupogen. She continued with cycle 2 on 09/01/2019 with the dosages reduced by 10%. At that time she also began concurrent radiation. She continued to have significant fatigue with the treatment, but she otherwise tolerated it pretty well. She continued with cycle 3 of cisplatin/etoposide on 09/24/2019. She completed radiation on 10/10/2019 to a total dose of 6000 cGy. She then continued with her 4th cycle of chemotherapy on 10/15/2019. Restaging chest CT on 11/10/2019 showed improvement in the subpleural right upper lobe nodule measuring 6 mm compared to 9 to 10 mm on the previous studies. The small right middle lobe lesion had resolved. The right hilar lymph node had decreased to 7 mm compared to 2.0 cm. There was no mediastinal adenopathy noted. With those findings I opted to follow her on observation/expectant management. Her other medical illnesses, in addition to the breast cancer, include COPD, hypertension, hyperlipidemia, peripheral arterial disease, degenerative disease of the spine, and osteoporosis. She has a history of hepatitis. She has a history of smoking 1/2 pack of cigarettes daily for 50 years. She has cut down to 2 or 3 cigarettes/day. INTERIM HISTORY: Her chest CT on 02/10/2020 showed complete resolution of subpleural right upper lobe nodule but with progression of right multilobar sub-solid opacifications compared to the October 2019 study. The reported differential included pneumonitis, post therapeutic response to radiation, or new metastatic disease. There was no significant change in the right hilar lymph node measuring 9 mm. Additional subcentimeter mediastinal and hilar lymph nodes appeared slightly more prominent. There was severe underlying emphysema. There was no evidence of other metastatic disease. Her repeat brain MRI showed no evidence of metastatic disease. Given those findings, she continued on observation/expectant management. Repeat chest CT on 05/24/2020 reported semisolid opacities in the right middle lobe and right lower lobe which were noted to have improved compared to the prior study in January. These appear to be most likely treatment related. Right lower lobe airspace infiltrates also were noted to have improved. A subpleural nodularity in the right upper lobe appeared unchanged and there was no progressed mediastinal or hilar lymphadenopathy. A new soft tissue chest wall/pleural nodule was noted in the right lower lobe anteriorly adjacent to the sixth rib. It measured 8 mm and the appearance was suspicious for metastatic disease. She is seen for a scheduled visit. She has been feeling pretty good generally. She does have some fatigue, but she is doing light work. ECOG score is 1. Appetite has been pretty good. She has lost weight. She does not have fever or night sweats. She has some shortness of breath, but she has just occasional cough. She does not complain of chest pain. She has a little bit of acid reflux. She has no other GI complaints. She reports some hesitancy with urination, but bladder function remains adequate. She has no significant joint or bone pain. She tends to have headache when she wakes up in the morning, and she sometimes has dizziness. She has no focal neurologic symptoms. Medications: Aspirin 1 Tablet (of 325 mg) Oral daily, Protonix 1 Tablet (of 40 mg) Tablet, enteric coated Oral daily, Sertraline HCl 1 Tablet (of 100 mg) Oral daily, Simvastatin 1 Tablet (of 10 mg) Oral daily, Stiolto Respimat Aerosol, solution Inhalation, Toprol XL 2 Tablet (of 50 mg) Tablet SR 24 HR Oral daily, traMADol HCl (50 mg) Tablet Oral Take as Directed Allergies: DULoxetine HCl and FLUoxetine HCl. Vital Signs: Performed on May 27, 2020 09:41 Height - 65.00 in Weight - 124.8 lbs (LOW) BSA - 1.62 sq.m BMI - 20.77 Temperature - 97.0 F (LOW) Pulse - 62 /min Respiration - 16 /min BP - 134/86 mm(hg) O2 Sat - 96 % Pain - 0 Physical Examination: Constitutional - She looks pretty good generally, Eyes - Sclerae nonicteric. Conjunctivae clear, ENMT - No lesions noted in the oral cavity, Hematologic/Lymphatic - No cervical, clavicular, or axillary adenopathy, Respiratory - Lungs sound clear with dimninished air movement bilaterally, Cardiovascular - Heart rhythm is regular. There is no murmur, gallop, or rub noted, Abdomen - Soft. Liver and spleen are not enlarged. There is no abdominal mass or ascites noted and there is no inguinal adenopathy, Extremities - No edema, Neurologic - No focal neurologic deficits noted. Lab/Imaging: Test performed on May 24, 2020 12:05 Sodium 138 mmol/L Potassium 4.6 mmol/L Chloride 104 mmol/L CO2 23 mmol/L Anion Gap 15.6 BUN 17 mg/dL Creatinine 0.8 mg/dL Cr Clearance (Est) 66.2700 mL/min Glucose 90 mg/dL Osmolality - Calculated 287 mOsm/kg Calcium 9.0 mg/dL Protein, Total 6.5 g/dL Albumin 3.5 g/dL Globulin 3.0 g/dL Bilirubin, Total 0.4 mg/dL ALT (SGPT) 11 U/L AST (SGOT) 15 U/L Alkaline Phosphatase 80 IU/L WBC 9.1 10 3/uL RBC 4.73 10 6/uL HGB 13.2 g/dL HCT 42.5 % MCV 89.9 fL MCH 27.9 pg MCHC 31.1 g/dL RDW 16.1 % Platelet Count 271 10 3/cmm MPV 8.5 fL Neutrophils 6.16 10 3/uL Lymphocytes 1.9 10 3/uL Monocytes 0.6 10 3/uL Eosinophils 0.3 10 3/uL Basophils 0.1 10 3/uL Neutrophil % 68.0 % Lymphocyte % 20.7 % Monocyte % 6.5 % Eosinophil % 3.8 % Basophils % 0.7 % NRBC % 0 % Historic Problem List: 1. Small cell lung cancer of the right lung, TNM stage IIIA (T4, N1, M0) by clinical evaluation. She underwent bronchoscopy with EBUS and biopsy of right hilar lymph node on 07/11/2019. 2. Her treatment included 4 cycles of cisplatin/etoposide chemotherapy administered from July through September 2019. She was given radiation concurrently, beginning with cycle 2. Radiation was completed on 10/10/2019 to a total dose of 6000 cGy. 3. 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 There has been no evidence of recurrence. 4. COPD. 5. Hypertension. 6. Hyperlipidemia. 7. Peripheral arterial disease. 8. Degenerative arthritis/degenerative disease of the spine. 9. Osteoporosis. 10. History of hepatitis. Problems Addressed with this Encounter and Plan: 1. Small cell lung cancer of the right lung, TNM stage IIIA (T4, N1, M0) by clinical evaluation, initially diagnosed by bronchoscopy/EBUS in June 2019. Treatment included 4 cycles of cisplatin/etoposide chemotherapy administered from July through September 2019. She was given radiation concurrently, beginning with cycle 2. Radiation was completed on 10/10/2019 to a total dose of 6000 cGy. She tolerated the treatment well, and she appeared to have a good response by follow-up chest CT scan, though with development of significant treatment related opacities in the right middle and lower lobes. Her current CT scans continue to show significant opacities. I did review these independently with the patient, and there does appear to be some improvement compared to the January CT scan, but there are still very significant pulmonary parenchymal opacities in the right lung which are new compared to the pretreatment CT scan. These are presumed to be radiation related. The new subpleural nodule in the anterior right lower lobe will require close follow-up. In the absence of any other evidence of disease progression, I will just plan a follow-up visit with repeat CT scan in 3 months. She also will have surveillance MRI prior to that visit. 2. She has significant underlying COPD, which is stable on her current treatment. 3. Prior history of left breast cancer treated with lumpectomy/radiation in 2002. Thus far there has been no evidence of recurrence. She remains on observation/expectant management. Signed By: Cedric Arango M.D. <<Signature on File>>
== END 2020-05-27 05:57 | disposition home or self-care (01) ==
LOC: ONCMED 05:59
PROVIDERS: PCP Family Medicine; Visit Provider Internal Medicine Medical Oncology
DX: C34.11 Malignant neoplasm of upper lobe, right bronchus or lung (principal); C77.1 Secondary and unspecified malignant neoplasm of intrathoracic lymph nodes; J44.9 Chronic obstructive pulmonary disease, unspecified; Z85.3 Personal history of malignant neoplasm of breast; Z79.899 Other long term (current) drug therapy; Z92.3 Personal history of irradiation; I10 Essential (primary) hypertension; E78.5 Hyperlipidemia, unspecified; I73.9 Peripheral vascular disease, unspecified; M81.0 Age-related osteoporosis without current pathological fracture
CPT/HCPCS: 99214

== ENCOUNTER 2020-06-09 13:57 | Outpatient (CLI) | payer MEDICARE, SELFPAY ==
--- NOTE | 2020-06-09 14:01 | XR_ITS ---
WS: [id number] SCREENING DEXA SCAN [employer] CLINICAL INFORMATION: OSTEOPOROSIS, HYERLOPIDEMIA, HYPERTENSION, MEDICATION MONITE COMPARISON: None. FINDINGS: The L1-L4 bone mineral density measures 0.972 g/cm2. This corresponds to a T score score of -1.7 and Z score of 0.3. Left femoral neck bone mineral density measures 0.744 g/cm2. This corresponds to a T score of -2.1 an d Z score of -0.3. Right femoral neck bone mineral density measures 0.712 g/cm2. This corresponds to a T score -2.3of an d Z score of -0.5. Mean femoral neck bone mineral density measures 0.728 g/cm2. This corresponds to a T score of -2.2 an d Z score of -0.4. XR/XR DEXA axial skeleton* [id number] IMPRESSION: Osteopenia Patient's FRAX calculated 10 year probability for major osteoporotic fracture i s 17.7 % and osteoporotic hip fracture is 6.1%.
== END 2020-06-09 13:58 | disposition home or self-care (01) ==
LOC: RADWPI 14:00
PROVIDERS: PCP Family Medicine; Visit Provider Family Medicine
DX: M81.0 Age-related osteoporosis without current pathological fracture (principal); E78.5 Hyperlipidemia, unspecified; I10 Essential (primary) hypertension; M85.88 Other specified disorders of bone density and structure, other site
CPT/HCPCS: 77080

== ENCOUNTER 2020-07-28 10:39 | Outpatient (CLI) | payer MEDICARE, SELFPAY ==
--- NOTE | 2020-07-28 10:41 | MR_ITS ---
WS: [id number] MRI HEAD WITH CONTRAST TECHNIQUE: Sagittal T1, T2 axial, T2 axial FLAIR, axial susceptibility weighted imaging, axial diffus ion weighted images, and coronal T2 images were obtained. Pre and post-T1 axial and post T1 coronal i mages. ADC and FSPGR images. CLINICAL INFORMATION: SMALL CELL LUNG CA COMPARISON: MRI head 02/10/2020 and 08/06/2019 FINDINGS: 2 small foci of restricted diffusion involving the left frontal white matter and left parasagittal oc cipital lobe with T2 hyperintensity and enhancement. No other foci of restricted diffusion. Moderate small vessel changes moderate parenchymal volume loss. Small vessel changes in the lei. Normal poste rior fossa. Normal vascular flow voids at the skull base. No extra-axial fluid collections. No evidence of mass or mass effect. Left sphenoid sinusitis. No hemosiderin on susceptibly weighted i mages. Normal optic chiasm and pituitary infundibulum. Mild symmetric atrophy temporal lobes and elsa ocampal formations. Prominent arachnoid spaces overlying the cerebral convexities. This is unchanged. No other abnormal foci of enhancement. Normal dural venous sinuses. MR/MR head wo/w con [id number] IMPRESSION: 1. A few small foci of restricted diffusion in the left frontal white matter a nd left parasagittal occipital lobe with associated enhancement. Small amount o f associated edema with the left occipital lesion. Findings either due to small subacute infarcts versus metastatic disease. Recommend short interval follow-u p to assess progression in 4-6 weeks. 2. No other abnormal foci of enhancement. 3. Moderate small vessel changes with moderate parenchymal volume loss. Small vessel changes in the lei. 4. Sphenoid sinusitis. 5. No hemosiderin on susceptibly weighted images.
[2020-07-28 12:53] LABS: Blood Urea Nitrogen 17 mg/dL (8-23)
--- NOTE | 2020-07-28 14:03 | CT_ITS ---
WS: [id number] CT CHEST WITH INTRAVENOUS CONTRAST HISTORY: LUNG CANCER, MALIGNANT NEOPLASM OF UPPER LOBE, RIGHT LUNG TECHNIQUE: Contiguous 5 mm axial imaging performed on the thorax. Coronal and sagittal reformats are submitted. All CT scans at [facility] use at least one of these dose optimization techniq ues: automated exposure control; mA and/or kV adjustment per patient size (includes targeted exams wh ere dose is matched to clinical indication); or iterative reconstruction. CONTRAST: Visipaque 320; 95 mL IV. DLP: 518.68 mGycm COMPARISON: 05/24/2020 Lungs and central airway: Severe chronic emphysema. Advanced paraseptal emphysema with diffuse interl obular and septal thickening. The area of nodularity interstitial thickening in the posterior lateral RIGHT upper lobe described on the prior study may have improved slightly. There is no obvious progre ssion. Mild cylindrical bronchiectasis in the LEFT upper lobe with bronchial wall thickening. Additio nal marked interstitial thickening in the medial RIGHT lower lobe is probably all related to postradi ation treatment. Pleural-based nodule in the anterior RIGHT middle lobe described on the prior study now measures 14 mm in diameter which has increased in size. This nodule extends into the intercostal muscles. No obvious bone destruction. There is an additional subpleural nodular thickening in the pos terior RIGHT lower lobe adjacent to the ninth rib measuring 11 mm in diameter. Pleura: No pleural effusion. Heart and pericardium: Normal size heart with no pericardial effusion. Mediastinum and damian: No progression of the mediastinal and hilar lymph nodes. The largest lymph node measures 9 mm at the LEFT hilum. Vessels: Moderate atherosclerosis aorta. Pulmonary artery size is equal to the aorta. Chest wall and lower neck: Mediport enters through the LEFT subclavian with tip in the distal SVC. Upper abdomen: Prior cholecystectomy. RIGHT renal cyst is incompletely visualized. No adrenal mass. Osseous structures: No osteoblastic or osteolytic bone disease. CT/CT chest w con* [id number] IMPRESSION: 1. Slight increase in size of the pleural-based nodule in the anterior RIGHT m iddle lobe. Nodule now measures 14 mm as compared to 8 on the prior study. 2. Additional pleural-based nodule RIGHT lower lobe measures 11 mm with mild p rogression since the prior study. Pleural metastatic disease not excluded. 3. Otherwise advanced chronic emphysema and postradiation changes throughout t he RIGHT lung. 4. No increase in size of lymph nodes. Largest lymph node is 9 mm at the LEFT hilum.
[2020-07-28] MEDS: iodixanol 320 mg/mL 100mL Btl IV (14:49)
== END 2020-07-28 10:40 | disposition home or self-care (01) ==
LOC: RADSHAW 10:40 → ONCMED 11:11
PROVIDERS: PCP Family Medicine; Visit Provider Internal Medicine Medical Oncology
DX: C34.11 Malignant neoplasm of upper lobe, right bronchus or lung (principal); R91.1 Solitary pulmonary nodule; J43.9 Emphysema, unspecified
CPT/HCPCS: 70553; 71260; 82565; 84520; A9579; Q9967

== ENCOUNTER 2020-08-18 10:49 | Emergency (ER) | payer MEDICARE, SELFPAY ==
[2020-08-18 10:58] VITALS: BP 184/107; PULSE 71; RESP 16; TEMP 36.4; O2SAT 95; BMI 21.6
[2020-08-18 11:45] LABS: Basophils % 0.3 %; Eosinophils # 0.1 10^3/uL (0.0-0.8); Eosinophils % 0.6 %; Hematocrit 50.4 % (37.0-47.0); Hemoglobin 16.3 g/dL (11.5-15.3); Lymphocytes # 0.4 10^3/uL (0.8-4.8); Lymphocytes % 2.7 %; Mean Corpuscular HGB Conc 32.3 g/dL (30.0-36.0); Mean Corpuscular Hemoglobin 29.4 pg (28.0-34.0); Mean Corpuscular Volume 90.8 fL (81-99); Mean Platelet Volume 8.7 fL (7.4-10.4); Monocytes # 0.6 10^3/uL (0.2-0.9); Monocytes % 4.7 %; Neutrophils # 12.05 10^3/uL (1.8-7.7); Neutrophils % 91.2 %; Nucleated Red Blood Cells % 0 %; Platelet Count 275 10^3/cmm (130-400); Red Blood Count 5.55 10^6/uL (4.1-5.3); Red Cell Distribution Width 15.4 % (12.1-15.1); White Blood Count 13.2 10^3/uL (4.0-10.0)
[2020-08-18 11:58] LABS: Add Urine Microscopic? YES; Bilirubin Urine Neg (Negative); Blood Urine 3+ (Negative); Glucose Urine UA Norm (Normal); Ketones Urine Negative (Negative); Leukocyte Esterase Urine 1+ (Negative); Nitrate Urine Negative (Negative); Protein Urine Neg (Negative); Urine Appearance Clear (CLEAR); Urine Color Yellow (Yellow); Urobilinogen Urine Norm (Negative); pH Urine 5 (5-7)
[2020-08-18 12:05] LABS: Alanine Aminotransferase 13 U/L (0-33); Albumin Level 4.3 g/dL (3.5-5.2); Alkaline Phosphatase 83 IU/L (35-105); Anion Gap 17.2 (5-19); Aspartate Amino Transferase 16 U/L (0-32); Blood Urea Nitrogen 30 mg/dL (8-23); Calcium 9.5 mg/dL (8.5-10.5); Carbon Dioxide 23 mmol/L (22-29); Chloride 106 mmol/L (98-107); Globulin 3.4 g/dL (1.3-4.6); Glucose 115 mg/dL (65-115); Osmolality Calculated 301 mOsm/kg (285-295); Potassium 4.2 mmol/L (3.5-5.1); Sodium 142 mmol/L (136-145); Total Bilirubin 0.6 mg/dL (0.15-1.2); Total Protein 7.7 g/dL (6.6-8.7)
[2020-08-18 12:14] LABS: Add Urine Culture? No; Bacteria Urine 1+ /hpf; Mucus Urine 1+ /hpf
--- NOTE | 2020-08-18 12:15 | CT_ITS ---
WS: [id number] CT ABDOMEN AND PELVIS WITH CONTRAST HISTORY: Nausea and vomiting. Abdominal pain for one day. TECHNIQUE: Imaging performed of the abdomen and pelvis with IV contrast. Single phase imaging of the abdomen. Coronal and sagittal reformats are submitted. All CT scans at [facility] use at least one of these dose optimization techniques: automated exposure control; mA and/or kV adjustment per patient size (includes targeted exams where dose is matched to clinical indication); or iterativ e reconstruction. IV CONTRAST: Omnipaque 300; 95 mL IV. Oral contrast: No DLP: 974.39 mGy.cm COMPARISON: 07/28/2020 Lower thorax: Severe emphysematous changes at the lung bases. Pleural-based nodules in the RIGHT midd le and RIGHT lower lobe are reidentified without increase in size since 07/28/2020. Heart is normal si ze. Small hiatal hernia. Liver/biliary system: Normal size liver with mild bile duct dilatation. Gallbladder: Status post cholecystectomy. Pancreas: Normal. Spleen: Normal. Adrenal glands: Normal. Right kidney: Simple cyst from the mid kidney measures 3.7 x 4.1 x 4.2 cm. No obstruction or solid ma ss. Left kidney: Cortical hypodensities are too small to characterize. No obstruction. Aorta: Moderate atherosclerotic plaque with no aneurysm. Lymphadenopathy: None. Free fluid: None. GI tract: The appendix is not identified. No evidence for an acute inflammation or obstruction. Abdominal wall: Unremarkable abdominal wall. No hernia. Pelvis: Prior hysterectomy. No pelvic mass or fluid. Bones: Unremarkable. CT/CT abdomen pelvis w con* [id number] IMPRESSION: 1. No acute abdominal or pelvic abnormality is identified. Prior hysterectomy and cholecystectomy. 2. Again noted is a pleural-based nodules in the RIGHT middle and RIGHT lower lobe which are unchanged since 07/28/2020. 3. Severe emphysema at the lung bases.
--- NOTE | 2020-08-18 12:16 | ED_ITS ---
HPI - Nausea/Vomiting/Diarrhea General: Chief complaint: Nausea/Vomiting/Diarrhea Stated complaint: N/V/Diarrhea Time Seen by Provider: 08/18/20 11:25 History of Present Illness: HPI Narrative: 74-year-old female presents to the emergency room with complaints of nausea and vomiting. She has a history of her previous breast cancer which was treated lumpectomy and radiation in the early 1999'. More recently she was found to have breast CA she has undergone chemo and radiation. She is following up with Dr. Arango. According to his last note is she is on surveillance at this point. She was last seen in early May and advised for a 3-month follow-up which would be coming up shortly. He denies any hematochezia melena hematemesis or coffee-ground emesis today. She states she stopped vomiting now she still has some mild nausea but she feels like there is nothing left to vomit up. MD elicited complaint: vomiting Onset (ago): hour(s) Description of vomiting: food contents and watery Associated nausea: Yes Associated abdominal pain: Yes (mild) Location of pain: Diffuse Pain consistency: intermittent Severity: moderate Quality: cramping Exacerbating factors: vomiting Relieving factors: none Context: other (History of lung cancer) Associated symtoms: Reports anorexia and nausea; Denies anxiety, bloating, change in vision, chest pain, cough, diaphoresis, decreased urine output, dizziness, dysuria, epistaxis, fatigue, fecal inconti nence, fevers/chills, headache(s), malaise, myalgias, numbness, palpitations, rash, short of breath, syncope, tenesmus, tinnitus or weakness Review of Systems Const: Denies: fatigue, malaise or diaphoresis Eyes: Denies: change in vision ENMT: Denies: tinnitus or epistaxis Card: Denies: chest pain or palpitations GI: Reports: nausea; Denies: bloating or fecal incontinence : Denies: dysuria Neuro: Denies: headache(s) or dizziness Psych: Denies: anxiety PFSH ED PFSH: Medical History (Updated 08/18/20 @ 14:38 by Adolfo Barrett DO) Breast cancer Chronic back pain DDD (degenerative disc disease) Essential (primary) hypertension H/O one miscarriage Hepatitis Hyperlipidemia Osteoporosis PAD (peripheral artery disease) Tobacco use Wrist fracture Surgical History (Updated 09/22/19 @ 10:58 by Brayan Basilio MD) H/O dilation and curettage History of bronchoscopy History of cholecystectomy History of lumpectomy of left breast Hx of BSO (bilateral salpingo-oophorectomy) S/P insertion of iliac artery stent S/P right knee arthroscopy S/P MARTY (total abdominal hysterectomy) Family History Other Alzheimer disease Cancer Stroke Social History Smoking and tobacco status: current every day smoker cigarettes Years cigarettes smoked: 45 [ Other cigarette details: Hx of 0.5 PPD ] Alcohol intake: current Alcohol intake frequency: holidays/special occasions only Lives independently: Yes Household members: spouse Marital status: Current occupational status: retired History of recent travel: No Current gender identity: Female Physical Exam Const: COMMON NORMALS: no acute distress GENERAL APPEARANCE: cooperative and comfortable ORIENTATION/CONSCIOUSNESS: Yes awake, Yes oriented to person, Yes oriented to place and Yes oriented to time HENMT: COMMON NORMALS: normocephalic, atraumatic and hearing grossly normal b ilaterally HEAD & SCALP: normocephalic and atraumatic Neck/C-Spine: COMMON NORMALS: no JVD Resp: COMMON NORMALS: normal respiratory effort, No retractions, No use of accessory muscles and clear to auscultation bilaterally AUSCULTATION: clear to auscultation bilaterally Cardio: COMMON NORMALS: no JVD, regular rate, regular rhythm and No murmurs present (Cardio) RATE: regular rate RHYTHM: regular rhythm GI: COMMON NORMALS: Soft to palpation and No hepatosplenomegaly present AUSCULTATION: Yes normoactive bowel sounds PALPATION: Yes Soft to palpation, No Tenderness to palpation present (GI), No Guarding due to palpation present (GI) and Yes No hepatosplenomegaly present Extremity: COMMON NORMALS: normal to inspection, capillary refill normal, no clubbing, cyanosis or edema, no calf tenderness and no pedal edema Neuro: SENSORIUM/ORIENTATION: Yes oriented to person, Yes oriented to place and Yes oriented to time Skin: COMMON NORMALS: no rashes or lesions noted GENERAL SKIN EXAM: no rashes or lesions noted Course Vital Signs: Vital signs: Vital Signs Temperature 98.6 F 08/18/20 14:50 Pulse Rate 88 08/18/20 14:50 Respiratory Rate 18 08/18/20 14:50 Blood Pressure 188/108 08/18/20 14:50 Pulse Oximetry 97 08/18/20 14:50 MDM - Nausea/Vomiting/Diarrhea MDM Narrative: Medical decision making narrative: Doing better after fluids and antiemetics will discharge home with supportive cares and follow-up as needed. Strongly recommend follow-up with oncology. Lab Data: Labs: Lab Results 08/18/20 08/18/20 08/18/20 Range/Units 11:32 11:32 11:44 WBC 13.2 H (4.0-10.0) 10^3/ uL RBC 5.55 H (4.1-5.3) 10^6/u L Hgb 16.3 H (11.5-15.3) g/dL Hct 50.4 H (37.0-47.0) % MCV 90.8 (81-99) fL MCH 29.4 (28.0-34.0) pg MCHC 32.3 (30.0-36.0) g/dL RDW 15.4 H (12.1-15.1) % Plt Count 275 (130-400) 10^3/c mm MPV 8.7 (7.4-10.4) fL Neut % (Auto) 91.2 % Lymph % (Auto) 2.7 % [place] % (Auto) 4.7 % Eos % (Auto) 0.6 % Baso % (Auto) 0.3 % Neut # (Auto) 12.05 H (1.8-7.7) 10^3/u L Lymph # (Auto) 0.4 L (0.8-4.8) 10^3/u L [place] # (Auto) 0.6 (0.2-0.9) 10^3/u L Eos # (Auto) 0.1 (0.0-0.8) 10^3/u L Baso # (Auto) 0.0 (0.0-0.1) 10^3/u L Nucleated RBC % (a uto) 0 % Nucleated RBCs # 0.0 /100WBC Sodium 142 (136-145) mmol/L Potassium 4.2 (3.5-5.1) mmol/L Chloride 106 (98-107) mmol/L Carbon Dioxide 23 (22-29) mmol/L Anion Gap 17.2 (5-19) BUN 30 H (8-23) mg/dL Creatinine 0.9 (0.5-0.9) mg/dL GFR Calculation Not Reportable Glucose 115 (65-115) mg/dL Calculated Osmolal ity 301 H (285-295) mOsm/k g Calcium 9.5 (8.5-10.5) mg/dL Total Bilirubin 0.6 (0.15-1.2) mg/dL AST 16 (0-32) U/L ALT 13 (0-33) U/L Alkaline Phosphata se 83 (35-105) IU/L Total Protein 7.7 (6.6-8.7) g/dL Albumin 4.3 (3.5-5.2) g/dL Globulin 3.4 (1.3-4.6) g/dL Urine Color Yellow (Yellow) Urine Appearance Clear (CLEAR) Urine pH 5 (5-7) Ur Specific Gravit y 1.020 (1.005-1.030) Urine Protein Neg (Negative) Urine Glucose (UA) Norm (Normal) Urine Ketones Negative (Negative) Urine Blood 3+ H (Negative) Urine Nitrate Negative (Negative) Urine Bilirubin Neg (Negative) Urine Urobilinogen Norm (Negative) mg/dL Ur Leukocyte Gerda ase 1+ H (Negative) Urine RBC 5-10 H (0-2) /hpf Urine WBC 5-10 H (0-5) /hpf Ur Squamous Epith Cells 5-10 H (0-5) /hpf Amorphous Sediment Not Reportable Urine Bacteria 1+ H (NONE) /hpf Hyaline Casts 10-15 H /lpf Urine Mucus 1+ /hpf Discharge Plan Discharge Patient Disposition: Home Clinical Impression: Small cell lung cancer, Nausea & vomiting Condition: Stable Prescriptions: New promethazine 25 mg tablet 25 mg PO Q6H PRN (Reason: nausea and vomiting) Qty: 30 RF: 0 No Action Chantix Starting Month Box 0.5 mg (11)- 1 mg (42) tablets,dose pack 1 each PO PER PKG DIR RF: 0 sertraline [Zoloft] 100 mg tablet See Rx Instructions .ROUTE .COMPLEX RF: 0 simvastatin 10 mg tablet See Rx Instructions .ROUTE .COMPLEX RF: 0 aspirin 325 mg tablet,delayed release (DR/EC) 325 mg PO QAM RF: 0 tramadol 50 mg tablet See Rx Instructions .ROUTE .COMPLEX PRN (Reason: Pain) RF: 0 tiotropium-olodaterol [Stiolto Respimat] 2.5-2.5 mcg/actuation mist See Rx Instructions .ROUTE .COMPLEX Qty: 4 RF: 11 Tylenol Extra Strength 500 mg Tablet 500 - 1,000 mg PO PRN RF: 0 metoprolol tartrate 50 mg tablet 50 mg PO BID RF: 0 Prilosec 20 mg Capsule,Delayed Release(Dr/Ec) 20 mg PO DAILY PRN (Reason: Heartburn) RF: 0 hydroxyzine HCl 10 mg Tablet 10 mg PO TID PRN (Reason: Itching) RF: 0 Magic Mouth Wash Lido/Maal/Zach See Rx Instructions .ROUTE .COMPLEX RF: 0 Discharge Orders: Discharge ED (Routine); Ordered 08/18/20 Ordered By: Adolfo Barrett Referrals: Apollo Brown MD [Primary Care Provider] - Discharge Diet: Clear Liquid Discharge Activity: Increase activity as tolerated Patient Instructions: Opioid Safety Activity Restrictions/Additional Instructions: Follow-up with Dr. Arango as planned if you have worsening problems return. Clear liquid diet for the next 24 to 48 hours advance as tolerated Coding Level of Care Code ED Smash Piecer for Sb Fwd Exam Comprehensive
[2020-08-18] MEDS: ondansetron 2 mg/ML SDV 2 mL 4 MG IVP (12:19)
[2020-08-18] MEDS: sodium chloride 0.9% 1,000 ML 999 ML IV (12:20)
[2020-08-18] MEDS: iohexol 300 mg/mL 100 mL Btl IV (12:36)
[2020-08-18 14:50] VITALS: BP 188/108; PULSE 88; RESP 18; TEMP 37; O2SAT 97
== END 2020-08-18 14:52 | disposition home or self-care (01) ==
PROVIDERS: Emergency Provider Family Medicine; PCP Family Medicine
DX: R11.2 Nausea with vomiting, unspecified (principal); C34.90 Malignant neoplasm of unspecified part of unspecified bronchus or lung; Z79.82 Long term (current) use of aspirin; Z85.3 Personal history of malignant neoplasm of breast; Z92.3 Personal history of irradiation; I10 Essential (primary) hypertension; E78.5 Hyperlipidemia, unspecified; F17.210 Nicotine dependence, cigarettes, uncomplicated
CPT/HCPCS: 74177; 80053; 81001; 85025; 96361; 96374; 99283; J2405; J7030; Q9967

== ENCOUNTER 2020-08-30 10:45 | Outpatient (CLI) | payer MEDICARE, SELFPAY ==
--- NOTE | 2020-08-30 11:06 | MR_ITS ---
WS: [id number] MRI BRAIN WITH AND WITHOUT CONTRAST HISTORY: SMALL CELL LUNG CANCER COMPARISON: 07/28/2020 TECHNIQUE: Multiplanar imaging performed through the brain with MultiHance 11 ml's IV. Previous the described enhancing lesion in the subcortical white matter of the LEFT frontal lobe is s lightly larger and still enhances measuring 7.4 mm. LEFT posterior occipital lobe infarct is again id entified at 7 mm with enhancement. Not significantly changed in size. There is a new area of restrict ed diffusion with very slight enhancement in the posterior LEFT frontal lobe cortex that was not pres ent on the prior study. RIGHT frontal lobe enhancement measures 3 mm. There is moderate to severe bilateral chronic microvascular ischemic type changes otherwise. No progr ession of the remote ischemic disease. No hemorrhage is identified. Ventricles and extra-axial spaces are normal. Clivus and pituitary gland are normal. Visualized posterior fossa and brainstem are also normal. Postcontrast images are negative for masses or vascular malformations. Dural venous sinuses are normal. Paranasal sinuses: Mucoperiosteal thickening with enhancement involving the RIGHT sphenoid sinus and the posterior ethmoid sinus. Mastoid air cells: Normal. Calvarium and scalp: Normal. MR/MR head wo/w con [id number] IMPRESSION: 1. Again noted is the enhancing subcentimeter lesions within the LEFT frontal and LEFT occipital lobes. LEFT frontal lobe lesion is very slightly increased i n size. Suspect these are probably metastatic sites. 2. There is a new RIGHT frontal cortex lesion which demonstrates mild restrict ed diffusion with enhancement. Again the differential includes a subacute infar ct versus metastatic disease.
[2020-08-30] MEDS: gadobenate dimeglumine 20 mL vial IV (12:13)
== END 2020-08-30 10:46 | disposition home or self-care (01) ==
PROVIDERS: PCP Family Medicine; Visit Provider Internal Medicine Medical Oncology
DX: C34.11 Malignant neoplasm of upper lobe, right bronchus or lung (principal)
CPT/HCPCS: 70553; A9577

== ENCOUNTER 2020-09-01 07:31 | Outpatient (CLI) | payer MEDICARE, SELFPAY ==
[2020-09-01 15:50] LABS: Basophils # 0.1 10^3/uL (0.0-0.1); Basophils % 0.6 %; Eosinophils # 0.3 10^3/uL (0.0-0.8); Eosinophils % 2.6 %; Hematocrit 42.8 % (37.0-47.0); Hemoglobin 13.7 g/dL (11.5-15.3); Mean Corpuscular Hemoglobin 29.8 pg (28.0-34.0); Mean Platelet Volume 8.8 fL (7.4-10.4); Monocytes # 0.7 10^3/uL (0.2-0.9); Monocytes % 7.4 %; Neutrophils # 6.89 10^3/uL (1.8-7.7); Neutrophils % 68.9 %; Nucleated Red Blood Cells % 0 %; Platelet Count 256 10^3/cmm (130-400); Red Cell Distribution Width 14.9 % (12.1-15.1)
[2020-09-01 16:36] LABS: Alanine Aminotransferase 17 U/L (0-33); Albumin Level 3.9 g/dL (3.5-5.2); Alkaline Phosphatase 80 IU/L (35-105); Anion Gap 12.9 (5-19); Aspartate Amino Transferase 15 U/L (0-32); Blood Urea Nitrogen 23 mg/dL (8-23); Carbon Dioxide 25 mmol/L (22-29); Chloride 99 mmol/L (98-107); Glucose 96 mg/dL (65-115); Osmolality Calculated 280 mOsm/kg (285-295); Potassium 3.9 mmol/L (3.5-5.1); Sodium 133 mmol/L (136-145); Total Bilirubin 0.2 mg/dL (0.15-1.2); Total Protein 6.9 g/dL (6.6-8.7)
--- NOTE | 2020-09-02 08:02 | ONC FU_ITS ---
Dr. Arango Patient Follow-Up Note Patient: Anneliese Garcia Unit #: [id number]: [id number] Dicatated By: Cedric Arango M.D.Date of Visit:Sep 01, 2020 Onc Med Follow-up/Prog Note Chief Complaint: Lung cancer. History of Present Illness: This is a 74 year-old woman with small cell lung cancer, TNM stage IIIA (T4, N1, M0) by clinical evaluation. 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 She completed radiation in January 2003. She had only brief adjuvant hormonal therapy, stopped at 6 months due to side effects. She has had no evidence of recurrence. She had presented to Dr. Brown with shortness of breath. Her pulmonary function studies in March 2019 showed normal spirometry with severely reduced diffusion capacity. She was referred to Dr. Basilio. Chest CT on on 06/11/2019 showed moderate centrilobular and paraseptal emphysema. There were several noncalcified pleural-based nodules, the most significant in the right upper lobe measuring 10 mm. The findings were suspicious for neoplasm. There was no mediastinal or hilar adenopathy noted. Further evaluation with PET/CT on 06/28/2019 showed a 1.2 cm subpleural nodule in the right upper lobe with SUV 9.8, consistent with a primary lung carcinoma. A 2 cm right upper lobe hilar node had SUV 10.9, consistent with local metastatic disease. An FDG positive pleural-based plaque in the lateral right middle lobe had SUV 8.2, consistent with metastatic disease. On 07/11/2019 she underwent bronchoscopy with EBUS and FNA biopsy of the right hilar lymph node. There was no endobronchial lesion identified and the bronchial washings were nondiagnostic. The FNA biopsy showed numerous cohesive groups of malignant cells with high N/C ratios and neuroendocrine type chromatin, ultimately confirmed to be consistent with small cell carcinoma. I had seen her initially on 07/29/2019. With 2 isolated lung lesions and right hilar node involvement, I was unsure if she was appropriate for concurrent chemoradiation. I opted to have her start chemotherapy with cisplatin/etoposide pending consultation with the radiation oncologist. Ultimately, it was recommended that she proceed with combined therapy beginning with cycle 2 of chemotherapy. Her staging brain MRI on 08/06/2019 showed no evidence of metastatic disease. She began cycle 1 of cisplatin/etoposide chemotherapy on 08/11/2019. She tolerated it without acute toxicity. At day 15 she was severely neutropenic, ANC 400. She was not febrile, and she recovered following treatment with Neupogen. She continued with cycle 2 on 09/01/2019 with the dosages reduced by 10%. At that time she also began concurrent radiation. She continued to have significant fatigue with the treatment, but she otherwise tolerated it pretty well. She continued with cycle 3 of cisplatin/etoposide on 09/24/2019. She completed radiation on 10/10/2019 to a total dose of 6000 cGy. She then continued with her 4th cycle of chemotherapy on 10/15/2019. Restaging chest CT on 11/10/2019 showed improvement in the subpleural right upper lobe nodule measuring 6 mm compared to 9 to 10 mm on the previous studies. The small right middle lobe lesion had resolved. The right hilar lymph node had decreased to 7 mm compared to 2.0 cm. There was no mediastinal adenopathy noted. With those findings I opted to follow her on observation/expectant management. Her other medical illnesses, in addition to the breast cancer, include COPD, hypertension, hyperlipidemia, peripheral arterial disease, degenerative disease of the spine, and osteoporosis. She has a history of hepatitis. She has a history of smoking 1/2 pack of cigarettes daily for 50 years. She has cut down to 2 or 3 cigarettes/day. INTERIM HISTORY: Her chest CT on 02/10/2020 showed complete resolution of subpleural right upper lobe nodule but with progression of right multilobar sub-solid opacifications compared to the October 2019 study. The reported differential included pneumonitis, post therapeutic response to radiation, or new metastatic disease. There was no significant change in the right hilar lymph node measuring 9 mm. Additional subcentimeter mediastinal and hilar lymph nodes appeared slightly more prominent. There was severe underlying emphysema. There was no evidence of other metastatic disease. Her repeat brain MRI showed no evidence of metastatic disease. Given those findings, she continued on observation/expectant management. Repeat chest CT on 05/24/2020 reported semisolid opacities in the right middle lobe and right lower lobe which were noted to have improved compared to the prior study in January. These appear to be most likely treatment related. Right lower lobe airspace infiltrates also were noted to have improved. A subpleural nodularity in the right upper lobe appeared unchanged and there was no progressed mediastinal or hilar lymphadenopathy. A new soft tissue chest wall/pleural nodule was noted in the right lower lobe anteriorly adjacent to the sixth rib. It measured 8 mm and the appearance was suspicious for metastatic disease. However, as the changes appear to be mostly due to radiation, I opted to continue expectant management. She had had surveillance brain MRI on 07/28/2020. It showed a few small foci of restricted diffusion in the left frontal white matter and left parasagittal occipital lobe with associated enhancement. There was a small amount of associated edema with the left occipital lesion. Findings were felt to be due to either small subacute infarcts or metastatic disease. Short-term interval follow-up was recommended. Repeat chest CT on 07/28/2020 reported slight increase in pleural-based nodules in the anterior right middle lobe measuring 8 mm compared to 8 mm in May. An additional pleural-based right lower lobe nodule measured 11 mm, noted to have mild interval progression. There was no increase in size of lymph nodes with the largest measuring 9 mm at the left hilum. On her repeat brain MRI on 08/30/2020 the enhancing lesion in the left frontal lobe subcortical white matter was noted to be slightly larger measuring 7.4 mm. The left posterior occipital lobe lesion at 7 mm was not significantly changed in size, appearance consistent with infarct. A new area of restricted diffusion with slight enhancement was noted in the posterior left frontal lobe cortex. A right frontal lobe enhancement measured 3 mm. Overall, the findings were felt to be suspicious for metastatic sites. She is seen for a scheduled visit. She indicates that she was sick a couple of weeks ago with nausea/vomiting and severe headache. She said the vomiting went on for 3 hours straight, at which point she went to the emergency room for evaluation. Her CT abdomen/pelvis showed no acute findings. She was treated symptomatically and over the next several days she gradually got back to feeling normal. She was noted to be hypertensive and she restarted her amlodipine. Her blood pressures have since then been normal. She has otherwise been feeling okay. She has pretty good energy, though not what it used to be. Her ECOG score is 1. She has good appetite. She has not had fever. She occasionally has sweating. She has shortness of breath with activity. Her breathing is about the same, though. She has just occasional cough. She sometimes has chest pain. She has had no further GI symptoms. She is taking omeprazole for acid reflux. Bowel and bladder function have been okay. She has back pain, which is chronic. She says she usually has headache when she wakes up in the morning, but that has been going on for quite a while. She sometimes has dizziness. She has a little bit of numbness in her hands. Medications: amLODIPine Besylate 1 Tablet (of 5 mg) Oral daily, Aspirin 1 Tablet (of 325 mg) Oral daily, Protonix 1 Tablet (of 40 mg) Tablet, enteric coated Oral daily, Sertraline HCl 1 Tablet (of 100 mg) Oral daily, Simvastatin 1 Tablet (of 10 mg) Oral daily, Stiolto Respimat Aerosol, solution Inhalation, Toprol XL 2 Tablet (of 50 mg) Tablet SR 24 HR Oral daily, traMADol HCl (50 mg) Tablet Oral Take as Directed Allergies: DULoxetine HCl and FLUoxetine HCl. Vital Signs: Performed on Sep 01, 2020 15:41 Height - 65.00 in Weight - 124.6 lbs (LOW) BSA - 1.62 sq.m BMI - 20.73 Temperature - 97.2 F (LOW) Pulse - 75 /min Respiration - 18 /min BP - 131/83 mm(hg) O2 Sat - 93 % (LOW) Pain - 0 Fatigue - 0 Physical Examination: Constitutional - She looks pretty good generally, Eyes - Sclerae nonicteric. Conjunctivae clear, ENMT - No lesions noted in the oral cavity, Hematologic/Lymphatic - No cervical, clavicular, or axillary adenopathy, Respiratory - Lungs sound clear with dimninished air movement bilaterally, Cardiovascular - Heart rhythm is regular. There is no murmur, gallop, or rub noted, Abdomen - Soft. Liver and spleen are not enlarged. There is no abdominal mass or ascites noted and there is no inguinal adenopathy, Extremities - No edema, Neurologic - No focal neurologic deficits noted. Lab/Imaging: Test performed on Sep 01, 2020 15:30 Sodium 133 mmol/L Potassium 3.9 mmol/L Chloride 99 mmol/L CO2 25 mmol/L Anion Gap 12.9 BUN 23 mg/dL Creatinine 0.9 mg/dL Cr Clearance (Est) 50.4100 mL/min Glucose 96 mg/dL Osmolality - Calculated 280 mOsm/kg Calcium 9.0 mg/dL Protein, Total 6.9 g/dL Albumin 3.9 g/dL Globulin 3.0 g/dL Bilirubin, Total 0.2 mg/dL ALT (SGPT) 17 U/L AST (SGOT) 15 U/L Alkaline Phosphatase 80 IU/L WBC 10.0 10 3/uL RBC 4.60 10 6/uL HGB 13.7 g/dL HCT 42.8 % MCV 93.0 fL MCH 29.8 pg MCHC 32.0 g/dL RDW 14.9 % Platelet Count 256 10 3/cmm MPV 8.8 fL Neutrophils 6.89 10 3/uL Lymphocytes 2.0 10 3/uL Monocytes 0.7 10 3/uL Eosinophils 0.3 10 3/uL Basophils 0.1 10 3/uL Neutrophil % 68.9 % Lymphocyte % 20.0 % Monocyte % 7.4 % Eosinophil % 2.6 % Basophils % 0.6 % NRBC % 0 % Problem List: 1. Small cell lung cancer of the right lung, TNM stage IIIA (T4, N1, M0) by clinical evaluation. She underwent bronchoscopy with EBUS and biopsy of right hilar lymph node on 07/11/2019. 2. Her treatment included 4 cycles of cisplatin/etoposide chemotherapy administered from July through September 2019. She was given radiation concurrently, beginning with cycle 2. Radiation was completed on 10/10/2019 to a total dose of 6000 cGy. 3. 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 There has been no evidence of recurrence. 4. COPD. 5. Hypertension. 6. Hyperlipidemia. 7. Peripheral arterial disease. 8. Degenerative arthritis/degenerative disease of the spine. 9. Osteoporosis. 10. History of hepatitis. Problems Addressed with this Encounter and Plan: 1. Patient with small cell lung cancer of the right lung, TNM stage IIIA (T4, N1, M0) by clinical evaluation, initially diagnosed by bronchoscopy/EBUS in June 2019. Treatment included 4 cycles of cisplatin/etoposide chemotherapy administered from July through September 2019. She was given radiation concurrently, beginning with cycle 2. Radiation was completed on 10/10/2019 to a total dose of 6000 cGy. She tolerated the treatment well, and she appeared to have a good response by follow-up chest CT scan, though with development of significant treatment related opacities in the right middle and lower lobes. Her CT scans in May continued to show significant opacities. I did review the scans independently with the patient, and there did appear to be some improvement compared to the January CT scan, but there were still very significant pulmonary parenchymal opacities in the right lung which were new compared to the pretreatment CT scan. These were presumed to be radiation related. On her repeat chest CT on 07/28/2020 the pleural-based nodule in the anterior right middle lobe was noted to have increased to 14 mm compared to 8 mm in May, suspicious for metastasis. Her brain MRI at that time showed new small lesions in the left frontal lobe and left occipital lobe and on her follow-up MRI on 08/30/2020 the left frontal lobe lesion had increased slightly. There were new small lesions noted in the posterior left frontal lobe and in the right frontal lobe. These were felt to be suspicious for metastatic lesions. She was in the emergency room 2 weeks ago with nausea/vomiting, that illness appears to have completely resolved. She has otherwise been stable clinically. Her imaging studies, however, are suspicious for at least 1 or possibly 2 pleural-based metastatic lesions in the right lung and for multiple small metastatic lesions in the brain. I will review the studies with Dr. Bailey and we will then determine whether to proceed with radiation to the brain lesions now or continue close monitoring. 2. She has significant underlying COPD, which has been stable on treatment. 3. Prior history of left breast cancer treated with lumpectomy/radiation in 2002. Thus far there has been no evidence of recurrence. She remains on observation/expectant management. Signed By: Cedric Arango M.D. <<Signature on File>>
== END 2020-09-01 07:32 | disposition home or self-care (01) ==
LOC: ONCMED 07:35
PROVIDERS: PCP Family Medicine; Visit Provider Internal Medicine Medical Oncology
DX: C34.11 Malignant neoplasm of upper lobe, right bronchus or lung (principal); J44.9 Chronic obstructive pulmonary disease, unspecified; I10 Essential (primary) hypertension; E78.5 Hyperlipidemia, unspecified; I73.9 Peripheral vascular disease, unspecified; M47.9 Spondylosis, unspecified; M81.0 Age-related osteoporosis without current pathological fracture; K75.9 Inflammatory liver disease, unspecified; Z92.21 Personal history of antineoplastic chemotherapy; Z92.3 Personal history of irradiation; Z79.899 Other long term (current) drug therapy
CPT/HCPCS: 36591; 80053; 85025; 99215

== ENCOUNTER 2020-10-22 08:30 | Outpatient (CLI) | payer MEDICARE, SELFPAY ==
--- NOTE | 2020-10-22 08:43 | MR_ITS ---
WS: [id number] MRI BRAIN WITH AND WITHOUT CONTRAST HISTORY: BRAIN LESION COMPARISON: 08/30/2020 and 07/28/2020 TECHNIQUE: Multiplanar imaging performed through the brain with MultiHance 14 ml's IV. There are several enhancing lesions within the brain consistent with metastatic disease. Posterior RI GHT frontal lobe lesion towards the vertex is nonhemorrhagic with a maximum diameter of 9 mm. Increas e in size from 3 mm on the prior study. There is an additional new enhancing nodule in the posterior RIGHT frontal cortex measuring 5 mm. Enlarging LEFT frontal subcortical white matter lesion measures 10 x 14 mm is also nonhemorrhagic. Maximum diameter on the prior study was 7.4 mm. There is an additi onal peripherally enhancing irregular lesion in the LEFT occipital lobe with a maximum diameter of 11 mm. This lesion has also increased in size from 7 mm. No additional lesions. No hemorrhagic lesions. Chronic white matter ischemic changes are moderate without progression. Paranasal sinuses: Mild mucoperiosteal thickening throughout the sinuses cavities. There is more exte nsive mucoperiosteal thickening with enhancement involving the LEFT sphenoid sinus. Mastoid air cells: Normal. Calvarium and scalp: Normal. MR/MR head wo/w con [id number] IMPRESSION: 1. Multiple metastatic brain lesions (4) as described above. These have all sl ightly progressed in size and number. Largest lesion in the LEFT frontal subcor tical white matter measures 10 x 14 mm. New metastatic site in the posterior RI GHT frontal cortex towards the vertex measures 5 mm. 2. No hemorrhage or acute infarct. 3. Moderate acute LEFT sphenoid sinusitis.
[2020-10-22] MEDS: gadobenate dimeglumine 20 mL vial IV (09:25)
== END 2020-10-22 08:31 | disposition home or self-care (01) ==
LOC: RADWPI 08:33
PROVIDERS: PCP Family Medicine; Visit Provider Internal Medicine Medical Oncology
DX: G93.9 Disorder of brain, unspecified (principal); J32.3 Chronic sphenoidal sinusitis
CPT/HCPCS: 70553; A9577

== ENCOUNTER 2020-11-15 05:36 | Outpatient (RCR) | payer MEDICARE, SELFPAY ==
--- NOTE | 2020-10-25 15:46 | N.ONRAD NP_ITS ---
Radiation Oncology Consultation Patient Name: Anneliese Garcia Date of : 1945 Date of Service: 10/25/2020 Attending Physician: Bennie Bailey M.D. Anneliese Garcia was seen in consultation this afternoon at the request of Cedric Arango M.D. for consideration of palliative cranial radiotherapy for the management of recently diagnosed brain metastases. She was evaluated for dyspnea in March 2019. A PET CT obtained on June 28, 2019 revealed a 1.2 cm subpleural nodule in the right upper lobe, a pleural-based plaque in the right middle lobe, and a 2 cm right upper lobe hilar lymph node. A subsequent biopsy via EBUS diagnosis small cell lung carcinoma (pathology report was personally reviewed in [employer]). She received 1 cycle of cisplatin and etoposide (July 2019) concurrent chemoradiation. She completed 60 Gy of thoracic radiotherapy with 4 cycles of chemotherapy in September 2019. Surveillance imaging has demonstrated minimal residual disease and she has continued observation. A repeat MRI ordered on October 22, 2020 (independently visualized in [facility]) for continued advertency of questionable abnormalities identified several enhancing lesions metastatic disease ???a 9 mm right frontal lobe vertex lesion, a 5 mm right posterior frontal cortex lesion, a 1 cm x 1.4 cm left frontal subcortical white matter lesion, and a 1.1 cm left occipital lobe lesion. Ms. Elliott presents to my office for discussion regarding stereotactic radiosurgery. Following a discussion concerning Ms. Garcia???s MRI, I reviewed the National [employer] Cancer [employer] Guidelines endorsing stereotactic radiosurgery for patients with newly diagnosed or stable systemic disease with limited brain metastases. I would recommend an ultra-hypofractionated course of radiotherapy. A CT scan will be acquired for radiotherapy planning prior to beginning treatment and co-registered to the patient's MRI to identify the gross tumor volumes. The potential toxicities of SRS were reviewed. The patient has verbalized understanding would like to proceed as recommended. The patient's medical treatment has been discussed with Cedric Arango M.D. Signed by: Dr. Bennie Bailey 10/25/2020 3:44:51 PM
--- NOTE | 2020-10-27 | CT_ITS ---
Radiation Therapy Planning CT images; total exam DLP: 1026.25 mGy-cm MTDD
--- NOTE | 2020-11-01 15:17 | ONCRAD TMN_ITS ---
Stereotactic Radiosurgery Treatment Management Note Patient Name: Anneliese Garcia Date of : 1945 Date of Service: 11/01/2020 Attending Physician: Bennie Bailey M.D. Anneliese Garcia is a 75 year-old white female diagnosed with small cell lung cancer in June 2019. She completed 60 Gy of thoracic radiotherapy with 4 cycles of chemotherapy in September 2019. Surveillance imaging has demonstrated minimal residual disease and she has continued observation. A repeat MRI ordered on October 22, 2020 for continued advertency of questionable abnormalities identified several enhancing lesions metastatic disease ???a 9 mm right frontal lobe vertex lesion, a 5 mm right posterior frontal cortex lesion, a 1 cm x 1.4 cm left frontal subcortical white matter lesion, and a 1.1 cm left occipital lobe lesion. The patient has received 24 Gy of a prescribed 24 Gloria with an intensity modulated radiotherapy pain delivered utilizing stereotactic radiosurgery to the right posterior frontal cortex lesion. Upon review of systems, she denied any neurological complaints. On physical examination, the patient weighed 130 lbs. Her temperature was 97.4 ???F with a blood pressure of 123/70 mmHg. Her pulse was 61 bpm and the respiratory rate was 18. Cranial nerves were intact. SRS to the right posterior frontal lobe lesion was completed today. She will return for the next scheduled SRS procedure. Signed by: Dr. Bennie Bailey 11/01/2020 3:16:28 PM
--- NOTE | 2020-11-10 10:51 | ONCRAD TMN_ITS ---
Stereotactic Radiosurgery Treatment Management Note Patient Name: Anneliese Garcia Date of : 1945 Date of Service: 11/10/2020 Attending Physician: Bennie Bailey M.D. Anneliese Garcia is a 75 year-old white female diagnosed with small cell lung cancer in June 2019. She completed 60 Gy of thoracic radiotherapy with 4 cycles of chemotherapy in September 2019. Surveillance imaging has demonstrated minimal residual disease and she has continued observation. A repeat MRI ordered on October 22, 2020 for continued advertency of questionable abnormalities identified several enhancing lesions metastatic disease ???a 9 mm right frontal lobe vertex lesion, a 5 mm right posterior frontal cortex lesion, a 1 cm x 1.4 cm left frontal subcortical white matter lesion, and a 1.1 cm left occipital lobe lesion. The patient has received 24 Gy of a prescribed 24 Gloria with an intensity modulated radiotherapy pain delivered utilizing stereotactic radiosurgery to the right frontal vertex metastasis. Upon review of systems, she denied any neurological complaints. On physical examination, the patient weighed 128 lbs. Her temperature was 97.5 ???F with a blood pressure of 101/62 mmHg. Her pulse was 62 bpm and the respiratory rate was 20. Cranial nerves were intact. SRS to the right frontal lobe vertex lesion was completed today. She will return for the next scheduled SRS procedure. Signed by: Dr. Bennie Bailey 11/10/2020 10:49:36 AM
--- NOTE | 2020-11-12 09:17 | ONCRAD TMN_ITS ---
Stereotactic Radiosurgery Treatment Management Note Patient Name: Anneliese Garcia Date of : 1945 Date of Service: 11/12/2020 Attending Physician: Bennie Bailey M.D. Anneliese Garcia is a 75 year-old white female diagnosed with small cell lung cancer in June 2019. She completed 60 Gy of thoracic radiotherapy with 4 cycles of chemotherapy in September 2019. Surveillance imaging has demonstrated minimal residual disease and she has continued observation. A repeat MRI ordered on October 22, 2020 for continued advertency of questionable abnormalities identified several enhancing lesions metastatic disease ???a 9 mm right frontal lobe vertex lesion, a 5 mm right posterior frontal cortex lesion, a 1 cm x 1.4 cm left frontal subcortical white matter lesion, and a 1.1 cm left occipital lobe lesion. The patient has received 24 Gy of a prescribed 24 Gloria with an intensity modulated radiotherapy pain delivered utilizing stereotactic radiosurgery to left occipital lobe metastasis. Upon review of systems, she denied any neurological complaints. On physical examination, the patient weighed 129 lbs. Her temperature was 97.7 ???F with a blood pressure of 112/64 mmHg. Her pulse was 67 bpm and the respiratory rate was 18. Cranial nerves were intact. SRS to the left occipital lobe metastasis lesion was completed today. She will return for the next scheduled SRS procedure. Signed by: Dr. Bennie Bailey 11/12/2020 9:16:53 AM
--- NOTE | 2020-11-15 14:44 | ONCRAD TMN_ITS ---
Stereotactic Radiosurgery Treatment Management Note Patient Name: Anneliese Garcia Date of : 1945 Date of Service: 11/15/2020 Attending Physician: Bennie Bailey M.D. Anneliese Garcia is a 75 year-old white female diagnosed with small cell lung cancer in June 2019. She completed 60 Gy of thoracic radiotherapy with 4 cycles of chemotherapy in September 2019. Surveillance imaging has demonstrated minimal residual disease and she has continued observation. A repeat MRI ordered on October 22, 2020 for continued advertency of questionable abnormalities identified several enhancing lesions metastatic disease ???a 9 mm right frontal lobe vertex lesion, a 5 mm right posterior frontal cortex lesion, a 1 cm x 1.4 cm left frontal subcortical white matter lesion, and a 1.1 cm left occipital lobe lesion. The patient has received 24 Gy of a prescribed 24 Gloria with an intensity modulated radiotherapy pain delivered utilizing stereotactic radiosurgery to the left frontal subcortical white matter lesion. Upon review of systems, she described fatigue. On physical examination, the patient weighed 131 lbs. His temperature was 98.3 ???F with a blood pressure of 111/59 mmHg. Her pulse was 69 bpm and her respiratory rate was 20. Cranial nerves were intact. SRS to the left frontal subcortical white matter metastatic deposit was completed today. She will return in two months. An MRI will be ordered as per NCCN Guidelines preceding this appointment. Signed by: Dr. Bennie Bailey 11/15/2020 2:42:49 PM
[2020-11-15 16:10] LABS: Basophils # 0.1 10^3/uL (0.0-0.1); Basophils % 0.7 %; Eosinophils # 0.4 10^3/uL (0.0-0.8); Eosinophils % 5.2 %; Hematocrit 41.3 % (37.0-47.0); Hemoglobin 13.2 g/dL (11.5-15.3); Lymphocytes # 1.6 10^3/uL (0.8-4.8); Lymphocytes % 19.2 %; Mean Corpuscular Hemoglobin 30.1 pg (28.0-34.0); Mean Corpuscular Volume 94.1 fL (81-99); Mean Platelet Volume 9.2 fL (7.4-10.4); Monocytes # 0.6 10^3/uL (0.2-0.9); Monocytes % 7.3 %; Neutrophils # 5.57 10^3/uL (1.8-7.7); Nucleated Red Blood Cells % 0 %; Platelet Count 251 10^3/cmm (130-400); Red Blood Count 4.39 10^6/uL (4.1-5.3); Red Cell Distribution Width 13.7 % (12.1-15.1); White Blood Count 8.3 10^3/uL (4.0-10.0)
[2020-11-15 16:41] LABS: Alanine Aminotransferase 13 U/L (0-33); Albumin Level 3.7 g/dL (3.5-5.2); Alkaline Phosphatase 93 IU/L (35-105); Anion Gap 13.7 (5-19); Aspartate Amino Transferase 16 U/L (0-32); Blood Urea Nitrogen 20 mg/dL (8-23); Calcium 8.8 mg/dL (8.5-10.5); Carbon Dioxide 22 mmol/L (22-29); Chloride 104 mmol/L (98-107); Globulin 2.7 g/dL (1.3-4.6); Glucose 118 mg/dL (65-115); Osmolality Calculated 286 mOsm/kg (285-295); Potassium 3.7 mmol/L (3.5-5.1); Sodium 136 mmol/L (136-145); Total Bilirubin 0.3 mg/dL (0.15-1.2); Total Protein 6.4 g/dL (6.6-8.7)
--- NOTE | 2020-11-19 10:59 | ONC FU_ITS ---
Dr. Arango Patient Follow-Up Note Patient: Anneliese Garcia Unit #: [id number]: 1945 Dicatated By: Cedric Arango M.D.Date of Visit:Nov 15, 2020 Onc Med Follow-up/Prog Note Chief Complaint: Lung cancer. History of Present Illness: This is a 75 year-old woman with small cell lung cancer, TNM stage IIIA (T4, N1, M0) by clinical evaluation. 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 She completed radiation in January 2003. She had only brief adjuvant hormonal therapy, stopped at 6 months due to side effects. She has had no evidence of recurrence. She had presented to Dr. Brown with shortness of breath. Her pulmonary function studies in March 2019 showed normal spirometry with severely reduced diffusion capacity. She was referred to Dr. Basilio. Chest CT on on 06/11/2019 showed moderate centrilobular and paraseptal emphysema. There were several noncalcified pleural-based nodules, the most significant in the right upper lobe measuring 10 mm. The findings were suspicious for neoplasm. There was no mediastinal or hilar adenopathy noted. Further evaluation with PET/CT on 06/28/2019 showed a 1.2 cm subpleural nodule in the right upper lobe with SUV 9.8, consistent with a primary lung carcinoma. A 2 cm right upper lobe hilar node had SUV 10.9, consistent with local metastatic disease. An FDG positive pleural-based plaque in the lateral right middle lobe had SUV 8.2, consistent with metastatic disease. On 07/11/2019 she underwent bronchoscopy with EBUS and FNA biopsy of the right hilar lymph node. There was no endobronchial lesion identified and the bronchial washings were nondiagnostic. The FNA biopsy showed numerous cohesive groups of malignant cells with high N/C ratios and neuroendocrine type chromatin, ultimately confirmed to be consistent with small cell carcinoma. I had seen her initially on 07/29/2019. With 2 isolated lung lesions and right hilar node involvement, I was unsure if she was appropriate for concurrent chemoradiation. I opted to have her start chemotherapy with cisplatin/etoposide pending consultation with the radiation oncologist. Ultimately, it was recommended that she proceed with combined therapy beginning with cycle 2 of chemotherapy. Her staging brain MRI on 08/06/2019 showed no evidence of metastatic disease. She began cycle 1 of cisplatin/etoposide chemotherapy on 08/11/2019. She tolerated it without acute toxicity. At day 15 she was severely neutropenic, ANC 400. She was not febrile, and she recovered following treatment with Neupogen. She continued with cycle 2 on 09/01/2019 with the dosages reduced by 10%. At that time she also began concurrent radiation. She continued to have significant fatigue with the treatment, but she otherwise tolerated it pretty well. She continued with cycle 3 of cisplatin/etoposide on 09/24/2019. She completed radiation on 10/10/2019 to a total dose of 6000 cGy. She then continued with her 4th cycle of chemotherapy on 10/15/2019. Restaging chest CT on 11/10/2019 showed improvement in the subpleural right upper lobe nodule measuring 6 mm compared to 9 to 10 mm on the previous studies. The small right middle lobe lesion had resolved. The right hilar lymph node had decreased to 7 mm compared to 2.0 cm. There was no mediastinal adenopathy noted. With those findings I opted to follow her on observation/expectant management. Her other medical illnesses, in addition to the breast cancer, include COPD, hypertension, hyperlipidemia, peripheral arterial disease, degenerative disease of the spine, and osteoporosis. She has a history of hepatitis. She has a history of smoking 1/2 pack of cigarettes daily for 50 years. She has cut down to 2 or 3 cigarettes/day. INTERIM HISTORY: Her chest CT on 02/10/2020 showed complete resolution of subpleural right upper lobe nodule but with progression of right multilobar sub-solid opacifications compared to the October 2019 study. The reported differential included pneumonitis, post therapeutic response to radiation, or new metastatic disease. There was no significant change in the right hilar lymph node measuring 9 mm. Additional subcentimeter mediastinal and hilar lymph nodes appeared slightly more prominent. There was severe underlying emphysema. There was no evidence of other metastatic disease. Her repeat brain MRI showed no evidence of metastatic disease. Given those findings, she continued on observation/expectant management. Repeat chest CT on 05/24/2020 reported semisolid opacities in the right middle lobe and right lower lobe which were noted to have improved compared to the prior study in January. These appear to be most likely treatment related. Right lower lobe airspace infiltrates also were noted to have improved. A subpleural nodularity in the right upper lobe appeared unchanged and there was no progressed mediastinal or hilar lymphadenopathy. A new soft tissue chest wall/pleural nodule was noted in the right lower lobe anteriorly adjacent to the sixth rib. It measured 8 mm and the appearance was suspicious for metastatic disease. However, as the changes appear to be mostly due to radiation, I opted to continue expectant management. She had had surveillance brain MRI on 07/28/2020. It showed a few small foci of restricted diffusion in the left frontal white matter and left parasagittal occipital lobe with associated enhancement. There was a small amount of associated edema with the left occipital lesion. Findings were felt to be due to either small subacute infarcts or metastatic disease. Short-term interval follow-up was recommended. Repeat chest CT on 07/28/2020 reported slight increase in pleural-based nodules in the anterior right middle lobe measuring 8 mm compared to 8 mm in May. An additional pleural-based right lower lobe nodule measured 11 mm, noted to have mild interval progression. There was no increase in size of lymph nodes with the largest measuring 9 mm at the left hilum. On followup brain MRI on 08/30/2020 the enhancing lesion in the left frontal lobe subcortical white matter was noted to be slightly larger measuring 7.4 mm. The left posterior occipital lobe lesion at 7 mm was not significantly changed in size, appearance consistent with infarct. A new area of restricted diffusion with slight enhancement was noted in the posterior left frontal lobe cortex. A right frontal lobe enhancement measured 3 mm. Overall, the findings were felt to be suspicious for metastatic sites. She then had repeat brain MRI on 10/22/2020. That study showed several enhancing lesions which were felt to be consistent with metastatic disease including a posterior right frontal lobe lesion with maximum diameter of 9 mm, increased from 3 mm on the prior study. An additional new enhancing nodule was noted in the posterior right frontal cortex measuring 5 mm. A left frontal subcortical white matter lesion measuring 10 x 14 mm had increased from 7.4 mm and an additional peripheral enhancing irregular lesion in left occipital lobe measured 11 mm, increased from 7 mm on the prior study. With those findings, she was referred to Dr. Bailey. She then underwent SRS to the right frontal lobe lesion on 11/10/2020, to the left occipital lesion on 11/12/2020, and to the left frontal lesion on 11/15/2020, all sites to a dosage of 2400 cGy. She is seen for a follow-up visit. She is still feeling pretty good generally. She is able to do housework and yard work. Her ECOG score is 1. She has good appetite. She has no fever or night sweats. She has had a little bit of sore throat, but she does not complain of cough. She does get short of breath with activity. She has not been having chest pain. She has no GI or complaints. She has noted that on occasion her right knee gives out, apparently stemming from her previous injury. She has no significant joint or bone pain. She has had just mild headache. She sometimes has dizziness. She has no numbness/paresthesia or other focal neurologic symptoms. Medications: amLODIPine Besylate 1 Tablet (of 5 mg) Tablet Oral daily, Aspirin 1 Tablet (of 325 mg) Oral daily, Chantix 1 (1 mg) Tablet Oral b.i.d., Protonix 1 Tablet (of 40 mg) Tablet, enteric coated Oral daily, Sertraline HCl 1 Tablet (of 100 mg) Oral daily, Simvastatin 1 Tablet (of 10 mg) Oral daily, Stiolto Respimat Aerosol, solution Inhalation, Toprol XL 2 Tablet (of 50 mg) Tablet SR 24 HR Oral daily, traMADol HCl (50 mg) Tablet Oral Take as Directed Allergies: DULoxetine HCl and FLUoxetine HCl. Vital Signs: Performed on Nov 15, 2020 14:47 Height - 65.00 in Temperature - 97.2 F (LOW) Pulse - 74 /min Respiration - 18 /min BP - 126/72 mm(hg) O2 Sat - 92 % (LOW) Pain - 0 Fatigue - 0 Performed on Nov 15, 2020 14:23 Height - 65.00 in Weight - 130.8 lbs Temperature - 98.3 F Pulse - 69 Respiration - 20 BP - 111/59 mm(hg) O2 Sat - 97 % Pain - 0 Performed on Nov 15, 2020 14:23 BMI - 21.766 kg/m2 Physical Examination: Constitutional - She looks pretty good generally, Eyes - Sclerae nonicteric. Conjunctivae clear, ENMT - No lesions noted in the oral cavity, Hematologic/Lymphatic - No cervical, clavicular, or axillary adenopathy, Respiratory - Lungs sound clear with dimninished air movement bilaterally, Cardiovascular - Heart rhythm is regular. There is no murmur, gallop, or rub noted, Abdomen - Soft. Liver and spleen are not enlarged. There is no abdominal mass or ascites noted and there is no inguinal adenopathy, Extremities - No edema, Neurologic - No focal neurologic deficits noted. Lab/Imaging: CBC shows hemoglobin 13.2 g, white blood cell count 8300, and platelet count 251,000. Comprehensive metabolic profile shows stable renal function with BUN 20 and creatinine 1.0 mg/dL. Bilirubin and liver enzymes are normal. Problem List: 1. Small cell lung cancer of the right lung, TNM stage IIIA (T4, N1, M0) by clinical evaluation. She underwent bronchoscopy with EBUS and biopsy of right hilar lymph node on 07/11/2019. 2. Her treatment included 4 cycles of cisplatin/etoposide chemotherapy administered from July through September 2019. She was given radiation concurrently, beginning with cycle 2. Radiation was completed on 10/10/2019 to a total dose of 6000 cGy. 3. 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 There has been no evidence of recurrence. 4. COPD. 5. Hypertension. 6. Hyperlipidemia. 7. Peripheral arterial disease. 8. Degenerative arthritis/degenerative disease of the spine. 9. Osteoporosis. 10. History of hepatitis. Problems Addressed with this Encounter and Plan: 1. Patient with small cell lung cancer of the right lung, TNM stage IIIA (T4, N1, M0) by clinical evaluation, initially diagnosed by bronchoscopy/EBUS in June 2019. Treatment included 4 cycles of cisplatin/etoposide chemotherapy administered from July through September 2019. She was given radiation concurrently, beginning with cycle 2. Radiation was completed on 10/10/2019 to a total dose of 6000 cGy. She tolerated the treatment well, and she appeared to have a good response by follow-up chest CT scan, though with development of significant treatment related opacities in the right middle and lower lobes. Her CT scans in May continued to show significant opacities. I did review the scans independently with the patient, and there did appear to be some improvement compared to the January CT scan, but there were still very significant pulmonary parenchymal opacities in the right lung which were new compared to the pretreatment CT scan. These were presumed to be radiation related. On her repeat chest CT on 07/28/2020 the pleural-based nodule in the anterior right middle lobe was noted to have increased to 14 mm compared to 8 mm in May, suspicious for metastasis. Her brain MRI at that time showed new small lesions in the left frontal lobe and left occipital lobe and on her follow-up MRI on 08/30/2020 the left frontal lobe lesion had increased slightly. There were new small lesions noted in the posterior left frontal lobe and in the right frontal lobe. These were felt to be suspicious for metastatic lesions. Repeat brain MRI on 10/22/2020 showed several enhancing lesions which were felt to be consistent with metastatic disease including 2 posterior right frontal lobe lesions, a left frontal subcortical white matter lesion, and a left occipital lobe lesion. With those findings, she was referred to Dr. Bailey and she underwent SRS to all 3 sites, each to a dosage of 2400 cGy. She has tolerated the radiation well. Her overall clinical status appears stable. She will now be scheduled for restaging CT scans of the chest, abdomen, and pelvis as it has been 3 months since her last studies. She will have further evaluation as indicated. 2. She has significant underlying COPD, which remains stable on current treatment. 3. Prior history of left breast cancer treated with lumpectomy/radiation in 2002. Thus far there has been no evidence of recurrence. She remains on observation/expectant management. Signed By: Cedric Arango M.D. <<Signature on File>>
== END 2020-11-17 23:59 | disposition home or self-care (01) ==
LOC: ONCMED 05:36
PROVIDERS: Absent Provider Radiology Radiation Oncology; PCP Family Medicine; Visit Provider Internal Medicine Medical Oncology
DX: Z51.0 Encounter for antineoplastic radiation therapy (principal); C79.31 Secondary malignant neoplasm of brain; Z85.3 Personal history of malignant neoplasm of breast; J43.9 Emphysema, unspecified; C34.11 Malignant neoplasm of upper lobe, right bronchus or lung; C77.1 Secondary and unspecified malignant neoplasm of intrathoracic lymph nodes; Z92.21 Personal history of antineoplastic chemotherapy; I10 Essential (primary) hypertension; E78.5 Hyperlipidemia, unspecified; I73.9 Peripheral vascular disease, unspecified; M81.0 Age-related osteoporosis without current pathological fracture; F17.210 Nicotine dependence, cigarettes, uncomplicated; Z79.51 Long term (current) use of inhaled steroids
CPT/HCPCS: 36415; 36591; 77300; 77301; 77334; 77336; 77338; 77372; 77470; 80053; 85025; 99205; 99214

== ENCOUNTER 2020-12-07 09:45 | Outpatient (CLI) | payer MEDICARE, SELFPAY ==
--- NOTE | 2020-12-07 09:50 | CT_ITS ---
WS: [id number] CT CHEST TECHNIQUE: Contrast enhanced CT of the chest with coronal and sagittal reformatted images. CLINICAL INFORMATION: LUNG CANCER COMPARISON: CT chest July 28, 2020, May 2020, January and October 2019. PET/CT June 2019 DLP: 588.[address] scans at [facility] use at least one of these dose optimization techniques: automat ed exposure control; mA and/or kV adjustment per patient size (includes targeted exams where dose is matched to clinical indication); or iterative reconstruction. FINDINGS: Advanced chronic emphysematous changes. Bulla formation in the lung apices. No mediastinal or hilar l ymphadenopathy. Aortic calcification. Coronary calcification. Prior cholecystectomy. Traction bronchiectasis right upper lobe. Pleural-based nodule right middle lobe measuring 14 mm is u nchanged. 2 tiny adjacent subpleural nodules measuring 5 mm and 3.7 mm more prominent compared to pr evious. Right lower lobe pleural-based nodule measuring 10 mm with adjacent pleural thickening is unchanged. Interstitial fibrotic changes in the right lower lobe medially likely due to radiation therapy. This is unchanged. Left lung is well aerated. No axillary lymphadenopathy. Cholecystectomy clips. Small esophageal hiata l hernia. Adrenal glands are normal. CT/CT chest w con* [id number] IMPRESSION: 1. Advanced chronic emphysematous changes with bulla formation in the lung api melanie. Traction bronchiectasis right upper lobe. 2. Pleural-based nodule in the right lower lobe measuring 10 mm is unchanged. 3. Pleural-based nodule in the right middle lobe anteriorly measuring 14 mm is unchanged. 2 tiny adjacent subpleural nodules measuring 5 mm and 3.7 mm are mo re prominent compared to previous. Recommend 3 month follow-up. 4. No mediastinal or hilar lymphadenopathy.
[2020-12-07] MEDS: iodixanol 320 mg/mL 100mL Btl IV (10:07)
== END 2020-12-07 09:46 | disposition home or self-care (01) ==
PROVIDERS: PCP Family Medicine; Visit Provider Internal Medicine Medical Oncology
DX: C34.11 Malignant neoplasm of upper lobe, right bronchus or lung (principal); J47.9 Bronchiectasis, uncomplicated; R91.8 Other nonspecific abnormal finding of lung field
CPT/HCPCS: 71260; Q9967

== ENCOUNTER 2021-01-17 10:56 | Outpatient (CLI) | payer MEDICARE, SELFPAY ==
--- NOTE | 2021-01-17 10:58 | MR_ITS ---
WS: [id number] MRI BRAIN WITH AND WITHOUT CONTRAST HISTORY: LUNG Ca; secondary malignant NEOPLASM OF Brain; s/p SRS TX; COMPARISON: 10/22/2020, 08/30/2020 TECHNIQUE: Multiplanar imaging performed through the brain with MultiHance 12 ml's IV. Significant improvement in the metastatic lesions within the brain since the prior study. Largest les ion is 6 mm in the subcortical white matter of the LEFT frontal lobe. Posterior RIGHT frontal cortex lesion is 4 mm. The remaining lesions are not definitely identified. No new lesions are identified. N o hemorrhage or mass effect. Ventricles are normal size. There is moderate chronic microvascular ischemic type changes within the white matter and the lei bilaterally which are stable. Paranasal sinuses: Mucoperiosteal thickening in the LEFT sphenoid sinus. Mastoid air cells: Normal. Calvarium and scalp: Normal. MR/MR head wo/w con [id number] IMPRESSION: 1. Significant decrease in size and number of the metastatic brain lesions. Th e largest lesion is now in the LEFT frontal lobe measuring 6 mm. No new lesions . Only 2 lesions are identified today. 2. Moderate small vessel type ischemic changes in the subcortical white matter and lei.
[2021-01-17] MEDS: gadobenate dimeglumine 20 mL vial IV (11:52)
== END 2021-01-17 10:57 | disposition home or self-care (01) ==
LOC: RADSHAW 10:57
PROVIDERS: PCP Family Medicine; Visit Provider Radiology Radiation Oncology
DX: C34.11 Malignant neoplasm of upper lobe, right bronchus or lung (principal); C79.31 Secondary malignant neoplasm of brain
CPT/HCPCS: 70553; A9577

== ENCOUNTER 2021-01-28 11:10 | Outpatient (CLI) | payer MEDICARE, SELFPAY ==
--- NOTE | 2021-01-28 11:59 | ONCRAD EPV_ITS ---
Radiation Oncology Follow-Up Note Patient Name: Anneliese Garcia Date of : 1945 Date of Service: 01/28/2021 Attending Physician: Bennie Bailey M.D. Anneliese Garcia returned to my office this morning for routinely scheduled follow-up appointment. She completed four stereotactic radiosurgery procedures in October for the management of a small cell lung carcinoma A repeat MRI ordered on October 22, 2020 for continued advertency of questionable abnormalities identified several enhancing lesions metastatic disease ???a 9 mm right frontal lobe vertex lesion, a 5 mm right posterior frontal cortex lesion, a 1 cm x 1.4 cm left frontal subcortical white matter lesion, and a 1.1 cm left occipital lobe lesion. SRS was performed on the dates listed: November 01, 2020 - The prescribed dose of 24 Gy was delivered to the right posterior frontal cortex lesion in one fraction. November 10, 2020 - The prescribed dose of 24 Gy was delivered to the right vertex lesion in one fraction. November 12, 2020 - The prescribed dose of 24 Gy was delivered to the left occipital lobe lesion in one fraction. November 15, 2020 - The prescribed dose of 24 Gy was delivered to the left frontal lobe lesion in one fraction. On review of systems, she refuted any central nervous system complaints. On physical examination, she weighed 129 pounds. The temperature was 98.5???F and her blood pressure was 97/68 mmHg. The pulse was 62 bpm and the respiratory rate was 18 breaths per minute. Neurological exam did not reveal any focal abnormalities. In summary, Ms. Garcia returned for a routine post radiotherapy follow-up. A post-treatment MRI of the brain revealed a complete response to SRS of the right vertex lesion and the left occipital lobe lesion. The left frontal lobe lesion now measures 6 mm and the right posterior frontal cortex lesion measure 4 mm indicating a significant response thus far. She will return in 3 months following a surveillance MRI of the brain. Signed by: Dr. Bennie Bailey 01/28/2021 11:57:40 AM
== END 2021-01-28 11:11 | disposition home or self-care (01) ==
LOC: ONCMED 11:12
PROVIDERS: PCP Family Medicine; Visit Provider Radiology Radiation Oncology
DX: C34.11 Malignant neoplasm of upper lobe, right bronchus or lung (principal); C79.31 Secondary malignant neoplasm of brain; Z79.899 Other long term (current) drug therapy
CPT/HCPCS: 99024

== ENCOUNTER 2021-02-03 06:04 | Outpatient (CLI) | payer MEDICARE, SELFPAY ==
--- NOTE | 2021-02-04 07:43 | ONC FU_ITS ---
Dr. Arango Patient Follow-Up Note Patient: Anneliese Garcia Unit #: [id number]: 1945 Dicatated By: Cedric Arango M.D.Date of Visit:Feb 03, 2021 Onc Med Follow-up/Prog Note Chief Complaint: Lung cancer. History of Present Illness: This is a 75 year-old woman with small cell lung cancer, TNM stage IIIA (T4, N1, M0) by clinical evaluation. 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 She completed radiation in January 2003. She had only brief adjuvant hormonal therapy, stopped at 6 months due to side effects. She has had no evidence of recurrence. She had presented to Dr. Brown with shortness of breath. Her pulmonary function studies in March 2019 showed normal spirometry with severely reduced diffusion capacity. She was referred to Dr. Basilio. Chest CT on on 06/11/2019 showed moderate centrilobular and paraseptal emphysema. There were several noncalcified pleural-based nodules, the most significant in the right upper lobe measuring 10 mm. The findings were suspicious for neoplasm. There was no mediastinal or hilar adenopathy noted. Further evaluation with PET/CT on 06/28/2019 showed a 1.2 cm subpleural nodule in the right upper lobe with SUV 9.8, consistent with a primary lung carcinoma. A 2 cm right upper lobe hilar node had SUV 10.9, consistent with local metastatic disease. An FDG positive pleural-based plaque in the lateral right middle lobe had SUV 8.2, consistent with metastatic disease. On 07/11/2019 she underwent bronchoscopy with EBUS and FNA biopsy of the right hilar lymph node. There was no endobronchial lesion identified and the bronchial washings were nondiagnostic. The FNA biopsy showed numerous cohesive groups of malignant cells with high N/C ratios and neuroendocrine type chromatin, ultimately confirmed to be consistent with small cell carcinoma. I had seen her initially on 07/29/2019. With 2 isolated lung lesions and right hilar node involvement, I was unsure if she was appropriate for concurrent chemoradiation. I opted to have her start chemotherapy with cisplatin/etoposide pending consultation with the radiation oncologist. Ultimately, it was recommended that she proceed with combined therapy beginning with cycle 2 of chemotherapy. Her staging brain MRI on 08/06/2019 showed no evidence of metastatic disease. She began cycle 1 of cisplatin/etoposide chemotherapy on 08/11/2019. She tolerated it without acute toxicity. At day 15 she was severely neutropenic, ANC 400. She was not febrile, and she recovered following treatment with Neupogen. She continued with cycle 2 on 09/01/2019 with the dosages reduced by 10%. At that time she also began concurrent radiation. She continued to have significant fatigue with the treatment, but she otherwise tolerated it pretty well. She continued with cycle 3 of cisplatin/etoposide on 09/24/2019. She completed radiation on 10/10/2019 to a total dose of 6000 cGy. She then continued with her 4th cycle of chemotherapy on 10/15/2019. Restaging chest CT on 11/10/2019 showed improvement in the subpleural right upper lobe nodule measuring 6 mm compared to 9 to 10 mm on the previous studies. The small right middle lobe lesion had resolved. The right hilar lymph node had decreased to 7 mm compared to 2.0 cm. There was no mediastinal adenopathy noted. With those findings I opted to follow her on observation/expectant management. Her other medical illnesses, in addition to the breast cancer, include COPD, hypertension, hyperlipidemia, peripheral arterial disease, degenerative disease of the spine, and osteoporosis. She has a history of hepatitis. She has a history of smoking 1/2 pack of cigarettes daily for 50 years. She has cut down to 2 or 3 cigarettes/day. INTERIM HISTORY: Her chest CT on 02/10/2020 showed complete resolution of subpleural right upper lobe nodule but with progression of right multilobar sub-solid opacifications compared to the October 2019 study. The reported differential included pneumonitis, post therapeutic response to radiation, or new metastatic disease. There was no significant change in the right hilar lymph node measuring 9 mm. Additional subcentimeter mediastinal and hilar lymph nodes appeared slightly more prominent. There was severe underlying emphysema. There was no evidence of other metastatic disease. Her repeat brain MRI showed no evidence of metastatic disease. Given those findings, she continued on observation/expectant management. Repeat chest CT on 05/24/2020 reported semisolid opacities in the right middle lobe and right lower lobe which were noted to have improved compared to the prior study in January. These appear to be most likely treatment related. Right lower lobe airspace infiltrates also were noted to have improved. A subpleural nodularity in the right upper lobe appeared unchanged and there was no progressed mediastinal or hilar lymphadenopathy. A new soft tissue chest wall/pleural nodule was noted in the right lower lobe anteriorly adjacent to the sixth rib. It measured 8 mm and the appearance was suspicious for metastatic disease. However, as the changes appear to be mostly due to radiation, I opted to continue expectant management. She had had surveillance brain MRI on 07/28/2020. It showed a few small foci of restricted diffusion in the left frontal white matter and left parasagittal occipital lobe with associated enhancement. There was a small amount of associated edema with the left occipital lesion. Findings were felt to be due to either small subacute infarcts or metastatic disease. Short-term interval follow-up was recommended. Repeat chest CT on 07/28/2020 reported slight increase in pleural-based nodules in the anterior right middle lobe measuring 8 mm compared to 8 mm in May. An additional pleural-based right lower lobe nodule measured 11 mm, noted to have mild interval progression. There was no increase in size of lymph nodes with the largest measuring 9 mm at the left hilum. On followup brain MRI on 08/30/2020 the enhancing lesion in the left frontal lobe subcortical white matter was noted to be slightly larger measuring 7.4 mm. The left posterior occipital lobe lesion at 7 mm was not significantly changed in size, appearance consistent with infarct. A new area of restricted diffusion with slight enhancement was noted in the posterior left frontal lobe cortex. A right frontal lobe enhancement measured 3 mm. Overall, the findings were felt to be suspicious for metastatic sites. She then had repeat brain MRI on 10/22/2020. That study showed several enhancing lesions which were felt to be consistent with metastatic disease including a posterior right frontal lobe lesion with maximum diameter of 9 mm, increased from 3 mm on the prior study. An additional new enhancing nodule was noted in the posterior right frontal cortex measuring 5 mm. A left frontal subcortical white matter lesion measuring 10 x 14 mm had increased from 7.4 mm and an additional peripheral enhancing irregular lesion in left occipital lobe measured 11 mm, increased from 7 mm on the prior study. With those findings, she was referred to Dr. Bailey. She then underwent SRS to the right frontal lobe lesion on 11/10/2020, to the left occipital lesion on 11/12/2020, and to the left frontal lesion on 11/15/2020, all sites to a dosage of [address] on 12/07/2020 showed unchanged pleural-based nodule in the right lower lobe measuring 10 mm. A pleural-based nodule in the right middle lobe anteriorly measuring 14 mm also appeared unchanged. There were 2 tiny adjacent subpleural nodules measuring 5 mm and 3.7 mm which appeared more prominent. There is no mediastinal or hilar lymphadenopathy or other evidence of metastatic disease. There were advanced chronic emphysematous changes. Repeat brain MRI on 01/17/2021 showed significant decrease in the size and number of metastatic brain lesions. Only 2 lesions were identified, the largest in the left frontal lobe measuring 6 mm. There were no new lesions identified. She is seen for a follow-up visit. She says she has been feeling all right. Her energy has been declining somewhat, but she is still doing light work. ECOG score is 1. She has good appetite. She has not had fever. She does put having some sweating at times. She complains of having dry throat. She has cough productive of greenish sputum. She has some shortness of breath. She had been having pain under her right rib cage, but she says that finally went away. She has no GI/ complaints other than her bladder is a little weak. She has no other joint or bone pain. She has had headaches, usually in the mornings. She has dizziness when she bends over. She has no focal neurologic symptoms. Medications: amLODIPine Besylate 1 Tablet (of 5 mg) Tablet Oral daily, Aspirin 1 Tablet (of 325 mg) Oral daily, Chantix 1 (1 mg) Tablet Oral b.i.d., Protonix 1 Tablet (of 40 mg) Tablet, enteric coated Oral daily, Sertraline HCl 1 Tablet (of 100 mg) Oral daily, Simvastatin 1 Tablet (of 10 mg) Oral daily, Stiolto Respimat Aerosol, solution Inhalation, Toprol XL 2 Tablet (of 50 mg) Tablet SR 24 HR Oral daily, traMADol HCl (50 mg) Tablet Oral Take as Directed Allergies: DULoxetine HCl and FLUoxetine HCl. Vital Signs: Performed on Feb 03, 2021 11:32 Height - 65.00 in Weight - 129 lbs BSA - 1.64 sq.m BMI - 21.47 Temperature - 97.3 F (LOW) Pulse - 62 /min Respiration - 18 /min BP - 111/70 mm(hg) O2 Sat - 94 % (LOW) Pain - 0 Fatigue - 0 Physical Examination: Constitutional - She looks pretty good generally, Eyes - Sclerae nonicteric. Conjunctivae clear, ENMT - No lesions noted in the oral cavity, Hematologic/Lymphatic - No cervical, clavicular, or axillary adenopathy, Respiratory - Lungs sound clear with dimninished air movement bilaterally, Cardiovascular - Heart rhythm is regular. There is no murmur, gallop, or rub noted, Abdomen - Soft. Liver and spleen are not enlarged. There is no abdominal mass or ascites noted and there is no inguinal adenopathy, Extremities - No edema, Neurologic - No focal neurologic deficits noted. Problem List: 1. Small cell lung cancer of the right lung, TNM stage IIIA (T4, N1, M0) by clinical evaluation. She underwent bronchoscopy with EBUS and biopsy of right hilar lymph node on 07/11/2019. 2. Her treatment included 4 cycles of cisplatin/etoposide chemotherapy administered from July through September 2019. She was given radiation concurrently, beginning with cycle 2. Radiation was completed on 10/10/2019 to a total dose of 6000 cGy. 3. 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 There has been no evidence of recurrence. 4. COPD. 5. Hypertension. 6. Hyperlipidemia. 7. Peripheral arterial disease. 8. Degenerative arthritis/degenerative disease of the spine. 9. Osteoporosis. 10. History of hepatitis. Problems Addressed with this Encounter and Plan: 1. Patient with small cell lung cancer of the right lung, TNM stage IIIA (T4, N1, M0) by clinical evaluation, initially diagnosed by bronchoscopy/EBUS in June 2019. Treatment included 4 cycles of cisplatin/etoposide chemotherapy administered from July through September 2019. She was given radiation concurrently, beginning with cycle 2. Radiation was completed on 10/10/2019 to a total dose of 6000 cGy. She tolerated the treatment well, and she appeared to have a good response by follow-up chest CT scan, though with development of significant treatment related opacities in the right middle and lower lobes. Her CT scans in May continued to show significant opacities. I did review the scans independently with the patient, and there did appear to be some improvement compared to the January CT scan, but there were still very significant pulmonary parenchymal opacities in the right lung which were new compared to the pretreatment CT scan. These were presumed to be radiation related. On her repeat chest CT on 07/28/2020 the pleural-based nodule in the anterior right middle lobe was noted to have increased to 14 mm compared to 8 mm in May, suspicious for metastasis. Her brain MRI at that time showed new small lesions in the left frontal lobe and left occipital lobe and on her follow-up MRI on 08/30/2020 the left frontal lobe lesion had increased slightly. There were new small lesions noted in the posterior left frontal lobe and in the right frontal lobe. These were felt to be suspicious for metastatic lesions. Repeat brain MRI on 10/22/2020 showed several enhancing lesions which were felt to be consistent with metastatic disease including 2 posterior right frontal lobe lesions, a left frontal subcortical white matter lesion, and a left occipital lobe lesion. With those findings, she was referred to Dr. Bailey and she underwent SRS to all 3 sites, each to a dosage of 2400 cGy. She tolerated the radiation very well. Her restaging chest CT on 12/07/2020 showed no evidence of disease progression. There was significant improvement noted on her followup brain MRI on 01/17/2021. At this point she appears stable clinically, and she will continue on expectant management. I will see her again with restaging CT scans in 2 months. 2. She has significant underlying COPD, which remains stable on current treatment. 3. She has a prior history of left breast cancer treated with lumpectomy/radiation in 2002. Thus far there has been no evidence of recurrence. She remains on observation/expectant management. Signed By: Cedric Arango M.D. <<Signature on File>>
== END 2021-02-03 06:05 | disposition home or self-care (01) ==
PROVIDERS: PCP Family Medicine; Visit Provider Internal Medicine Medical Oncology
DX: C34.01 Malignant neoplasm of right main bronchus (principal); C79.31 Secondary malignant neoplasm of brain; J44.9 Chronic obstructive pulmonary disease, unspecified; I10 Essential (primary) hypertension; E78.5 Hyperlipidemia, unspecified; I73.9 Peripheral vascular disease, unspecified; M47.9 Spondylosis, unspecified; M81.0 Age-related osteoporosis without current pathological fracture; K73.9 Chronic hepatitis, unspecified; Z85.3 Personal history of malignant neoplasm of breast; Z79.899 Other long term (current) drug therapy; Z92.21 Personal history of antineoplastic chemotherapy; Z92.3 Personal history of irradiation
CPT/HCPCS: 96523; 99214

== ENCOUNTER 2021-03-10 10:06 | Outpatient (CLI) | payer MEDICARE, SELFPAY ==
[2021-03-10 10:46] LABS: Basophils # 0.1 10^3/uL (0.0-0.1); Basophils % 1.1 %; Eosinophils # 0.7 10^3/uL (0.0-0.8); Eosinophils % 5.9 %; Hematocrit 45.3 % (37.0-47.0); Hemoglobin 14.4 g/dL (11.5-15.3); Lymphocytes # 1.9 10^3/uL (0.8-4.8); Lymphocytes % 17.2 %; Mean Corpuscular HGB Conc 31.8 g/dL (30.0-36.0); Mean Corpuscular Hemoglobin 30.6 pg (28.0-34.0); Mean Corpuscular Volume 96.2 fl (81-99); Mean Platelet Volume 8.7 fL (7.4-10.4); Monocytes # 0.9 10^3/uL (0.2-0.9); Monocytes % 7.8 %; Neutrophils # 7.63 10^3/uL (1.8-7.7); Neutrophils % 67.5 %; Nucleated Red Blood Cells % 0 %; Platelet Count 281 10^3/cmm (130-400); Red Blood Count 4.71 10^6/uL (4.1-5.3); Red Cell Distribution Width 14.3 % (12.1-15.1); White Blood Count 11.3 10^3/uL (4.0-10.0)
[2021-03-10 11:07] LABS: Alanine Aminotransferase 9 U/L (0-33); Albumin Level 3.6 g/dL (3.5-5.2); Alkaline Phosphatase 88 IU/L (35-105); Anion Gap 13.3 (5-19); Aspartate Amino Transferase 11 U/L (0-32); Blood Urea Nitrogen 21 mg/dL (8-23); Calcium 8.8 mg/dL (8.5-10.5); Carbon Dioxide 26 mmol/L (22-29); Chloride 102 mmol/L (98-107); Globulin 2.7 g/dL (1.3-4.6); Glucose 94 mg/dL (65-115); Osmolality Calculated 287 mOsm/kg (285-295); Potassium 4.3 mmol/L (3.5-5.1); Sodium 137 mmol/L (136-145); Total Bilirubin 0.4 mg/dL (0.15-1.2); Total Protein 6.3 g/dL (6.6-8.7)
--- NOTE | 2021-03-10 11:13 | CT_ITS ---
WS: [id number] CT CHEST TECHNIQUE: Contrast enhanced CT of the chest with coronal and sagittal reformatted images. CLINICAL INFORMATION: LUNG CANCER; SECONDARY MALIGNANT NEOPLASM BRAIN COMPARISON: December 07, 2020 and July 28, 2020. Prior CTs dating back to DLP: 311.[address] scans at [facility] use at least one of these dose optimization techniques: automated e xposure control; mA and/or kV adjustment per patient size (includes targeted exams where dose is matc hed to clinical indication); or iterative reconstruction. FINDINGS: Advanced chronic emphysematous change with bulla formation in the upper lobes. Fibrosis right upper l obe with traction bronchiectasis. Pleural nodules in the right upper lobe anteriorly are stable to sl ightly more prominent. Largest area of pleural nodularity measures 14 mm. Adjacent smaller pleural no dules are unchanged. Pleural-based nodule in the right lower lobe measuring 15 mm today is progressed compared to previous measuring 10 mm on the prior study Normal caliber thoracic aorta. Aortic calcification. Normal caliber proximal main pulmonary arteries . Stable bronchovascular thickening along the right hilum. No mediastinal or hilar lymphadenopathy. N o axillary lymphadenopathy. Diffuse fatty infiltration of the liver. Cholecystectomy clips. Right renal cyst partially visualized . Adrenal glands are normal. Small esophageal hiatal hernia. Mild thoracic kyphosis. CT/CT chest w con* [id number] IMPRESSION: 1. Right lower lobe pleural nodule slightly progressed compared to the prior s tudies measuring approximately 15 mm compared to 10 mm previous. Consider furth er evaluation with PET/CT. 2. Right upper lobe pleural nodules anteriorly are stable to slightly more pro minent compared to previous. This appears slightly more prominent when compared to May 2020 3. Advanced chronic emphysematous changes with traction bronchiectasis in the right upper lobe. 4. No mediastinal or hilar lymphadenopathy.
[2021-03-10] MEDS: iohexol 300 mg/mL 100 mL Btl IV (11:56)
== END 2021-03-10 10:07 | disposition home or self-care (01) ==
PROVIDERS: PCP Family Medicine; Visit Provider Internal Medicine Medical Oncology
DX: C34.11 Malignant neoplasm of upper lobe, right bronchus or lung (principal); C79.31 Secondary malignant neoplasm of brain; J43.9 Emphysema, unspecified
CPT/HCPCS: 36591; 71260; 80053; 85025; Q9967

== ENCOUNTER 2021-05-03 14:17 | Outpatient (CLI) | payer MEDICARE, SELFPAY ==
--- NOTE | 2021-05-03 14:27 | MR_ITS ---
WS: [id number] MRI BRAIN WITH AND WITHOUT CONTRAST HISTORY: LUNG Cancer, secondary MALIGNANT NEOPLASM OF BRAIN COMPARISON: 01/17/2021 and 10/22/2020 TECHNIQUE: Multiplanar imaging performed through the brain with MultiHance 13 ml's IV. No acute infarct. Previously described metastatic lesions are no longer apparent. There is a new enh ancing nodule measuring 4 mm in the LEFT occipital lobe cortex that was not present on the prior stud y. Additional 5 mm enhancing nodule in the LEFT postcentral gyrus. T1 and T2 bright hemorrhagic lesio n which is nonenhancing and may be from old treated disease and subcortical LEFT frontal white matter . Additional area of hemosiderin in the cortex posterior LEFT occipital lobe. Additional T2 and FLAIR signal hyperintensities surrounding the ventricles and within this lei consi stent with advanced microvascular small vessel ischemic change is stable. No acute infarct. Ventricles and extra-axial spaces are normal. Clivus and pituitary gland are normal. No additional enhancing lesions. Paranasal sinuses: Mild mucoperiosteal thickening in the frontal sinuses. No air-fluid levels. Additi onal moderate mucoperiosteal thickening in the LEFT sphenoid sinus. Mastoid air cells: Normal. Calvarium and scalp: Normal. MR/MR head wo/w con [id number] IMPRESSION: 1. Previously described subcentimeter metastatic lesions are no longer present . 2. New metastatic lesions are identified x2 . The largest measuring 5 mm in th e LEFT postcentral gyrus and a small 4 mm lesion in the LEFT occipital lobe cor vic. No significant amount of surrounding edema or midline shift. 3. The chronic microvascular ischemic disease in the lei and supratentorial w sukumar matter is otherwise stable.
[2021-05-03] MEDS: gadobenate dimeglumine 20 mL vial IV (15:05)
== END 2021-05-03 14:18 | disposition home or self-care (01) ==
PROVIDERS: PCP Family Medicine; Visit Provider Radiology Radiation Oncology
DX: C34.11 Malignant neoplasm of upper lobe, right bronchus or lung (principal); I67.82 Cerebral ischemia
CPT/HCPCS: 70553; A9577

== ENCOUNTER 2021-05-05 11:50 | Outpatient (CLI) | payer MEDICARE, SELFPAY ==
[2021-05-05] MEDS: alteplase 1 mg/mL SDV 2 mL 2 MG IV (12:35)
[2021-05-05 13:00] LABS: Basophils % 0.4 %; Eosinophils # 0.3 10^3/uL (0.0-0.8); Eosinophils % 3.4 %; Hematocrit 45.5 % (37.0-47.0); Lymphocytes % 22.1 %; Mean Corpuscular Hemoglobin 30.5 pg (28.0-34.0); Mean Corpuscular Volume 92.5 fl (81-99); Mean Platelet Volume 8.6 fL (7.4-10.4); Monocytes # 0.7 10^3/uL (0.2-0.9); Monocytes % 7.7 %; Neutrophils # 6.05 10^3/uL (1.8-7.7); Neutrophils % 65.7 %; Nucleated Red Blood Cells % 0 %; Platelet Count 257 10^3/cmm (130-400); Red Blood Count 4.92 10^6/uL (4.1-5.3); Red Cell Distribution Width 14.1 % (12.1-15.1); White Blood Count 9.2 10^3/uL (4.0-10.0)
[2021-05-05 13:16] LABS: Alanine Aminotransferase 10 U/L (0-33); Albumin Level 3.8 g/dL (3.5-5.2); Alkaline Phosphatase 99 IU/L (35-105); Anion Gap 18.8 (5-19); Aspartate Amino Transferase 14 U/L (0-32); Blood Urea Nitrogen 20 mg/dL (8-23); Calcium 8.6 mg/dL (8.5-10.5); Carbon Dioxide 20 mmol/L (22-29); Chloride 100 mmol/L (98-107); Globulin 2.8 g/dL (1.3-4.6); Glucose 87 mg/dL (65-115); Osmolality Calculated 280 mOsm/kg (285-295); Potassium 4.8 mmol/L (3.5-5.1); Sodium 134 mmol/L (136-145); Total Bilirubin 0.2 mg/dL (0.15-1.2); Total Protein 6.6 g/dL (6.6-8.7)
== END 2021-05-05 11:51 | disposition home or self-care (01) ==
LOC: RADOUTREAD 12:15 → ONCMED 12:16
PROVIDERS: PCP Family Medicine; Visit Provider Internal Medicine Medical Oncology
DX: C34.90 Malignant neoplasm of unspecified part of unspecified bronchus or lung (principal); J42 Unspecified chronic bronchitis; J43.9 Emphysema, unspecified; F17.200 Nicotine dependence, unspecified, uncomplicated
CPT/HCPCS: 36593; 80053; 85025; 96374; J2997

== ENCOUNTER 2021-05-06 06:39 | Outpatient (CLI) | payer MEDICARE, SELFPAY ==
--- NOTE | 2021-05-06 11:25 | ONCRAD EPV_ITS ---
Radiation Oncology Follow-Up Note Patient Name: Anneliese Garcia Date of : 1945 Date of Service: 05/06/2021 Attending Physician: Bennie Bailey M.D. Anneliese Garcia returned to my office this morning for routinely scheduled follow-up appointment. She completed four stereotactic radiosurgery procedures in October for the management of a small cell lung carcinoma A repeat MRI ordered on October 22, 2020 for continued advertency of questionable abnormalities identified several enhancing lesions metastatic disease ???a 9 mm right frontal lobe vertex lesion, a 5 mm right posterior frontal cortex lesion, a 1 cm x 1.4 cm left frontal subcortical white matter lesion, and a 1.1 cm left occipital lobe lesion. SRS was performed on the dates listed: November 01, 2020 - The prescribed dose of 24 Gy was delivered to the right posterior frontal cortex lesion in one fraction. November 10, 2020 - The prescribed dose of 24 Gy was delivered to the right vertex lesion in one fraction. November 12, 2020 - The prescribed dose of 24 Gy was delivered to the left occipital lobe lesion in one fraction. November 15, 2020 - The prescribed dose of 24 Gy was delivered to the left frontal lobe lesion in one fraction. An MRI ordered on May 03, 2021 confirmed resolution of the prior lesions, but described two new metastatic deposits: a 5 mm left post-central gyral lesion and a 4 mm left occipital lobe lesion. On review of systems, she refuted any central nervous system complaints. On physical examination, she weighed 126 pounds. The temperature was 97.7???F and her blood pressure was 106/69 mmHg. The pulse was 67 bpm and the respiratory rate was 16 breaths per minute. Neurological exam did not reveal any focal abnormalities. In summary, Ms. Garcia returned for a routine post radiotherapy follow-up. A post-treatment MRI of the brain revealed a complete response to SRS, but interval development of two metastases. A thoracoabdominal CT scan will be ordered to assess systemic disease prior to further radiotherapy recommendations. She will return following CT imaging. Signed by: Dr. Bennie Bailey 05/06/2021 11:24:17 AM
--- NOTE | 2021-05-09 07:43 | ONC FU_ITS ---
Dr. Arango Patient Follow-Up Note Patient: Anneliese Garcia Unit #: [id number]: 1945 Dicatated By: Cedric Arango M.D.Date of Visit:May 06, 2021 Onc Med Follow-up/Prog Note Chief Complaint: Lung cancer. History of Present Illness: This is a 75 year-old woman with small cell lung cancer, by clinical evaluation stage IIIA (T4, N1, M0) at initial diagnosis in June 2019. She had subsequent progression to stage IVB (M1c). 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 She completed radiation in January 2003. She had only brief adjuvant hormonal therapy, stopped at 6 months due to side effects. She has had no evidence of recurrence. She had presented to Dr. Brown with shortness of breath. Her pulmonary function studies in March 2019 showed normal spirometry with severely reduced diffusion capacity. She was referred to Dr. Basilio. Chest CT on on 06/11/2019 showed moderate centrilobular and paraseptal emphysema. There were several noncalcified pleural-based nodules, the most significant in the right upper lobe measuring 10 mm. The findings were suspicious for neoplasm. There was no mediastinal or hilar adenopathy noted. Further evaluation with PET/CT on 06/28/2019 showed a 1.2 cm subpleural nodule in the right upper lobe with SUV 9.8, consistent with a primary lung carcinoma. A 2 cm right upper lobe hilar node had SUV 10.9, consistent with local metastatic disease. An FDG positive pleural-based plaque in the lateral right middle lobe had SUV 8.2, consistent with metastatic disease. On 07/11/2019 she underwent bronchoscopy with EBUS and FNA biopsy of the right hilar lymph node. There was no endobronchial lesion identified and the bronchial washings were nondiagnostic. The FNA biopsy showed numerous cohesive groups of malignant cells with high N/C ratios and neuroendocrine type chromatin, ultimately confirmed to be consistent with small cell carcinoma. I had seen her initially on 07/29/2019. With 2 isolated lung lesions and right hilar node involvement, I was unsure if she was appropriate for concurrent chemoradiation. I opted to have her start chemotherapy with cisplatin/etoposide pending consultation with the radiation oncologist. Ultimately, it was recommended that she proceed with combined therapy beginning with cycle 2 of chemotherapy. Her staging brain MRI on 08/06/2019 showed no evidence of metastatic disease. She began cycle 1 of cisplatin/etoposide chemotherapy on 08/11/2019. She tolerated it without acute toxicity. At day 15 she was severely neutropenic, ANC 400. She was not febrile, and she recovered following treatment with Neupogen. She continued with cycle 2 on 09/01/2019 with the dosages reduced by 10%. At that time she also began concurrent radiation. She continued to have significant fatigue with the treatment, but she otherwise tolerated it pretty well. She continued with cycle 3 of cisplatin/etoposide on 09/24/2019. She completed radiation on 10/10/2019 to a total dose of 6000 cGy. She then continued with her 4th cycle of chemotherapy on 10/15/2019. Restaging chest CT on 11/10/2019 showed improvement in the subpleural right upper lobe nodule measuring 6 mm compared to 9 to 10 mm on the previous studies. The small right middle lobe lesion had resolved. The right hilar lymph node had decreased to 7 mm compared to 2.0 cm. There was no mediastinal adenopathy noted. With those findings I opted to follow her on observation/expectant management. Her chest CT on 02/10/2020 showed complete resolution of subpleural right upper lobe nodule but with progression of right multilobar sub-solid opacifications compared to the October 2019 study. The reported differential included pneumonitis, post therapeutic response to radiation, or new metastatic disease. There was no significant change in the right hilar lymph node measuring 9 mm. Additional subcentimeter mediastinal and hilar lymph nodes appeared slightly more prominent. There was severe underlying emphysema. There was no evidence of other metastatic disease. Her repeat brain MRI showed no evidence of metastatic disease. Given those findings, she continued on observation/expectant management. Repeat chest CT on 05/24/2020 reported semisolid opacities in the right middle lobe and right lower lobe which were noted to have improved compared to the prior study in January. These appear to be most likely treatment related. Right lower lobe airspace infiltrates also were noted to have improved. A subpleural nodularity in the right upper lobe appeared unchanged and there was no progressed mediastinal or hilar lymphadenopathy. A new soft tissue chest wall/pleural nodule was noted in the right lower lobe anteriorly adjacent to the sixth rib. It measured 8 mm and the appearance was suspicious for metastatic disease. However, as the changes appear to be mostly due to radiation, I opted to continue expectant management. She had had surveillance brain MRI on 07/28/2020. It showed a few small foci of restricted diffusion in the left frontal white matter and left parasagittal occipital lobe with associated enhancement. There was a small amount of associated edema with the left occipital lesion. Findings were felt to be due to either small subacute infarcts or metastatic disease. Short-term interval follow-up was recommended. Repeat chest CT on 07/28/2020 reported slight increase in pleural-based nodules in the anterior right middle lobe measuring 8 mm compared to 8 mm in May. An additional pleural-based right lower lobe nodule measured 11 mm, noted to have mild interval progression. There was no increase in size of lymph nodes with the largest measuring 9 mm at the left hilum. Her other medical illnesses, in addition to the breast cancer, include COPD, hypertension, hyperlipidemia, peripheral arterial disease, degenerative disease of the spine, and osteoporosis. She has a history of hepatitis. She has a history of smoking 1/2 pack of cigarettes daily for 50 years. She has cut down to 2 or 3 cigarettes/day. INTERIM HISTORY: On her followup brain MRI on 08/30/2020 the enhancing lesion in the left frontal lobe subcortical white matter was noted to be slightly larger measuring 7.4 mm. The left posterior occipital lobe lesion at 7 mm was not significantly changed in size, appearance consistent with infarct. A new area of restricted diffusion with slight enhancement was noted in the posterior left frontal lobe cortex. A right frontal lobe enhancement measured 3 mm. Overall, the findings were felt to be suspicious for metastatic sites. She then had repeat brain MRI on 10/22/2020. That study showed several enhancing lesions which were felt to be consistent with metastatic disease including a posterior right frontal lobe lesion with maximum diameter of 9 mm, increased from 3 mm on the prior study. An additional new enhancing nodule was noted in the posterior right frontal cortex measuring 5 mm. A left frontal subcortical white matter lesion measuring 10 x 14 mm had increased from 7.4 mm and an additional peripheral enhancing irregular lesion in left occipital lobe measured 11 mm, increased from 7 mm on the prior study. With those findings, she was referred to Dr. Bailey. She then underwent SRS to the right frontal lobe lesion on 11/10/2020, to the left occipital lesion on 11/12/2020, and to the left frontal lesion on 11/15/2020, all sites to a dosage of [address] on 12/07/2020 showed unchanged pleural-based nodule in the right lower lobe measuring 10 mm. A pleural-based nodule in the right middle lobe anteriorly measuring 14 mm also appeared unchanged. There were 2 tiny adjacent subpleural nodules measuring 5 mm and 3.7 mm which appeared more prominent. There is no mediastinal or hilar lymphadenopathy or other evidence of metastatic disease. There were advanced chronic emphysematous changes. Repeat brain MRI on 01/17/2021 showed significant decrease in the size and number of metastatic brain lesions. Only 2 lesions were identified, the largest in the left frontal lobe measuring 6 mm. There were no new lesions identified. Repeat chest CT on 03/10/2021 showed a slight increase in the right lower lobe pleural nodule measuring 15 mm compared to 10 mm on the prior study. Right upper lobe pleural nodules anteriorly appeared stable to slightly more prominent. There was no mediastinal or hilar adenopathy noted. Repeat head MRI on 05/03/2021 showed resolution of previously described subcentimeter metastatic lesions but with development of 2 new metastatic lesions, one in the left postcentral gyrus measuring 5 mm and the other in the left occipital lobe cortex measuring 4 mm. She is seen for a follow-up visit. She says she has been feeling pretty good. She has limited activity tolerance, and she does tire out by afternoon or evening. She is able to do light work. ECOG score is 1. She has good appetite. She has not had fever. She sometimes has sweating at night. She tends to have sinus/nasal congestion when she wakes up in the morning and she sometimes has sore throat. She has cough productive of greenish or yellow phlegm and she has shortness of breath with activity. She has sharp pain in the right lower chest area, particularly when she sleeps on her right side. She had some vomiting yesterday, but she thinks that may have been due to her antibiotic. She has no other GI complaints. She recently had urinary tract infection, but that also is improving. She has normal muscle aches. She sometimes has mild headache. She has no focal neurologic symptoms. Medications: amLODIPine Besylate 1 Tablet (of 5 mg) Tablet Oral daily, Aspirin 1 Tablet (of 325 mg) Oral daily, Bactrim DS 1 Tablet Oral b.i.d., Chantix 1 (1 mg) Tablet Oral b.i.d., Protonix 1 Tablet (of 40 mg) Tablet, enteric coated Oral daily, Sertraline HCl 1 Tablet (of 100 mg) Oral daily, Simvastatin 1 Tablet (of 10 mg) Oral daily, Stiolto Respimat Aerosol, solution Inhalation, Toprol XL 2 Tablet (of 50 mg) Tablet SR 24 HR Oral daily, traMADol HCl (50 mg) Tablet Oral Take as Directed Allergies: DULoxetine HCl and FLUoxetine HCl. Vital Signs: Performed on May 06, 2021 11:08 Height - 65.00 in Weight - 126.2 lbs Temperature - 97.7 F Pulse - 67 /min Respiration - 16 /min BP - 106/69 mm(hg) O2 Sat - 98 % Pain - 0 Fatigue - 3 Performed on May 06, 2021 11:08 BMI - 21.001 kg/m2 Performed on May 06, 2021 11:07 Height - 65.00 in Weight - 126.2 lbs (LOW) BSA - 1.63 sq.m BMI - 21.00 Temperature - 97.7 F (LOW) Pulse - 67 /min Respiration - 16 /min BP - 106/69 mm(hg) O2 Sat - 98 % Pain - 0 Fatigue - 3 Physical Examination: Constitutional - She looks pretty good generally, Eyes - Sclerae nonicteric. Conjunctivae clear, ENMT - No lesions noted in the oral cavity, Hematologic/Lymphatic - No cervical, clavicular, or axillary adenopathy, Respiratory - Lungs sound clear with dimninished air movement bilaterally, Cardiovascular - Heart rhythm is regular. There is no murmur, gallop, or rub noted, Abdomen - Soft. Liver and spleen are not enlarged. There is no abdominal mass or ascites noted and there is no inguinal adenopathy, Extremities - No edema, Neurologic - No focal neurologic deficits noted. Lab/Imaging: CBC shows hemoglobin of 15.0 g, white blood cell count 9200, and platelet count 257,000. Comprehensive metabolic profile shows a slight decline in her renal function with BUN 20 and creatinine 1.2 mg/dL. Bilirubin and liver enzymes are normal. Problem List: 1. Small cell lung cancer of the right lung, by clinical evaluation stage IIIA (T4, N1, M0) At initial diagnosis in June 2019. She had subsequent progression to stage IVB (M1c). 2. 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 There has been no evidence of recurrence. 3. COPD. 4. Hypertension. 5. Hyperlipidemia. 6. Peripheral arterial disease. 7. Degenerative arthritis/degenerative disease of the spine. 8. Osteoporosis. 9. History of hepatitis. Problems Addressed with this Encounter and Plan: Patient with small cell lung cancer of the right lung, initially TNM stage IIIA (T4, N1, M0) by clinical evaluation, diagnosed by bronchoscopy/EBUS in June 2019. Treatment included 4 cycles of cisplatin/etoposide chemotherapy administered from July through September 2019. She was given radiation concurrently, beginning with cycle 2. Radiation was completed on 10/10/2019 to a total dose of 6000 cGy. She tolerated the treatment well, and she appeared to have a good response by follow-up chest CT scan, though with development of significant treatment related opacities in the right middle and lower lobes. Her CT scans in May continued to show significant opacities. I did review the scans independently with the patient, and there did appear to be some improvement compared to the January CT scan, but there were still very significant pulmonary parenchymal opacities in the right lung which were new compared to the pretreatment CT scan. These were presumed to be radiation related. On her repeat chest CT on 07/28/2020 the pleural-based nodule in the anterior right middle lobe was noted to have increased to 14 mm compared to 8 mm in May, suspicious for metastasis. Her brain MRI at that time showed new small lesions in the left frontal lobe and left occipital lobe and on her follow-up MRI on 08/30/2020 the left frontal lobe lesion had increased slightly. There were new small lesions noted in the posterior left frontal lobe and in the right frontal lobe. These were felt to be suspicious for metastatic lesions. Repeat brain MRI on 10/22/2020 showed several enhancing lesions which were felt to be consistent with metastatic disease including 2 posterior right frontal lobe lesions, a left frontal subcortical white matter lesion, and a left occipital lobe lesion. As such her disease had progressed to stage IVB (M1c) and with those findings she was referred to Dr. Bailey for palliative radiation. She underwent SRS to all 4 sites, each to a dosage of 2400 cGy. She tolerated the radiation very well. Her restaging chest CT on 12/07/2020 showed no evidence of disease progression. There was significant improvement noted on her followup brain MRI on 01/17/2021. However, her repeat chest CT on 03/10/2021 showed a slight increase in the right lower lobe pleural nodule. Her repeat head MRI on 05/03/2021 showed resolution of the previously treated brain lesions, but with development of 2 new small lesions, one in the left postcentral gyrus measuring 5 mm and the other in the left occipital lobe cortex measuring 4 mm. Her overall clinical status appears stable. As such, she will now have restaging CT scans of the chest, abdomen, and pelvis. Depending on the findings, we will consider additional radiation for the metastatic brain lesions, and she will have further systemic therapy as indicated. Signed By: Cedric Arango M.D. <<Signature on File>>
== END 2021-05-06 06:40 | disposition home or self-care (01) ==
PROVIDERS: Absent Provider Radiology Radiation Oncology; PCP Family Medicine; Visit Provider Internal Medicine Medical Oncology
DX: C34.90 Malignant neoplasm of unspecified part of unspecified bronchus or lung (principal); F17.200 Nicotine dependence, unspecified, uncomplicated; J44.9 Chronic obstructive pulmonary disease, unspecified; I10 Essential (primary) hypertension; E78.5 Hyperlipidemia, unspecified; I73.9 Peripheral vascular disease, unspecified; M47.9 Spondylosis, unspecified; M81.0 Age-related osteoporosis without current pathological fracture; Z86.19 Personal history of other infectious and parasitic diseases; G93.89 Other specified disorders of brain
CPT/HCPCS: 99214; 99215

== ENCOUNTER 2021-05-23 15:02 | Outpatient (CLI) | payer MEDICARE, SELFPAY | END 2021-05-23 15:03 | disposition home or self-care (01) | LOC: ONCMED 15:05 | PROVIDERS: PCP Family Medicine; Visit Provider Internal Medicine Medical Oncology | DX: C34.11 Malignant neoplasm of upper lobe, right bronchus or lung (principal); C79.31 Secondary malignant neoplasm of brain | CPT/HCPCS: 36591 ==

== ENCOUNTER 2021-05-31 14:01 | Outpatient (CLI) | payer MEDICARE, SELFPAY ==
--- NOTE | 2021-05-31 | CT_ITS ---
WS: [id number] CT CHEST, ABDOMEN AND PELVIS WITH CONTRAST. HISTORY: RUL MALIGNANT NEOPLASM, SECONDARY NEOPLASM BRAIN TECHNIQUE: Contiguous 5 mm axial imaging performed through the chest, abdomen and pelvis with IV cont rast, oral contrast has been provided. Coronal and sagittal reformats chest. Coronal and sagittal ref ormats through the abdomen and pelvis. All CT scans at [facility] use at least one of these d ose optimization techniques: automated exposure control; mA and/or kV adjustment per patient size (in cludes targeted exams where dose is matched to clinical indication); or iterative reconstruction. CONTRAST: Visipaque 320; 95 mL IV. DLP: 1621.11 mGycm COMPARISON: 03/10/[address]: Progression of pleural thickening and nodularity within the RIGHT thorax since the prior st udy. Largest area of progression in the anterior lateral lower thorax involving the RIGHT middle lobe . Nodularity extends over length of 4.3 cm with a diameter of 1.0 cm. The pleural thickening describe d in the RIGHT lower lobe is very slightly progressed since the prior study with a maximum measuremen t of 3.2 x 2.0 cm. Soft tissue tumor enhancement encases the adjacent rib and extends external to the visceral pleura. There is extensive advanced emphysematous disease throughout both lungs. Bronchial wall thickening and bronchiectasis in the RIGHT upper, middle and lower lobes. Mildly enlarged lymph node measuring 9 mm high RIGHT paratracheal. There is additional bilateral cent ral pleural thickening at the hilar regions. Mildly prominent but unchanged subcarinal lymph node at 10 mm. Heart is not enlarged. No pericardial or pleural effusion. Abdomen CT: Prior cholecystectomy. No bile duct dilatation. No metastatic disease within the liver. S pleen and pancreas are negative. No adrenal mass. Cortical scars in each kidney. No hydronephrosis. L arge cyst RIGHT kidney measures 4.7 cm. Mild atherosclerosis of aorta. No ascites or adenopathy. Moderate diffuse fecal retention. No GI tract obstruction. Pelvic CT: Well-distended urinary bladder. No free fluid. No adenopathy. CT/CT chest abd pel w con* IMPRESSION: 1. Progression of pleural nodularity and thickening in the RIGHT thorax. Suspi cious for progression of pleural metastatic nodules. 10th rib posterior lateral ly is being encased by tumor. 2. Severe chronic emphysema. 3. Indeterminate high RIGHT paratracheal lymph node with bilateral bronchovas cular thickening at the hilar regions. Not significantly changed. Recommend fol low-up PET/CT imaging. 4. No metastatic disease to the liver or adrenal glands.
[2021-05-31] MEDS: iodixanol 320 mg/mL 100mL Btl IV (15:28)
[2021-05-31] MEDS: iohexol 300 mg/mL 50 mL Btl PO (15:31)
== END 2021-05-31 14:02 | disposition home or self-care (01) ==
PROVIDERS: PCP Family Medicine; Visit Provider Internal Medicine Medical Oncology
DX: C34.11 Malignant neoplasm of upper lobe, right bronchus or lung (principal); C79.31 Secondary malignant neoplasm of brain; J43.9 Emphysema, unspecified
CPT/HCPCS: 71260; 74177; Q9967

== ENCOUNTER 2021-06-16 06:36 | Outpatient (RCR) | payer MEDICARE, SELFPAY ==
--- NOTE | 2021-06-03 10:55 | ONC FU_ITS ---
Dr. Arango Patient Follow-Up Note Patient: Anneliese Garcia Unit #: [id number]: 1945 Dicatated By: Cedric Arango M.D.Date of Visit:Jun 03, 2021 Onc Med Follow-up/Prog Note Chief Complaint: Lung cancer. History of Present Illness: This is a 75 year-old woman with small cell lung cancer, by clinical evaluation stage IIIA (T4, N1, M0) at initial diagnosis in June 2019. She had subsequent progression to stage IVB (M1c). She has a history of having undergone lumpectomy/axillary lymph node sampling and radiation for grade I invasive ductal carcinoma of the left breast, stage IA (T1b, N0, M0), ER/DC positive and HER-2/franco negative. She completed radiation in January 2003. She had only brief adjuvant hormonal therapy, stopped at 6 months due to side effects. She has had no evidence of recurrence. She had presented to Dr. Brown with shortness of breath. Her pulmonary function studies in March 2019 showed normal spirometry with severely reduced diffusion capacity. She was referred to Dr. Basilio. Chest CT on on 06/11/2019 showed moderate centrilobular and paraseptal emphysema. There were several noncalcified pleural-based nodules, the most significant in the right upper lobe measuring 10 mm. The findings were suspicious for neoplasm. There was no mediastinal or hilar adenopathy noted. Further evaluation with PET/CT on 06/28/2019 showed a 1.2 cm subpleural nodule in the right upper lobe with SUV 9.8, consistent with a primary lung carcinoma. A 2 cm right upper lobe hilar node had SUV 10.9, consistent with local metastatic disease. An FDG positive pleural-based plaque in the lateral right middle lobe had SUV 8.2, consistent with metastatic disease. On 07/11/2019 she underwent bronchoscopy with EBUS and FNA biopsy of the right hilar lymph node. There was no endobronchial lesion identified and the bronchial washings were nondiagnostic. The FNA biopsy showed numerous cohesive groups of malignant cells with high N/C ratios and neuroendocrine type chromatin, ultimately confirmed to be consistent with small cell carcinoma. I had seen her initially on 07/29/2019. With 2 isolated lung lesions and right hilar node involvement, I was unsure if she was appropriate for concurrent chemoradiation. I opted to have her start chemotherapy with cisplatin/etoposide pending consultation with the radiation oncologist. Ultimately, it was recommended that she proceed with combined therapy beginning with cycle 2 of chemotherapy. Her staging brain MRI on 08/06/2019 showed no evidence of metastatic disease. She began cycle 1 of cisplatin/etoposide chemotherapy on 08/11/2019. She tolerated it without acute toxicity. At day 15 she was severely neutropenic, ANC 400. She was not febrile, and she recovered following treatment with Neupogen. She continued with cycle 2 on 09/01/2019 with the dosages reduced by 10%. At that time she also began concurrent radiation. She continued to have significant fatigue with the treatment, but she otherwise tolerated it pretty well. She continued with cycle 3 of cisplatin/etoposide on 09/24/2019. She completed radiation on 10/10/2019 to a total dose of 6000 cGy. She then continued with her 4th cycle of chemotherapy on 10/15/2019. Restaging chest CT on 11/10/2019 showed improvement in the subpleural right upper lobe nodule measuring 6 mm compared to 9 to 10 mm on the previous studies. The small right middle lobe lesion had resolved. The right hilar lymph node had decreased to 7 mm compared to 2.0 cm. There was no mediastinal adenopathy noted. With those findings I opted to follow her on observation/expectant management. Her chest CT on 02/10/2020 showed complete resolution of subpleural right upper lobe nodule but with progression of right multilobar sub-solid opacifications compared to the October 2019 study. The reported differential included pneumonitis, post therapeutic response to radiation, or new metastatic disease. There was no significant change in the right hilar lymph node measuring 9 mm. Additional subcentimeter mediastinal and hilar lymph nodes appeared slightly more prominent. There was severe underlying emphysema. There was no evidence of other metastatic disease. Her repeat brain MRI showed no evidence of metastatic disease. Given those findings, she continued on observation/expectant management. Repeat chest CT on 05/24/2020 reported semisolid opacities in the right middle lobe and right lower lobe which were noted to have improved compared to the prior study in January. These appear to be most likely treatment related. Right lower lobe airspace infiltrates also were noted to have improved. A subpleural nodularity in the right upper lobe appeared unchanged and there was no progressed mediastinal or hilar lymphadenopathy. A new soft tissue chest wall/pleural nodule was noted in the right lower lobe anteriorly adjacent to the sixth rib. It measured 8 mm and the appearance was suspicious for metastatic disease. However, as the changes appear to be mostly due to radiation, I opted to continue expectant management. She had had surveillance brain MRI on 07/28/2020. It showed a few small foci of restricted diffusion in the left frontal white matter and left parasagittal occipital lobe with associated enhancement. There was a small amount of associated edema with the left occipital lesion. Findings were felt to be due to either small subacute infarcts or metastatic disease. Short-term interval follow-up was recommended. Repeat chest CT on 07/28/2020 reported slight increase in pleural-based nodules in the anterior right middle lobe measuring 8 mm compared to 8 mm in May. An additional pleural-based right lower lobe nodule measured 11 mm, noted to have mild interval progression. There was no increase in size of lymph nodes with the largest measuring 9 mm at the left hilum. Her other medical illnesses, in addition to the breast cancer, include COPD, hypertension, hyperlipidemia, peripheral arterial disease, degenerative disease of the spine, and osteoporosis. She has a history of hepatitis. She has a history of smoking 1/2 pack of cigarettes daily for 50 years. She has cut down to 2 or 3 cigarettes/day. INTERIM HISTORY: On her followup brain MRI on 08/30/2020 the enhancing lesion in the left frontal lobe subcortical white matter was noted to be slightly larger measuring 7.4 mm. The left posterior occipital lobe lesion at 7 mm was not significantly changed in size, appearance consistent with infarct. A new area of restricted diffusion with slight enhancement was noted in the posterior left frontal lobe cortex. A right frontal lobe enhancement measured 3 mm. Overall, the findings were felt to be suspicious for metastatic sites. She then had repeat brain MRI on 10/22/2020. That study showed several enhancing lesions which were felt to be consistent with metastatic disease including a posterior right frontal lobe lesion with maximum diameter of 9 mm, increased from 3 mm on the prior study. An additional new enhancing nodule was noted in the posterior right frontal cortex measuring 5 mm. A left frontal subcortical white matter lesion measuring 10 x 14 mm had increased from 7.4 mm and an additional peripheral enhancing irregular lesion in left occipital lobe measured 11 mm, increased from 7 mm on the prior study. With those findings, she was referred to Dr. Bailey. She then underwent SRS to the right frontal lobe lesion on 11/10/2020, to the left occipital lesion on 11/12/2020, and to the left frontal lesion on 11/15/2020, all sites to a dosage of [address] on 12/07/2020 showed unchanged pleural-based nodule in the right lower lobe measuring 10 mm. A pleural-based nodule in the right middle lobe anteriorly measuring 14 mm also appeared unchanged. There were 2 tiny adjacent subpleural nodules measuring 5 mm and 3.7 mm which appeared more prominent. There is no mediastinal or hilar lymphadenopathy or other evidence of metastatic disease. There were advanced chronic emphysematous changes. Repeat brain MRI on 01/17/2021 showed significant decrease in the size and number of metastatic brain lesions. Only 2 lesions were identified, the largest in the left frontal lobe measuring 6 mm. There were no new lesions identified. Repeat chest CT on 03/10/2021 showed a slight increase in the right lower lobe pleural nodule measuring 15 mm compared to 10 mm on the prior study. Right upper lobe pleural nodules anteriorly appeared stable to slightly more prominent. There was no mediastinal or hilar adenopathy noted. Repeat head MRI on 05/03/2021 showed resolution of previously described subcentimeter metastatic lesions but with development of 2 new metastatic lesions, one in the left postcentral gyrus measuring 5 mm and the other in the left occipital lobe cortex measuring [address] scans of the chest, abdomen, and pelvis on 05/31/2021 showed progression of pleural thickening and nodularity within the right thorax compared to the study from February 2021. The largest area of progression was in the anterior lateral lower thorax involving the right middle lobe with the nodularity noted to extend over a length of 4.3 cm with a diameter of 1.0 cm. There was slight progression of the right lower lobe pleural thickening measuring 3.2 x 2.0 cm. Soft tissue tumor enhancement was noted to encase the adjacent rib and extend externally to the visceral pleura. Also noted was extensive advanced emphysematous disease throughout both lungs. A mildly enlarged lymph node measuring 9 mm was noted in the high right paratracheal area. A mildly prominent subcarinal lymph node measuring 10 mm. Unchanged. There was no evidence of metastatic disease in the abdomen/pelvis. She is seen for a follow-up visit. She says she is okay, but she does complain that her energy has been dwindling. She is still doing light work. ECOG score is 1. Appetite also has been dwindling. She says she is just not hungry. Her weight, though, is stable. She does not have fever. She sometimes has sweating, mostly during the daytime. She complains that her tongue is sometimes tender. She continues to have cough productive of thick mucus. She is short of breath with activity. She is having pain in the right lower chest/rib cage, mostly lateral and posterior. She currently has no GI complaints. She says her urination has slowed down. She has no other joint or bone pain. She occasionally wakes up in the morning with a headache. She does have some dizziness/dysequilibrium. She has no numbness/paresthesia or other focal neurologic symptoms. Medications: amLODIPine Besylate 1 Tablet (of 5 mg) Tablet Oral daily, Aspirin 1 Tablet (of 325 mg) Oral daily, Bactrim DS 1 Tablet Oral b.i.d., Chantix 1 (1 mg) Tablet Oral b.i.d., Protonix 1 Tablet (of 40 mg) Tablet, enteric coated Oral daily, Sertraline HCl 1 Tablet (of 100 mg) Oral daily, Simvastatin 1 Tablet (of 10 mg) Oral daily, Stiolto Respimat Aerosol, solution Inhalation, Toprol XL 2 Tablet (of 50 mg) Tablet SR 24 HR Oral daily, traMADol HCl (50 mg) Tablet Oral Take as Directed Allergies: DULoxetine HCl and FLUoxetine HCl. Vital Signs: Performed on Jun 03, 2021 08:51 Height - 65.00 in Weight - 128.4 lbs (HIGH) BSA - 1.64 sq.m BMI - 21.37 Temperature - 98 F (LOW) Pulse - 71 /min Respiration - 20 /min BP - 116/74 mm(hg) O2 Sat - 89 % (LOW) Pain - 0 Fatigue - 0 Physical Examination: Constitutional - She looks pretty good generally, Eyes - Sclerae nonicteric. Conjunctivae clear, ENMT - Mouth looks dry. There are no lesions noted in the oral cavity, Hematologic/Lymphatic - No cervical, clavicular, or axillary adenopathy, Respiratory - Lungs sound clear with dimninished air movement bilaterally, Cardiovascular - Heart rhythm is regular. There is no murmur, gallop, or rub noted, Chest - There is tenderness in the lower right rib cage, laterally and posteriorly, Abdomen - Soft. Liver and spleen are not enlarged. There is no abdominal mass or ascites noted and there is no inguinal adenopathy, Extremities - No edema, Neurologic - No focal neurologic deficits noted. Lab/Imaging: Test performed on May 05, 2021 12:45 Sodium 134 mmol/L Potassium 4.8 mmol/L Chloride 100 mmol/L CO2 20 mmol/L Anion Gap 18.8 BUN 20 mg/dL Creatinine 1.2 mg/dL Cr Clearance (Est) 37.73 mL/min Glucose 87 mg/dL Osmolality - Calculated 280 mOsm/kg Calcium 8.6 mg/dL Protein, Total 6.6 g/dL Albumin 3.8 g/dL Globulin 2.8 g/dL Bilirubin, Total 0.2 mg/dL ALT (SGPT) 10 U/L AST (SGOT) 14 U/L Alkaline Phosphatase 99 IU/L WBC 9.2 10 3/uL RBC 4.92 10 6/uL HGB 15.0 g/dL HCT 45.5 % MCV 92.5 fl MCH 30.5 pg MCHC 33.0 g/dL RDW 14.1 % Platelet Count 257 10 3/cmm MPV 8.6 fL Neutrophils 6.05 10 3/uL Lymphocytes 2.0 10 3/uL Monocytes 0.7 10 3/uL Eosinophils 0.3 10 3/uL Basophils 0.0 10 3/uL Neutrophil % 65.7 % Lymphocyte % 22.1 % Monocyte % 7.7 % Eosinophil % 3.4 % Basophils % 0.4 % NRBC % 0 % Problem List: 1. Small cell lung cancer of the right lung, by clinical evaluation stage IIIA (T4, N1, M0) At initial diagnosis in June 2019. She had subsequent progression to stage IVB (M1c). 2. She has a history of having undergone lumpectomy/axillary lymph node sampling and radiation for grade I invasive ductal carcinoma of the left breast, stage IA (T1b, N0, M0), ER/DC positive and HER-2/franco negative. There has been no evidence of recurrence. 3. COPD. 4. Hypertension. 5. Hyperlipidemia. 6. Peripheral arterial disease. 7. Degenerative arthritis/degenerative disease of the spine. 8. Osteoporosis. 9. History of hepatitis. Problems Addressed with this Encounter and Plan: Patient with small cell lung cancer of the right lung, initially TNM stage IIIA (T4, N1, M0) by clinical evaluation, diagnosed by bronchoscopy/EBUS in June 2019. Treatment included 4 cycles of cisplatin/etoposide chemotherapy administered from July through September 2019. She was given radiation concurrently, beginning with cycle 2. Radiation was completed on 10/10/2019 to a total dose of 6000 cGy. She tolerated the treatment well, and she appeared to have a good response by follow-up chest CT scan, though with development of significant treatment related opacities in the right middle and lower lobes. Her CT scans in May continued to show significant opacities. I did review the scans independently with the patient, and there did appear to be some improvement compared to the January CT scan, but there were still very significant pulmonary parenchymal opacities in the right lung which were new compared to the pretreatment CT scan. These were presumed to be radiation related. On her repeat chest CT on 07/28/2020 the pleural-based nodule in the anterior right middle lobe was noted to have increased to 14 mm compared to 8 mm in May, suspicious for metastasis. Her brain MRI at that time showed new small lesions in the left frontal lobe and left occipital lobe and on her follow-up MRI on 08/30/2020 the left frontal lobe lesion had increased slightly. There were new small lesions noted in the posterior left frontal lobe and in the right frontal lobe. These were felt to be suspicious for metastatic lesions. Repeat brain MRI on 10/22/2020 showed several enhancing lesions which were felt to be consistent with metastatic disease including 2 posterior right frontal lobe lesions, a left frontal subcortical white matter lesion, and a left occipital lobe lesion. As such her disease had progressed to stage IVB (M1c) and with those findings she was referred to Dr. Bailey for palliative radiation. She underwent SRS to all 4 sites, each to a dosage of 2400 cGy. She tolerated the radiation very well. Her restaging chest CT on 12/07/2020 showed no evidence of disease progression. There was significant improvement noted on her followup brain MRI on 01/17/2021. However, her repeat chest CT on 03/10/2021 showed a slight increase in the right lower lobe pleural nodule. Her repeat head MRI on 05/03/2021 showed resolution of the previously treated brain lesions, but with development of 2 new small lesions, one in the left postcentral gyrus measuring 5 mm and the other in the left occipital lobe cortex measuring [address] scans on 05/31/2021 showed progression of pleural-based nodules in the anterolateral lower thorax involving the right middle lobe and in the posterolateral right lower lobe. On my review of the CT, the described pleural-based lesions are distinct from the lesion that was treated with radiation. The degree of progression since the February study is very slight, but she has having pain in the right rib cage which pretty well correlates with those findings. With minimal progression of the pleural-based disease, I think it is appropriate to treat the brain lesion with SRS, and that treatment will be scheduled for next week. Beyond that, I may opt to continue to follow the pleural-based disease with close surveillance, but I am more inclined to evaluate further with biopsy, as the location and clinical course of that disease has been very atypical for small cell cancer. In the meantime, she will be given a prescription for hydrocodone/APAP to take as needed for pain, I also will get her set up for pulmonary nebulizers. Signed By: Cedric Arango M.D. <<Signature on File>>
--- NOTE | 2021-06-07 | CT_ITS ---
Radiation Therapy Planning CT images; total exam DLP: 668.61 mGy-cm MTDD
--- NOTE | 2021-06-16 15:08 | N.ONRD TS_ITS ---
Stereotactic Radiosurgery Treatment Summary Patient Name: Anneliese Garcia Date of : 1945 Date of Service: 06/16/2021 Attending Physician: Bennie Bailey M.D. Anneliese Garcia has completed stereotactic radiosurgery for the management of small cell lung with brain metastases. An MRI ordered on October 22, 2020 identified several enhancing lesions metastatic disease ???a 9 mm right frontal lobe vertex lesion, a 5 mm right posterior frontal cortex lesion, a 1 cm x 1.4 cm left frontal subcortical white matter lesion, and a 1.1 cm left occipital lobe lesion. SRS was performed on the dates listed: November 01, 2020 - The prescribed dose of 24 Gy was delivered to the right posterior frontal cortex lesion in one fraction. November 10, 2020 - The prescribed dose of 24 Gy was delivered to the right vertex lesion in one fraction. November 12, 2020 - The prescribed dose of 24 Gy was delivered to the left occipital lobe lesion in one fraction. November 15, 2020 - The prescribed dose of 24 Gy was delivered to the left frontal lobe lesion in one fraction. An MRI acquired on May 03, 2021 confirmed resolution of the prior lesions, but described two new metastatic deposits: a 5 mm left post-central gyral lesion and a 4 mm left occipital lobe lesion. SRS was performed on June 16, 2021. A prescribed dose of 24 Gy was delivered to the left post-central gyrus and 24 Gy was administered to the left occipital lesion. The left occipital lesion was treated utilizing and intensity modulated radiotherapy plan with a step and shoot treatment technique. The plan required six coplanar rodarte and two non-coplanar ports. The coplanar rodarte were designed with gantry angles of 40???, 70???, 100???, 130???, 160???, and 190??? and a collimator rotation of 0???. The minimum field size was 2.6 cm x 1.5 cm to a maximum of 2.8 cm x 1.5 cm. The planned SSD measured between 95 cm to 98.1 cm. The delivered monitor units for the referenced gantry angles were 688 MU, 848 MU, 799 MU, 350 MU, 445 MU, and 404 MU. An additional two non-coplanar ports were arranged with gantry angles of 210???, and 240??? with a collimator rotation of 0??? and a table angle of 85???. The non-coplanar portal rodarte measured 2.8 cm x 1.5 cm with SSD measurements of 97.1 cm and 96.4 cm. The non-coplanar ports administered 448 MU and 768 MU, The left post-central gyral metastasis was treated utilizing and intensity modulated radiotherapy plan with a step and shoot treatment technique. The plan required six coplanar rodarte and three non-coplanar ports. The coplanar rodarte were designed with gantry angles of 60???, 80???, 100???, 130???, 160???, and 190??? and a collimator rotation of 0???. The minimum field size was 2.4 cm x 2 cm to a maximum of 2.8 cm x 2.8 cm. The planned SSD measured between 94.3 cm to 95.5 cm. The delivered monitor units for the referenced gantry angles were 804 MU, 828 MU, 816 MU, 316 MU, 428 MU, and 504 MU. An additional three non-coplanar ports were arranged with gantry angles of 200???, 220??? and 240???, respectively with a collimator rotation of 0??? and a table angle of 85???. The non-coplanar portal rodarte measured a minimum of 2.6 cm x 2 cm to a maximum of 2.8 cm x 2 cm with SSD measurements spanning from 95.4 cm to 95.9 cm. The non-coplanar ports administered 688 MU, 956 MU, and 856 MU, respectively. All treatments were performed with the APSX linear accelerator and an isocentric technique. The dose was calculated by Anisotropic Analytic Algorithm. Low energy photons were prescribed with the each plan normalized to deliver 100% of the prescription dose to 99.9% of the planning target volume. Signed by: Dr. Bennie Bailey 06/16/2021 3:07:19 PM
--- NOTE | 2021-06-16 15:27 | ONCRAD TMN_ITS ---
Stereotactic Radiosurgery Treatment Management Note Patient Name: Anneliese Garcia Date of : 1945 Date of Service: 06/16/2021 Attending Physician: Bennie Bailey M.D. Anneliese Garcia is a 75 year-old white female diagnosed small cell lung cancer in June 2019. An MRI ordered on October 22, 2020 for continued advertency of questionable abnormalities identified several enhancing lesions metastatic disease ???a 9 mm right frontal lobe vertex lesion, a 5 mm right posterior frontal cortex lesion, a 1 cm x 1.4 cm left frontal subcortical white matter lesion, and a 1.1 cm left occipital lobe lesion. SRS was performed on the dates listed: November 01, 2020 - The prescribed dose of 24 Gy was delivered to the right posterior frontal cortex lesion in one fraction. November 10, 2020 - The prescribed dose of 24 Gy was delivered to the right vertex lesion in one fraction. November 12, 2020 - The prescribed dose of 24 Gy was delivered to the left occipital lobe lesion in one fraction. November 15, 2020 - The prescribed dose of 24 Gy was delivered to the left frontal lobe lesion in one fraction. An MRI acquired on May 03, 2021 confirmed resolution of the prior lesions, but described two new metastatic deposits: a 5 mm left post-central gyral lesion and a 4 mm left occipital lobe lesion. The patient has received 24 Gy of a prescribed 24 Gy treated with an intensity modulated radiotherapy pain delivered utilizing stereotactic radiosurgery to the left post-central gyral and left occipital lobe lesions. Upon review of systems, she denied any neurological complaints. On physical examination, the patient weighed 117 lbs. Her temperature was 97.7 ???F and the blood pressure was 117/71 mmHg. Her pulse was 63 bpm and the respiratory rate was 20. Cranial nerves were intact. SRS to the left post-central gyral and left occipital lobe metastatic deposits were completed today. She will return for routine post-SRS surveillance as scheduled. Signed by: Dr. Bennie Bailey 06/16/2021 3:26:55 PM
== END 2021-06-20 23:59 | disposition home or self-care (01) ==
LOC: ONCMED 06:36
PROVIDERS: PCP Family Medicine; Visit Provider Radiology Radiation Oncology
DX: Z51.0 Encounter for antineoplastic radiation therapy (principal); C34.01 Malignant neoplasm of right main bronchus; C79.31 Secondary malignant neoplasm of brain; J44.9 Chronic obstructive pulmonary disease, unspecified; I10 Essential (primary) hypertension; E78.5 Hyperlipidemia, unspecified; I73.9 Peripheral vascular disease, unspecified; M19.90 Unspecified osteoarthritis, unspecified site; M47.9 Spondylosis, unspecified; M81.0 Age-related osteoporosis without current pathological fracture; Z86.19 Personal history of other infectious and parasitic diseases; Z85.3 Personal history of malignant neoplasm of breast; Z92.3 Personal history of irradiation; Z79.899 Other long term (current) drug therapy
CPT/HCPCS: 77300; 77301; 77334; 77338; 77372; 77470; 99215

== ENCOUNTER 2021-06-27 15:17 | Outpatient (RCR) | payer MEDICARE, SELFPAY ==
--- NOTE | 2021-06-27 18:00 | ONC FU_ITS ---
Dr. Arango Patient Follow-Up Note Patient: Anneliese Garcia Unit #: [id number]: 1945 Dicatated By: Cedric Arango M.D.Date of Visit:Jun 27, 2021 Onc Med Follow-up/Prog Note Chief Complaint: Lung cancer. History of Present Illness: This is a 75 year-old woman with small cell lung cancer, by clinical evaluation stage IIIA (T4, N1, M0) at initial diagnosis in June 2019. She had subsequent progression to stage IVB (M1c). 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 She completed radiation in January 2003. She had only brief adjuvant hormonal therapy, stopped at 6 months due to side effects. She has had no evidence of recurrence. In May 2019 she was found on chest CT to have several noncalcified pleural-based nodules, the most significant in the right upper lobe measuring 10 mm. The findings were suspicious for neoplasm. There was no mediastinal or hilar adenopathy noted. Further evaluation with PET/CT on 06/28/2019 showed a 1.2 cm subpleural nodule in the right upper lobe with SUV 9.8, consistent with a primary lung carcinoma. A 2 cm right upper lobe hilar node had SUV 10.9, consistent with local metastatic disease. An FDG positive pleural-based plaque in the lateral right middle lobe had SUV 8.2, consistent with metastatic disease. On 07/11/2019 she underwent bronchoscopy with EBUS and FNA biopsy of the right hilar lymph node. There was no endobronchial lesion identified and the bronchial washings were nondiagnostic. The FNA biopsy showed numerous cohesive groups of malignant cells with high N/C ratios and neuroendocrine type chromatin, ultimately confirmed to be consistent with small cell carcinoma. I had seen her initially on 07/29/2019. With 2 isolated lung lesions and right hilar node involvement, I was unsure if she was appropriate for concurrent chemoradiation. I opted to have her start chemotherapy pending consultation with the radiation oncologist. Her staging brain MRI on 08/06/2019 showed no evidence of metastatic disease. She began cycle 1 of cisplatin/etoposide chemotherapy on 08/11/2019. She tolerated it without acute toxicity. At day 15 she was severely neutropenic, ANC 400. She was not febrile, and she recovered following treatment with Neupogen. Following radiation oncology consultation, she decision was made to proceed with combined modality therapy. She continued with cycle 2 on 09/01/2019 with the dosages reduced by 10%. At that time she also began concurrent radiation. She continued to have significant fatigue with the treatment, but she otherwise tolerated it pretty well. She continued with cycle 3 of cisplatin/etoposide on 09/24/2019. She completed radiation on 10/10/2019 to a total dose of 6000 cGy, and she then continued with her 4th cycle of chemotherapy on 10/15/2019. Restaging chest CT on 11/10/2019 showed improvement in the subpleural right upper lobe nodule measuring 6 mm compared to 9 to 10 mm on the previous studies. The small right middle lobe lesion had resolved. The right hilar lymph node had decreased to 7 mm compared to 2.0 cm. There was no mediastinal adenopathy noted. With those findings I opted to follow her on observation/expectant management. Her chest CT on 02/10/2020 showed complete resolution of subpleural right upper lobe nodule but with progression of right multilobar sub-solid opacifications compared to the October 2019 study. The reported differential included pneumonitis, post therapeutic response to radiation, or new metastatic disease. There was no significant change in the right hilar lymph node measuring 9 mm. Additional subcentimeter mediastinal and hilar lymph nodes appeared slightly more prominent. There was severe underlying emphysema. There was no evidence of other metastatic disease. Her repeat brain MRI showed no evidence of metastatic disease. Given those findings, she continued on observation/expectant management. Repeat chest CT on 05/24/2020 reported semisolid opacities in the right middle lobe and right lower lobe which were noted to have improved compared to the prior study in January. These appear to be most likely treatment related. Right lower lobe airspace infiltrates also were noted to have improved. A subpleural nodularity in the right upper lobe appeared unchanged and there was no progressed mediastinal or hilar lymphadenopathy. A new soft tissue chest wall/pleural nodule was noted in the right lower lobe anteriorly adjacent to the sixth rib. It measured 8 mm and the appearance was suspicious for metastatic disease. However, as the changes appear to be mostly due to radiation, I opted to continue expectant management. She had had surveillance brain MRI on 07/28/2020. It showed a few small foci of restricted diffusion in the left frontal white matter and left parasagittal occipital lobe with associated enhancement. There was a small amount of associated edema with the left occipital lesion. Findings were felt to be due to either small subacute infarcts or metastatic disease. Short-term interval follow-up was recommended. On her followup brain MRI on 08/30/2020 the enhancing lesion in the left frontal lobe subcortical white matter was noted to be slightly larger measuring 7.4 mm. The left posterior occipital lobe lesion at 7 mm was not significantly changed in size, appearance consistent with infarct. A new area of restricted diffusion with slight enhancement was noted in the posterior left frontal lobe cortex. A right frontal lobe enhancement measured 3 mm. Overall, the findings were felt to be suspicious for metastatic sites. She then had repeat brain MRI on 10/22/2020. That study showed several enhancing lesions which were felt to be consistent with metastatic disease including a posterior right frontal lobe lesion with maximum diameter of 9 mm, increased from 3 mm on the prior study. An additional new enhancing nodule was noted in the posterior right frontal cortex measuring 5 mm. A left frontal subcortical white matter lesion measuring 10 x 14 mm had increased from 7.4 mm and an additional peripheral enhancing irregular lesion in left occipital lobe measured 11 mm, increased from 7 mm on the prior study. With those findings, she was referred to Dr. Bailey. She then underwent SRS to the right frontal lobe lesion on 11/10/2020, to the left occipital lesion on 11/12/2020, and to the left frontal lesion on 11/15/2020, all sites to a dosage of [address] on 12/07/2020 showed unchanged pleural-based nodule in the right lower lobe measuring 10 mm. A pleural-based nodule in the right middle lobe anteriorly measuring 14 mm also appeared unchanged. There were 2 tiny adjacent subpleural nodules measuring 5 mm and 3.7 mm which appeared more prominent. There is no mediastinal or hilar lymphadenopathy or other evidence of metastatic disease. There were advanced chronic emphysematous changes. Repeat brain MRI on 01/17/2021 showed significant decrease in the size and number of metastatic brain lesions. Only 2 lesions were identified, the largest in the left frontal lobe measuring 6 mm. There were no new lesions identified. Repeat chest CT on 03/10/2021 showed a slight increase in the right lower lobe pleural nodule measuring 15 mm compared to 10 mm on the prior study. Right upper lobe pleural nodules anteriorly appeared stable to slightly more prominent. There was no mediastinal or hilar adenopathy noted. Repeat head MRI on 05/03/2021 showed resolution of previously described subcentimeter metastatic lesions but with development of 2 new metastatic lesions, one in the left postcentral gyrus measuring 5 mm and the other in the left occipital lobe cortex measuring [address] scans of the chest, abdomen, and pelvis on 05/31/2021 showed progression of pleural thickening and nodularity within the right thorax compared to the study from February 2021. The largest area of progression was in the anterior lateral lower thorax involving the right middle lobe with the nodularity noted to extend over a length of 4.3 cm with a diameter of 1.0 cm. There was slight progression of the right lower lobe pleural thickening measuring 3.2 x 2.0 cm. Soft tissue tumor enhancement was noted to encase the adjacent rib and extend externally to the visceral pleura. Also noted was extensive advanced emphysematous disease throughout both lungs. A mildly enlarged lymph node measuring 9 mm was noted in the high right paratracheal area. A mildly prominent subcarinal lymph node measuring 10 mm. Unchanged. There was no evidence of metastatic disease in the abdomen/pelvis. With those findings, she was recommended to proceed with SRS to the left postcentral gyral and left occipital lobe metastatic lesions. With evidence of progression of the right middle lobe pleural-based lesion, she was also recommended to undergo CT directed biopsy. She completed the SRS on 06/16/2021 to a dose of 2400 cGy to each site. She tolerated the treatment well, and she is scheduled to have the CT directed biopsy tomorrow. Her other medical illnesses, in addition to the breast cancer, include COPD, hypertension, hyperlipidemia, degenerative disease of the spine, osteoporosis, and depression. She has a history of hepatitis. She also has known peripheral arterial disease for which she has undergone iliac artery stent placement. Her other prior surgeries include left breast lumpectomy with axillary lymph node sampling, hysterectomy/bilateral salpingo-oophorectomy, closed reduction for left distal radius fracture, cholecystectomy, and arthroscopic right knee surgery. She has a history of smoking 1/2 pack of cigarettes daily for 50 years. She has cut down to 2 or 3 cigarettes/day. She is seen for a follow-up visit. She has been feeling okay. She continues to have pain in her right chest and in the right mid back, which correlates pretty well with her CT findings. She is getting adequate relief with her current pain medication. Her energy is about the same. She does have some fatigue. ECOG score is 1. Her appetite has been dwindling. Her weight recently has been stable. She has not had fever. She sometimes has sweating at night. She continues to have generalized itching. She has not had sore mouth or throat. She does have some cough and she has shortness of breath with activity. She has not had any typical angina pain. She has no GI or complaints. She has no other joint or bone pain. She does not complain of headache. She sometimes has dizziness. She has no numbness/paresthesia or other focal neurologic symptoms. She does maldonado having some easy bruising. She is not on any type of blood thinner. Medications: amLODIPine Besylate 1 Tablet (of 5 mg) Tablet Oral daily, Aspirin 1 Tablet (of 325 mg) Oral daily, Bactrim DS 1 Tablet Oral b.i.d., Chantix 1 (1 mg) Tablet Oral b.i.d., Protonix 1 Tablet (of 40 mg) Tablet, enteric coated Oral daily, Sertraline HCl 1 Tablet (of 100 mg) Oral daily, Simvastatin 1 Tablet (of 10 mg) Oral daily, Stiolto Respimat Aerosol, solution Inhalation, Toprol XL 2 Tablet (of 50 mg) Tablet SR 24 HR Oral daily, traMADol HCl (50 mg) Tablet Oral Take as Directed Allergies: DULoxetine HCl and FLUoxetine HCl. Vital Signs: Performed on Jun 27, 2021 15:59 Height - 65.00 in Weight - 128.6 lbs (HIGH) BSA - 1.64 sq.m BMI - 21.40 Temperature - 98.0 F (LOW) Pulse - 71 /min Respiration - 16 /min BP - 108/71 mm(hg) O2 Sat - 92 % (LOW) Pain - 2 Fatigue - 4 Physical Examination: Constitutional - She looks pretty good generally, Eyes - Sclerae nonicteric. Conjunctivae clear, ENMT - No lesions noted in the oral cavity, Hematologic/Lymphatic - No cervical, clavicular, or axillary adenopathy, Respiratory - Lungs sound clear with dimninished air movement bilaterally, Cardiovascular - Heart rhythm is regular. There is no murmur, gallop, or rub noted, Abdomen - Soft. Liver and spleen are not enlarged. There is no abdominal mass or ascites noted and there is no inguinal adenopathy, Extremities - No edema, Integumentary - Her skin generally appears dry, and there is some mild erythema on the back. There are scattered excoriations, Neurologic - No focal neurologic deficits noted. Lab/Imaging: Test performed on May 05, 2021 12:45 Sodium 134 mmol/L Potassium 4.8 mmol/L Chloride 100 mmol/L CO2 20 mmol/L Anion Gap 18.8 BUN 20 mg/dL Creatinine 1.2 mg/dL Cr Clearance (Est) 37.73 mL/min Glucose 87 mg/dL Osmolality - Calculated 280 mOsm/kg Calcium 8.6 mg/dL Protein, Total 6.6 g/dL Albumin 3.8 g/dL Globulin 2.8 g/dL Bilirubin, Total 0.2 mg/dL ALT (SGPT) 10 U/L AST (SGOT) 14 U/L Alkaline Phosphatase 99 IU/L WBC 9.2 10 3/uL RBC 4.92 10 6/uL HGB 15.0 g/dL HCT 45.5 % MCV 92.5 fl MCH 30.5 pg MCHC 33.0 g/dL RDW 14.1 % Platelet Count 257 10 3/cmm MPV 8.6 fL Neutrophils 6.05 10 3/uL Lymphocytes 2.0 10 3/uL Monocytes 0.7 10 3/uL Eosinophils 0.3 10 3/uL Basophils 0.0 10 3/uL Neutrophil % 65.7 % Lymphocyte % 22.1 % Monocyte % 7.7 % Eosinophil % 3.4 % Basophils % 0.4 % NRBC % 0 % Problem List: 1. Small cell lung cancer of the right lung, by clinical evaluation stage IIIA (T4, N1, M0) At initial diagnosis in June 2019. She had subsequent progression to stage IVB (M1c). 2. 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 There has been no evidence of recurrence. 3. COPD. 4. Hypertension. 5. Hyperlipidemia. 6. Peripheral arterial disease. 7. Degenerative arthritis/degenerative disease of the spine. 8. Osteoporosis. 9. Depression. 10. History of hepatitis. Problems Addressed with this Encounter and Plan: 1. Patient with small cell lung cancer of the right lung, initially TNM stage IIIA (T4, N1, M0) by clinical evaluation, diagnosed by bronchoscopy/EBUS in June 2019. Treatment included 4 cycles of cisplatin/etoposide chemotherapy administered from July through September 2019. She was given radiation concurrently, beginning with cycle 2. Radiation was completed on 10/10/2019 to a total dose of 6000 cGy. She tolerated the treatment well, and she appeared to have a good response by follow-up chest CT scan, though with development of significant treatment related opacities in the right middle and lower lobes. Her CT scans in May continued to show significant opacities. I did review the scans independently with the patient, and there did appear to be some improvement compared to the January CT scan, but there were still very significant pulmonary parenchymal opacities in the right lung which were new compared to the pretreatment CT scan. These were presumed to be radiation related. On her repeat chest CT on 07/28/2020 the pleural-based nodule in the anterior right middle lobe was noted to have increased to 14 mm compared to 8 mm in May, suspicious for metastasis. Her brain MRI at that time showed new small lesions in the left frontal lobe and left occipital lobe and on her follow-up MRI on 08/30/2020 the left frontal lobe lesion had increased slightly. There were new small lesions noted in the posterior left frontal lobe and in the right frontal lobe. These were felt to be suspicious for metastatic lesions. Repeat brain MRI on 10/22/2020 showed several enhancing lesions which were felt to be consistent with metastatic disease including 2 posterior right frontal lobe lesions, a left frontal subcortical white matter lesion, and a left occipital lobe lesion. As such her disease had progressed to stage IVB (M1c) and with those findings she was referred to Dr. Bailey for palliative radiation. She underwent SRS to all 4 sites, each to a dosage of 2400 cGy. She tolerated the radiation very well. Her restaging chest CT on 12/07/2020 showed no evidence of disease progression. There was significant improvement noted on her followup brain MRI on 01/17/2021. However, her repeat chest CT on 03/10/2021 showed a slight increase in the right lower lobe pleural nodule. Her repeat head MRI on 05/03/2021 showed resolution of the previously treated brain lesions, but with development of 2 new small lesions, one in the left postcentral gyrus measuring 5 mm and the other in the left occipital lobe cortex measuring [address] scans on 05/31/2021 showed progression of pleural-based nodules in the anterolateral lower thorax involving the right middle lobe and in the posterolateral right lower lobe. On my review of the CT, the described pleural-based lesions are distinct from the lesion that was treated with radiation. The degree of progression since the February study is very slight, but she has having pain in the right rib cage which pretty well correlates with those findings. With minimal progression of the pleural-based disease, she was recommended to proceed with SRS for the brain lesions. She completed that treatment on 06/16/2021 to a dose of 2400 cGy to both sites. She tolerated it well. In the meantime, she also was recommended to proceed with CT directed biopsy of the right middle lobe pleural-based lesion, and that procedure is scheduled to be done as an outpatient tomorrow. She will be seen for follow-up and for further treatment recommendations when the pathology results are available. 2. She has generalized itching. She has some mild associated skin eruption, which to me appears nonspecific. She is still worried about scabies, though she has previously been treated for it. I will go ahead now and arrange for dermatology referral. In the meantime, she will start cetirizine 10 mg in the morning with Benadryl 25 mg at bedtime, and I will change her antacid medication from omeprazole to famotidine 20 mg twice daily. Signed By: Cedric Arango M.D. <<Signature on File>>
--- NOTE | 2021-06-30 16:20 | ONC FU_ITS ---
Dr. Arango Patient Follow-Up Note Patient: Anneliese Garcia Unit #: [id number]: 1945 Dicatated By: Cedric Arango M.D.Date of Visit:Jun 30, 2021 Onc Med Follow-up/Prog Note Chief Complaint: Lung cancer. History of Present Illness: This is a 75 year-old woman with small cell lung cancer, by clinical evaluation stage IIIA (T4, N1, M0) at initial diagnosis in June 2019. She had subsequent progression to stage IVB (M1c). On 06/28/[address] directed needle biopsy of enlarging pleural-based right lung mass. The preliminary indication from the pathologist is adenocarcinoma, but additional pathologic studies are pending. In the meantime, she called today reporting that she was having difficulty taking a deep breath following the biopsy. The pain in her chest area has also been worse, and she has been short of breath. She had initially coughed up some mucus with blood in it, but that seems to have resolved. She has not been febrile. Medications: amLODIPine Besylate 1 Tablet (of 5 mg) Tablet Oral daily, Aspirin 1 Tablet (of 325 mg) Oral daily, Bactrim DS 1 Tablet Oral b.i.d., Chantix 1 (1 mg) Tablet Oral b.i.d., Protonix 1 Tablet (of 40 mg) Tablet, enteric coated Oral daily, Sertraline HCl 1 Tablet (of 100 mg) Oral daily, Simvastatin 1 Tablet (of 10 mg) Oral daily, Stiolto Respimat Aerosol, solution Inhalation, Toprol XL 2 Tablet (of 50 mg) Tablet SR 24 HR Oral daily, traMADol HCl (50 mg) Tablet Oral Take as Directed Allergies: DULoxetine HCl and FLUoxetine HCl. Vital Signs: Performed on Jun 30, 2021 14:12 Height - 65.00 in O2 Sat - 99 % Performed on Jun 30, 2021 14:07 Height - 65.00 in O2 Sat - 93 % (LOW) Performed on Jun 30, 2021 14:05 Height - 65.00 in O2 Sat - 79 % (LOW) Performed on Jun 30, 2021 14:00 Height - 65.00 in Pulse - 80 /min Respiration - 28 /min BP - 94/62 mm(hg) O2 Sat - 92 % (LOW) Physical Examination: Constitutional - She appears short of breath with effort, Respiratory - Lungs sounds clear with diminished air movement bilaterally, Cardiovascular - Heart rhythm is regular. There is no murmur, gallop, or rub noted. Problem List: 1. Small cell lung cancer of the right lung, by clinical evaluation stage IIIA (T4, N1, M0) At initial diagnosis in June 2019. She had subsequent progression to stage IVB (M1c). 2. She has a history of having undergone lumpectomy/axillary lymph node sampling and radiation for grade I invasive ductal carcinoma of the left breast, stage IA (T1b, N0, M0), ER/[place] positive and HER-2/franco negative. There has been no evidence of recurrence. 3. COPD. 4. Hypertension. 5. Hyperlipidemia. 6. Peripheral arterial disease. 7. Degenerative arthritis/degenerative disease of the spine. 8. Osteoporosis. 9. Depression. 10. History of hepatitis. Problems Addressed with this Encounter and Plan: 1. Patient with small cell lung cancer of the right lung, initially TNM stage IIIA (T4, N1, M0) by clinical evaluation, diagnosed by bronchoscopy/EBUS in June 2019. Treatment included 4 cycles of cisplatin/etoposide chemotherapy administered from July through September 2019. She was given radiation concurrently, beginning with cycle 2. Radiation was completed on 10/10/2019 to a total dose of 6000 cGy. She tolerated the treatment well, and she appeared to have a good response by follow-up chest CT scan, though with development of significant treatment related opacities in the right middle and lower lobes. Her CT scans in May continued to show significant opacities. I did review the scans independently with the patient, and there did appear to be some improvement compared to the January CT scan, but there were still very significant pulmonary parenchymal opacities in the right lung which were new compared to the pretreatment CT scan. These were presumed to be radiation related. On her repeat chest CT on 07/28/2020 the pleural-based nodule in the anterior right middle lobe was noted to have increased to 14 mm compared to 8 mm in May, suspicious for metastasis. Her brain MRI at that time showed new small lesions in the left frontal lobe and left occipital lobe and on her follow-up MRI on 08/30/2020 the left frontal lobe lesion had increased slightly. There were new small lesions noted in the posterior left frontal lobe and in the right frontal lobe. These were felt to be suspicious for metastatic lesions. Repeat brain MRI on 10/22/2020 showed several enhancing lesions which were felt to be consistent with metastatic disease including 2 posterior right frontal lobe lesions, a left frontal subcortical white matter lesion, and a left occipital lobe lesion. As such her disease had progressed to stage IVB (M1c) and with those findings she was referred to Dr. Bailey for palliative radiation. She underwent SRS to all 4 sites, each to a dosage of 2400 cGy. She tolerated the radiation very well. Her restaging chest CT on 12/07/2020 showed no evidence of disease progression. There was significant improvement noted on her followup brain MRI on 01/17/2021. However, her repeat chest CT on 03/10/2021 showed a slight increase in the right lower lobe pleural nodule. Her repeat head MRI on 05/03/2021 showed resolution of the previously treated brain lesions, but with development of 2 new small lesions, one in the left postcentral gyrus measuring 5 mm and the other in the left occipital lobe cortex measuring [address] scans on 05/31/2021 showed progression of pleural-based nodules in the anterolateral lower thorax involving the right middle lobe and in the posterolateral right lower lobe. On my review of the CT, the described pleural-based lesions are distinct from the lesion that was treated with radiation. The degree of progression since the February study is very slight, but she has having pain in the right rib cage which pretty well correlates with those findings. With minimal progression of the pleural-based disease, she was recommended to proceed with SRS for the brain lesions. She completed that treatment on 06/16/2021 to a dose of 2400 cGy to both sites. She tolerated it well. 2. On 06/28/[address] directed biopsy of the enlarging pleural-based right lung nodule. She has developed delayed post biopsy pneumothorax. The pneumothorax is not large enough to require a chest tube, she does have associated shortness of breath and hypoxia. Her oxygen saturation dropped to 79% on room air with activity and initially increased to 93% on O2 by nasal cannula at 2 L/min. We discussed the possibility of overnight observation in the hospital. However, due to bed unavailability, she will be prescribed home oxygen and she will return tomorrow for repeat chest x-ray. She also will be prescribed Levaquin 5 by milligrams daily and a short course of prednisone. If symptoms worsen she will report to the emergency room. Signed By: Cedric Arango M.D. <<Signature on File>>
== END 2021-06-28 09:30 | disposition home or self-care (01) ==
LOC: ONCMED 15:17
PROVIDERS: PCP Family Medicine; Visit Provider Radiology Radiation Oncology
DX: C34.01 Malignant neoplasm of right main bronchus (principal); C79.31 Secondary malignant neoplasm of brain; Z85.3 Personal history of malignant neoplasm of breast; J44.9 Chronic obstructive pulmonary disease, unspecified; I10 Essential (primary) hypertension; E78.5 Hyperlipidemia, unspecified; I73.9 Peripheral vascular disease, unspecified; G31.89 Other specified degenerative diseases of nervous system; M81.0 Age-related osteoporosis without current pathological fracture; F32.9 Major depressive disorder, single episode, unspecified; Z86.19 Personal history of other infectious and parasitic diseases; Z79.899 Other long term (current) drug therapy; Z92.3 Personal history of irradiation; Z90.12 Acquired absence of left breast and nipple
CPT/HCPCS: 99214

== ENCOUNTER 2021-06-28 09:37 | Day surgery (SDC) | payer MEDICARE, SELFPAY ==
[2021-06-28] VITALS (13 sets, daily range): BP systolic 109–152; BP diastolic 63–83; PULSE 64–68; RESP 14–22; TEMP 36.6–36.8; O2SAT 91–100; BMI 20.2
--- NOTE | 2021-06-28 | CT_ITS ---
WS: [id number] LUNG BIOPSY CLINICAL INFORMATION: right chest wall mass COMPARISON: May 31, 2021 DLP: 733.47 mGy.cm TECHNIQUE: The procedure including risk, benefits, and complications were discussed with the patient who agreed to proceed. Timeout was performed. Conscious sedation was utilized. Using sterile techniqu e, the patient was prepped and draped in the usual sterile fashion. Patient was positioned LEFT-side- down and CT images were obtained through the RIGHT lung. The peripheral pleural-based thickening at t he 9th/10th rib level was selected. After 1% lidocaine using fluoroscopic guidance, a 19-gauge coaxia l needle was advanced into the peripheral lung mass. Approximately 5 samples were obtained. Post proc edure CT images demonstrate expected hemorrhage about the region. No visualized pneumothorax. No imme diate complications. CT/CT biopsy lung [id number] IMPRESSION: 1. Multiple 20-gauge core samples were obtained of the RIGHT lung mass. No imm ediate complications. 2. 60 minute chest x-ray demonstrates no pneumothorax. 3. Patient was discharged 90 minutes postprocedure in stable condition.
--- NOTE | 2021-06-28 09:56 | CT_ITS ---
WS: [email or web address] LUNG BIOPSY CLINICAL INFORMATION: right chest wall mass COMPARISON: May 31, 2021 DLP: 733.47 mGy.cm TECHNIQUE: The procedure including risk, benefits, and complications were discussed with the patient who agreed to proceed. Timeout was performed. Conscious sedation was utilized. Using sterile techniqu e, the patient was prepped and draped in the usual sterile fashion. Patient was positioned LEFT-side- down and CT images were obtained through the RIGHT lung. The peripheral pleural-based thickening at t he 9th/10th rib level was selected. After 1% lidocaine using fluoroscopic guidance, a 19-gauge coaxia l needle was advanced into the peripheral lung mass. Approximately 5 samples were obtained. Post proc edure CT images demonstrate expected hemorrhage about the region. No visualized pneumothorax. No imme diate complications.
[2021-06-28] MEDS: sodium chloride 0.9% 1,000 ML 30 ML IV (10:19)
[2021-06-28 10:27] LABS: INR 0.97 (0.8-1.2)
[2021-06-28] MEDS: fentaNYL 50 mcg/mL INJ 2mL IVP (11:36)
[2021-06-28] MEDS: midazolam 1 mg/mL INJ 2 mL 2 MG IVP (11:36)
--- NOTE | 2021-06-28 13:00 | XR_ITS ---
WS: [id number] XR chest 1V portable [id number] REASON FOR EXAM: F/U LUNG BIOPSY @ 60 MINS POSTOP (1300 PM) FINDINGS: No right pneumothorax. Chemotherapy infusion port in place over the left anterolateral chest with left subclavian infusion c atheter with tip just beyond the left innominate vein/superior vena caval junction. Extrapleural mass density overlying the right costophrenic angle. Coarse reticular interstitial changes in the lower lung rodarte with bullous disease in the upper lung rodarte. Irregular linear densities radiating from the right hilar region with upward retraction of the right hilum. XR/XR chest 1V portable [id number] IMPRESSION: No right pneumothorax. Multiple lung changes as above which were present on the CT scan of 05/31/2021.
== END 2021-06-28 14:01 | disposition home or self-care (01) ==
PROVIDERS: PCP Family Medicine; Visit Provider Radiology Neuroradiology
DX: R22.2 Localized swelling, mass and lump, trunk (principal); J44.9 Chronic obstructive pulmonary disease, unspecified; I10 Essential (primary) hypertension; E78.5 Hyperlipidemia, unspecified; M19.90 Unspecified osteoarthritis, unspecified site; M81.0 Age-related osteoporosis without current pathological fracture; Z86.19 Personal history of other infectious and parasitic diseases; Z79.82 Long term (current) use of aspirin; F32.9 Major depressive disorder, single episode, unspecified
CPT/HCPCS: 32408; 36415; 71045; 77012; 85610; 88309; 88342; 96374; 96375; J2250; J3010; J7030

== ENCOUNTER 2021-06-30 11:38 | Outpatient (CLI) | payer MEDICARE, SELFPAY ==
--- NOTE | 2021-06-30 12:04 | XR_ITS ---
WS: [email or web address] XR chest 2V* [id number] REASON FOR EXAM: SHORTNESS OF BREATH/POST LUNG BIOPSY FINDINGS: Patient has developed delayed pneumothorax with normal chest x-ray immediately post biopsy. Perry of t he lung is at the level of the fourth rib posteriorly. XR/XR chest 2V* [id number] IMPRESSION: Delayed right pneumothorax postbiopsy.
== END 2021-06-30 11:39 | disposition home or self-care (01) ==
LOC: RAD 11:53
PROVIDERS: PCP Family Medicine; Visit Provider Internal Medicine Medical Oncology
DX: R06.02 Shortness of breath (principal); Z98.890 Other specified postprocedural states
CPT/HCPCS: 71046

== ENCOUNTER 2021-07-01 15:14 | Outpatient (CLI) | payer MEDICARE, SELFPAY ==
--- NOTE | 2021-07-01 15:35 | XR_ITS ---
WS: [id number] XR chest 2V* [id number] REASON FOR EXAM: LUNG CANCER, PNEUMOTHORAX FINDINGS: The right pneumothorax, demonstrated on 06/30/2021, the previous examination. Is somewhat smaller than on the previous examination. No other significant interval change or new finding is identified. XR/XR chest 2V* [id number] IMPRESSION: Delayed pneumothorax is somewhat smaller than on the previous day. The pneumoth orax of the right lung is between the right third and fourth ribs posteriorly. It was at the fourth rib level yesterday. Patient was in no distress. Voicemail message, relaying the above report, was left on the referring physici an's cell phone approximately 4:09 PM.
== END 2021-07-01 15:15 | disposition home or self-care (01) ==
LOC: RAD 15:28
PROVIDERS: PCP Family Medicine; Visit Provider Internal Medicine Medical Oncology
DX: C34.11 Malignant neoplasm of upper lobe, right bronchus or lung (principal); J93.9 Pneumothorax, unspecified
CPT/HCPCS: 71046

== ENCOUNTER 2021-07-15 10:00 | Outpatient (RCR) | payer MEDICARE, SELFPAY ==
--- NOTE | 2021-07-15 10:37 | [facility]CRAD EPV_ITS ---
Radiation Oncology Follow-Up Note Patient Name: Anneliese Garcia Date of : 1945 Date of Service: 07/15/2021 Attending Physician: Bennie Bailey M.D. Anneliese Garcia returned to my office this morning for routinely scheduled follow-up appointment. She completed four stereotactic radiosurgery procedures in October for the management of a small cell lung carcinoma A repeat MRI ordered on October 22, 2020 for continued advertency of questionable abnormalities identified several enhancing lesions metastatic disease ???a 9 mm right frontal lobe vertex lesion, a 5 mm right posterior frontal cortex lesion, a 1 cm x 1.4 cm left frontal subcortical white matter lesion, and a 1.1 cm left occipital lobe lesion. SRS was performed on the dates listed: November 01, 2020 - The prescribed dose of 24 Gy was delivered to the right posterior frontal cortex lesion in one fraction. November 10, 2020 - The prescribed dose of 24 Gy was delivered to the right vertex lesion in one fraction. November 12, 2020 - The prescribed dose of 24 Gy was delivered to the left occipital lobe lesion in one fraction. November 15, 2020 - The prescribed dose of 24 Gy was delivered to the left frontal lobe lesion in one fraction. An MRI ordered on May 03, 2021 confirmed resolution of the prior lesions, but described two new metastatic deposits: a 5 mm left post-central gyral lesion and a 4 mm left occipital lobe lesion. SRS was performed on June 16, 2021. A prescribed dose of 24 Gy was delivered to the left post-central gyrus and 24 Gy was administered to the left occipital lesion. A recent right pleural biopsy was non-diagnostic. On review of systems, she refuted any central nervous system complaints. On physical examination, she weighed 131 pounds. The temperature was 97???F and the blood pressure was 127/82 mmHg. The pulse was 84 bpm and the respiratory rate was 20 breaths per minute. Neurological exam did not reveal any focal abnormalities. In summary, Ms. Garcia returned for a routine post radiotherapy follow-up. She has no sequelae for SRS. She will continue follow-up with medical oncology. Signed by: Dr. Bennie Bailey 07/15/2021 10:36:15 AM
== END 2021-07-18 23:59 | disposition home or self-care (01) ==
LOC: ONCMED 10:00
PROVIDERS: PCP Family Medicine; Visit Provider Radiology Radiation Oncology
DX: C79.31 Secondary malignant neoplasm of brain (principal); C79.51 Secondary malignant neoplasm of bone; Z92.3 Personal history of irradiation
CPT/HCPCS: 99024

== ENCOUNTER 2021-08-09 06:58 | Outpatient (RCR) | payer MEDICARE, SELFPAY ==
--- NOTE | 2021-07-21 12:40 | ONC FU_ITS ---
Dr. Arango Patient Follow-Up Note Patient: Anneliese Garcia Unit #: [id number]: [id number] Dicatated By: Cedric Arango M.D.Date of Visit:Jul 21, 2021 Onc Med Follow-up/Prog Note Chief Complaint: Lung cancer. History of Present Illness: This is a 75 year-old woman with metastatic lung cancer. 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 By clinical evaluation her disease was stage IIIA (T4, N1, M0), as her staging PET/CT showed a 1.2 cm subpleural nodule in the right upper lobe, SUV 9.8, consistent with a primary neoplasm, a 2 cm right upper lobe hilar node with SUV 10.9 consistent with local metastatic disease, and an additional pleural-based plaque in the lateral right middle lobe with SUV 8.2, consistent with metastatic disease. Her bronchoscopy showed no endobronchial lesion. The EBUS with FNA biopsy of the right hilar lymph node was consistent with small cell carcinoma. I had seen her initially on 07/29/2019. With 2 isolated lung lesions and right hilar node involvement, I was unsure if she was appropriate for concurrent chemoradiation. I opted to have her start chemotherapy pending consultation with the radiation oncologist. Her staging brain MRI on 08/06/2019 showed no evidence of metastatic disease. She began cycle 1 of cisplatin/etoposide chemotherapy on 08/11/2019. She tolerated it without acute toxicity. At day 15 she was severely neutropenic, ANC 400. She was not febrile, and she recovered following treatment with Neupogen. Following radiation oncology consultation, she decision was made to proceed with combined modality therapy. She continued with cycle 2 on 09/01/2019 with the dosages reduced by 10%. At that time she also began concurrent radiation. She continued to have significant fatigue with the treatment, but she otherwise tolerated it pretty well. She continued with cycle 3 of cisplatin/etoposide on 09/24/2019. She completed radiation on 10/10/2019 to a total dose of 6000 cGy, and she then continued with her 4th cycle of chemotherapy on 10/15/2019. Restaging chest CT on 11/10/2019 showed improvement in the subpleural right upper lobe nodule measuring 6 mm compared to 9 to 10 mm on the previous studies. The small right middle lobe lesion had resolved. The right hilar lymph node had decreased to 7 mm compared to 2.0 cm. There was no mediastinal adenopathy noted. With those findings I opted to follow her on observation/expectant management. Her chest CT on 02/10/2020 showed complete resolution of subpleural right upper lobe nodule but with progression of right multilobar sub-solid opacifications compared to the October 2019 study. The reported differential included pneumonitis, post therapeutic response to radiation, or new metastatic disease. There was no significant change in the right hilar lymph node measuring 9 mm. Additional subcentimeter mediastinal and hilar lymph nodes appeared slightly more prominent. There was severe underlying emphysema. There was no evidence of other metastatic disease. Her repeat brain MRI showed no evidence of metastatic disease. Given those findings, she continued on observation/expectant management. Repeat chest CT on 05/24/2020 reported semisolid opacities in the right middle lobe and right lower lobe which were noted to have improved compared to the prior study in January. These appear to be most likely treatment related. Right lower lobe airspace infiltrates also were noted to have improved. A subpleural nodularity in the right upper lobe appeared unchanged and there was no progressed mediastinal or hilar lymphadenopathy. A new soft tissue chest wall/pleural nodule was noted in the right lower lobe anteriorly adjacent to the sixth rib. It measured 8 mm and the appearance was suspicious for metastatic disease. However, as the changes appear to be mostly due to radiation, I opted to continue expectant management. She had had surveillance brain MRI on 07/28/2020. It showed a few small foci of restricted diffusion in the left frontal white matter and left parasagittal occipital lobe with associated enhancement. There was a small amount of associated edema with the left occipital lesion. Findings were felt to be due to either small subacute infarcts or metastatic disease. Short-term interval follow-up was recommended. On her followup brain MRI on 08/30/2020 the enhancing lesion in the left frontal lobe subcortical white matter was noted to be slightly larger measuring 7.4 mm. The left posterior occipital lobe lesion at 7 mm was not significantly changed in size, appearance consistent with infarct. A new area of restricted diffusion with slight enhancement was noted in the posterior left frontal lobe cortex. A right frontal lobe enhancement measured 3 mm. Overall, the findings were felt to be suspicious for metastatic sites. She then had repeat brain MRI on 10/22/2020. That study showed several enhancing lesions which were felt to be consistent with metastatic disease including a posterior right frontal lobe lesion with maximum diameter of 9 mm, increased from 3 mm on the prior study. An additional new enhancing nodule was noted in the posterior right frontal cortex measuring 5 mm. A left frontal subcortical white matter lesion measuring 10 x 14 mm had increased from 7.4 mm and an additional peripheral enhancing irregular lesion in left occipital lobe measured 11 mm, increased from 7 mm on the prior study. With those findings, she was referred to Dr. Bailey. She then underwent SRS to the right frontal lobe lesion on 11/10/2020, to the left occipital lesion on 11/12/2020, and to the left frontal lesion on 11/15/2020, all sites to a dosage of [address] on 12/07/2020 showed unchanged pleural-based nodule in the right lower lobe measuring 10 mm. A pleural-based nodule in the right middle lobe anteriorly measuring 14 mm also appeared unchanged. There were 2 tiny adjacent subpleural nodules measuring 5 mm and 3.7 mm which appeared more prominent. There is no mediastinal or hilar lymphadenopathy or other evidence of metastatic disease. There were advanced chronic emphysematous changes. Repeat brain MRI on 01/17/2021 showed significant decrease in the size and number of metastatic brain lesions. Only 2 lesions were identified, the largest in the left frontal lobe measuring 6 mm. There were no new lesions identified. Repeat chest CT on 03/10/2021 showed a slight increase in the right lower lobe pleural nodule measuring 15 mm compared to 10 mm on the prior study. Right upper lobe pleural nodules anteriorly appeared stable to slightly more prominent. There was no mediastinal or hilar adenopathy noted. Repeat head MRI on 05/03/2021 showed resolution of previously described subcentimeter metastatic lesions but with development of 2 new metastatic lesions, one in the left postcentral gyrus measuring 5 mm and the other in the left occipital lobe cortex measuring [address] scans of the chest, abdomen, and pelvis on 05/31/2021 showed progression of pleural thickening and nodularity within the right thorax compared to the study from February 2021. The largest area of progression was in the anterior lateral lower thorax involving the right middle lobe with the nodularity noted to extend over a length of 4.3 cm with a diameter of 1.0 cm. There was slight progression of the right lower lobe pleural thickening measuring 3.2 x 2.0 cm. Soft tissue tumor enhancement was noted to encase the adjacent rib and extend externally to the visceral pleura. Also noted was extensive advanced emphysematous disease throughout both lungs. A mildly enlarged lymph node measuring 9 mm was noted in the high right paratracheal area. A mildly prominent subcarinal lymph node measuring 10 mm. Unchanged. There was no evidence of metastatic disease in the abdomen/pelvis. With those findings, she was recommended to proceed with SRS to the left postcentral gyral and left occipital lobe metastatic lesions. With evidence of progression of the right middle lobe pleural-based lesion, she was also recommended to undergo CT directed biopsy. She completed the SRS on 06/16/2021 to a dose of 2400 cGy to each site. She tolerated the treatment well. On 06/28/[address] directed biopsy of the pleural-based lesion at the right ninth/10th rib level. Pathology reported a rare group of atypical cells within the biopsy specimen which were suspicious for primary lung adenocarcinoma. The specimen was insufficient for assessment of PD-L1 expression. The pathology was sent to [facility] for review, and it was felt that despite the cytologic atypia, a diagnosis of malignancy could not be rendered. 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 She completed radiation in January 2003. She had only brief adjuvant hormonal therapy, stopped at 6 months due to side effects. She has had no evidence of recurrence. Her other medical illnesses, in addition to the breast cancer, include COPD, hypertension, hyperlipidemia, degenerative disease of the spine, osteoporosis, and depression. She has a history of hepatitis. She also has known peripheral arterial disease for which she has undergone iliac artery stent placement. Her other prior surgeries include left breast lumpectomy with axillary lymph node sampling, hysterectomy/bilateral salpingo-oophorectomy, closed reduction for left distal radius fracture, cholecystectomy, and arthroscopic right knee surgery. She has a history of smoking 1/2 pack of cigarettes daily for 50 years. She has cut down to 2 or 3 cigarettes/day. INTERIM HISTORY: She has been feeling a little better generally following the lung biopsy procedure last month, which was complicated by a small pneumothorax. She is still having pain in the mid back on the right side and in the lower right anterior rib area. It has generally been controlled with hydrocodone/APAP, though today the pain has been more severe. This may be activity related, as she and her are in the process of moving. Her ECOG score is 1. Her appetite has been down a little. Her weight is stable. She has not had fever. She sometimes gets a little damp at night. She has not had sore mouth or throat. She has not had much cough. She is short of breath with activity. She is using oxygen at night. She has no GI complaints. She says her bladder is a little leaky. She has no other joint or bone pain. She does not complain of headache. She does have some difficulty with balance. She has no numbness/paresthesia or other focal neurologic symptoms. Medications: amLODIPine Besylate 1 Tablet (of 5 mg) Tablet Oral daily, Aspirin 1 Tablet (of 325 mg) Oral daily, Bactrim DS 1 Tablet Oral b.i.d., Chantix 1 (1 mg) Tablet Oral b.i.d., Protonix 1 Tablet (of 40 mg) Tablet, enteric coated Oral daily, Sertraline HCl 1 Tablet (of 100 mg) Oral daily, Simvastatin 1 Tablet (of 10 mg) Oral daily, Stiolto Respimat Aerosol, solution Inhalation, Toprol XL 2 Tablet (of 50 mg) Tablet SR 24 HR Oral daily, traMADol HCl (50 mg) Tablet Oral Take as Directed Allergies: DULoxetine HCl and FLUoxetine HCl. Vital Signs: Performed on Jul 21, 2021 08:48 Height - 65.00 in Weight - 131.8 lbs (HIGH) BSA - 1.66 sq.m BMI - 21.93 Temperature - 97.3 F (LOW) Pulse - 84 /min Respiration - 18 /min BP - 117/72 mm(hg) O2 Sat - 96 % Pain - 7 Fatigue - 6 Physical Examination: Constitutional - She appears somewhat weak generally, Eyes - Sclerae nonicteric. Conjunctivae clear, ENMT - No lesions noted in the oral cavity, Hematologic/Lymphatic - No cervical, clavicular, or axillary adenopathy, Respiratory - Lungs sound clear with dimninished air movement bilaterally, Cardiovascular - Heart rhythm is regular. There is no murmur, gallop, or rub noted, Abdomen - Soft. Liver and spleen are not enlarged. There is no abdominal mass or ascites noted and there is no inguinal adenopathy, Extremities - No edema, Neurologic - No focal neurologic deficits noted. Problem List: 1. Metastatic lung cancer. 2. 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 There has been no evidence of recurrence. 3. COPD. 4. Hypertension. 5. Hyperlipidemia. 6. Peripheral arterial disease. 7. Degenerative arthritis/degenerative disease of the spine. 8. Osteoporosis. 9. Depression. 10. History of hepatitis. Problems Addressed with this Encounter and Plan: 1. Patient with metastatic lung cancer. Her diseae was TNM stage IIIA (T4, N1, M0) by clinical evaluation at initial diagnosis in June 2019. Her bronchoscopy/EBUS with FNA biopsy of a right hilar lymph node was consistent with small cell carcinoma. Her initital reatment included 4 cycles of cisplatin/etoposide chemotherapy administered from July through September 2019. She was given radiation concurrently, beginning with cycle 2. Radiation was completed on 10/10/2019 to a total dose of 6000 cGy. She tolerated the treatment well, and she appeared to have a good response by follow-up chest CT scan, though with development of significant treatment related opacities in the right middle and lower lobes. A repeat brain MRI on 10/22/2020 showed several enhancing lesions which were felt to be consistent with metastatic disease including 2 posterior right frontal lobe lesions, a left frontal subcortical white matter lesion, and a left occipital lobe lesion. As such her disease had progressed to stage IVB (M1c) and with those findings she was referred to Dr. Bailey for palliative radiation. She underwent SRS to all 4 sites, each to a dosage of 2400 cGy. She tolerated the radiation very well. Her restaging chest CT on 12/07/2020 showed no evidence of disease progression. There was significant improvement noted on her followup brain MRI on 01/17/2021. However, her repeat chest CT on 03/10/2021 showed a slight increase in the right lower lobe pleural nodule. Her repeat head MRI on 05/03/2021 showed resolution of the previously treated brain lesions, but with development of 2 new small lesions, one in the left postcentral gyrus measuring 5 mm and the other in the left occipital lobe cortex measuring [address] scans on 05/31/2021 showed progression of pleural-based nodules in the anterolateral lower thorax involving the right middle lobe and in the posterolateral right lower lobe. On my review of the CT, the described pleural-based lesions are distinct from the lesion that was treated with radiation. The degree of progression since the February is very slight, but she had developed pain in the right rib cage which pretty well correlated with those findings. With minimal progression of the pleural-based disease, she was recommended to proceed with SRS for the brain lesions. She completed that treatment on 06/16/2021 to a dose of 2400 cGy to both sites. She tolerated it well. On 06/28/[address] directed biopsy of the enlarging pleural-based right lung nodule. The initial pathology report indicated a small cluster of atypical cells which appeared consistent with primary lung adenocarcinoma. The sample was insufficient for analysis of the PD-L1 expression. On review of the pathology at [facility], it was felt that a diagnosis of malignancy could not be rendered. By clinical evaluation, the findings are suspicious for progression of pleural-based disease, and based on the appearance and location, it would most likely be non-small cell carcinoma. The pathology findings were reviewed with the patient I also reviewed the CT findings and images. We discussed the clinical implications. At this point I think we best to schedule a restaging PET/CT to assist with planning of her further treatment. The options potentially could include chemotherapy, a chemotherapy/immunotherapy combination, or immunotherapy alone. I would favor the latter, as she is less likely to benefit with chemotherapy in the setting of known [employer] metastatic disease. The main concern with the immunotherapy is that she does have significant underlying COPD and she would be at risk for significant treatment related morbidity if she were to develop pneumonitis on top of it. Ultimately, she may just want to continue with symptomatic/supportive care, particularly if her disease is progressing slowly. At least for now, she will be given a prescription for 15 mg immediate release oxycodone to take as needed if the hydrocodone/APAP is not effective. Signed By: Cedric Arango M.D. <<Signature on File>>
--- NOTE | 2021-08-09 18:56 | ONC FU_ITS ---
Dr. Arango Patient Follow-Up Note Patient: Anneliese Garcia Unit #: [id number]: 1945 Dicatated By: Cedric Arango M.D.Date of Visit:Aug 09, 2021 Onc Med Follow-up/Prog Note Chief Complaint: Lung cancer. History of Present Illness: This is a 75 year-old woman with metastatic lung cancer. 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 By clinical evaluation her disease was stage IIIA (T4, N1, M0), as her staging PET/CT showed a 1.2 cm subpleural nodule in the right upper lobe, SUV 9.8, consistent with a primary neoplasm, a 2 cm right upper lobe hilar node with SUV 10.9 consistent with local metastatic disease, and an additional pleural-based plaque in the lateral right middle lobe with SUV 8.2, consistent with metastatic disease. Her bronchoscopy showed no endobronchial lesion. The EBUS with FNA biopsy of the right hilar lymph node was consistent with small cell carcinoma. I had seen her initially on 07/29/2019. With 2 isolated lung lesions and right hilar node involvement, I was unsure if she was appropriate for concurrent chemoradiation. I opted to have her start chemotherapy pending consultation with the radiation oncologist. Her staging brain MRI on 08/06/2019 showed no evidence of metastatic disease. She began cycle 1 of cisplatin/etoposide chemotherapy on 08/11/2019. She tolerated it without acute toxicity. At day 15 she was severely neutropenic, ANC 400. She was not febrile, and she recovered following treatment with Neupogen. Following radiation oncology consultation, she decision was made to proceed with combined modality therapy. She continued with cycle 2 on 09/01/2019 with the dosages reduced by 10%. At that time she also began concurrent radiation. She continued to have significant fatigue with the treatment, but she otherwise tolerated it pretty well. She continued with cycle 3 of cisplatin/etoposide on 09/24/2019. She completed radiation on 10/10/2019 to a total dose of 6000 cGy, and she then continued with her 4th cycle of chemotherapy on 10/15/2019. Restaging chest CT on 11/10/2019 showed improvement in the subpleural right upper lobe nodule measuring 6 mm compared to 9 to 10 mm on the previous studies. The small right middle lobe lesion had resolved. The right hilar lymph node had decreased to 7 mm compared to 2.0 cm. There was no mediastinal adenopathy noted. With those findings I opted to follow her on observation/expectant management. Her chest CT on 02/10/2020 showed complete resolution of subpleural right upper lobe nodule but with progression of right multilobar sub-solid opacifications compared to the October 2019 study. The reported differential included pneumonitis, post therapeutic response to radiation, or new metastatic disease. There was no significant change in the right hilar lymph node measuring 9 mm. Additional subcentimeter mediastinal and hilar lymph nodes appeared slightly more prominent. There was severe underlying emphysema. There was no evidence of other metastatic disease. Her repeat brain MRI showed no evidence of metastatic disease. Given those findings, she continued on observation/expectant management. Repeat chest CT on 05/24/2020 reported semisolid opacities in the right middle lobe and right lower lobe which were noted to have improved compared to the prior study in January. These appear to be most likely treatment related. Right lower lobe airspace infiltrates also were noted to have improved. A subpleural nodularity in the right upper lobe appeared unchanged and there was no progressed mediastinal or hilar lymphadenopathy. A new soft tissue chest wall/pleural nodule was noted in the right lower lobe anteriorly adjacent to the sixth rib. It measured 8 mm and the appearance was suspicious for metastatic disease. However, as the changes appear to be mostly due to radiation, I opted to continue expectant management. She had had surveillance brain MRI on 07/28/2020. It showed a few small foci of restricted diffusion in the left frontal white matter and left parasagittal occipital lobe with associated enhancement. There was a small amount of associated edema with the left occipital lesion. Findings were felt to be due to either small subacute infarcts or metastatic disease. Short-term interval follow-up was recommended. On her followup brain MRI on 08/30/2020 the enhancing lesion in the left frontal lobe subcortical white matter was noted to be slightly larger measuring 7.4 mm. The left posterior occipital lobe lesion at 7 mm was not significantly changed in size, appearance consistent with infarct. A new area of restricted diffusion with slight enhancement was noted in the posterior left frontal lobe cortex. A right frontal lobe enhancement measured 3 mm. Overall, the findings were felt to be suspicious for metastatic sites. She then had repeat brain MRI on 10/22/2020. That study showed several enhancing lesions which were felt to be consistent with metastatic disease including a posterior right frontal lobe lesion with maximum diameter of 9 mm, increased from 3 mm on the prior study. An additional new enhancing nodule was noted in the posterior right frontal cortex measuring 5 mm. A left frontal subcortical white matter lesion measuring 10 x 14 mm had increased from 7.4 mm and an additional peripheral enhancing irregular lesion in left occipital lobe measured 11 mm, increased from 7 mm on the prior study. With those findings, she was referred to Dr. Bailey. She then underwent SRS to the right frontal lobe lesion on 11/10/2020, to the left occipital lesion on 11/12/2020, and to the left frontal lesion on 11/15/2020, all sites to a dosage of [address] on 12/07/2020 showed unchanged pleural-based nodule in the right lower lobe measuring 10 mm. A pleural-based nodule in the right middle lobe anteriorly measuring 14 mm also appeared unchanged. There were 2 tiny adjacent subpleural nodules measuring 5 mm and 3.7 mm which appeared more prominent. There is no mediastinal or hilar lymphadenopathy or other evidence of metastatic disease. There were advanced chronic emphysematous changes. Repeat brain MRI on 01/17/2021 showed significant decrease in the size and number of metastatic brain lesions. Only 2 lesions were identified, the largest in the left frontal lobe measuring 6 mm. There were no new lesions identified. Repeat chest CT on 03/10/2021 showed a slight increase in the right lower lobe pleural nodule measuring 15 mm compared to 10 mm on the prior study. Right upper lobe pleural nodules anteriorly appeared stable to slightly more prominent. There was no mediastinal or hilar adenopathy noted. Repeat head MRI on 05/03/2021 showed resolution of previously described subcentimeter metastatic lesions but with development of 2 new metastatic lesions, one in the left postcentral gyrus measuring 5 mm and the other in the left occipital lobe cortex measuring [address] scans of the chest, abdomen, and pelvis on 05/31/2021 showed progression of pleural thickening and nodularity within the right thorax compared to the study from February 2021. The largest area of progression was in the anterior lateral lower thorax involving the right middle lobe with the nodularity noted to extend over a length of 4.3 cm with a diameter of 1.0 cm. There was slight progression of the right lower lobe pleural thickening measuring 3.2 x 2.0 cm. Soft tissue tumor enhancement was noted to encase the adjacent rib and extend externally to the visceral pleura. Also noted was extensive advanced emphysematous disease throughout both lungs. A mildly enlarged lymph node measuring 9 mm was noted in the high right paratracheal area. A mildly prominent subcarinal lymph node measuring 10 mm. Unchanged. There was no evidence of metastatic disease in the abdomen/pelvis. With those findings, she was recommended to proceed with SRS to the left postcentral gyral and left occipital lobe metastatic lesions. With evidence of progression of the right middle lobe pleural-based lesion, she was also recommended to undergo CT directed biopsy. She completed the SRS on 06/16/2021 to a dose of 2400 cGy to each site. She tolerated the treatment well. On 06/28/[address] directed biopsy of the pleural-based lesion at the right ninth/10th rib level. The procedure was complicated by a small pneumothorax, which resolved with conservative management. Pathology reported a rare group of atypical cells within the biopsy specimen which were suspicious for primary lung adenocarcinoma. The specimen was insufficient for assessment of PD-L1 expression. The pathology was sent to [facility] for review, and it was felt that despite the cytologic atypia, a diagnosis of malignancy could not be rendered. 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 She completed radiation in January 2003. She had only brief adjuvant hormonal therapy, stopped at 6 months due to side effects. She has had no evidence of recurrence. Her other medical illnesses, in addition to the breast cancer, include COPD, hypertension, hyperlipidemia, degenerative disease of the spine, osteoporosis, and depression. She has a history of hepatitis. She also has known peripheral arterial disease for which she has undergone iliac artery stent placement. Her other prior surgeries include left breast lumpectomy with axillary lymph node sampling, hysterectomy/bilateral salpingo-oophorectomy, closed reduction for left distal radius fracture, cholecystectomy, and arthroscopic right knee surgery. She has a history of smoking 1/2 pack of cigarettes daily for 50 years. She has cut down to 2 or 3 cigarettes/day. INTERIM HISTORY: Restaging PET/CT on 07/23/2021 showed resolution of previously noted right upper lobe primary lung nodule and resolution of the right hilar mass. A right middle lobe pleural lesion was noted to have significantly progressed measuring 4.4 cm with SUV 13.6. There was noted to be development of a second posterior right chest wall lesion measuring 4.3 cm with SUV 10.4 representing a second pleural metastasis. A 1.5 cm right paratracheal node was minimally FDG positive. There was no evidence for any other metastatic disease. She is seen for a follow-up visit. She has not been feeling good. She says her energy has been going down since the biopsy, though she is still doing light work at home. ECOG score is 1. She continues to have soreness, most significantly in the mid back area on the right side and to lesser extent in the lower anterior right chest wall. The pain medicine is helping, though she has been trying to cut down on it. Her appetite also is decreasing. Her weight is down 5 pounds. She does not have fever. She occasionally has sweating at night. She complains of dry mouth and she has some soreness in the throat. She has cough productive of greenish sputum. She is short of breath with activity. She occasionally has nausea. She has constipation, though bowels are moving with senna/docusate. She has been having more frequent urination, but with less volume. She does not complain of headache. She sometimes has dizziness. She has no numbness/paresthesia or other focal neurologic symptoms. Medications: amLODIPine Besylate 1 Tablet (of 5 mg) Tablet Oral daily, Aspirin 1 Tablet (of 325 mg) Oral daily, Protonix 1 Tablet (of 40 mg) Tablet, enteric coated Oral daily, Sertraline HCl 1 Tablet (of 100 mg) Oral daily, Simvastatin 1 Tablet (of 10 mg) Oral daily, Stiolto Respimat Aerosol, solution Inhalation, Toprol XL 2 Tablet (of 50 mg) Tablet SR 24 HR Oral daily Allergies: DULoxetine HCl and FLUoxetine HCl. Vital Signs: Performed on Aug 09, 2021 08:17 Height - 65.00 in Weight - 126.6 lbs (LOW) BSA - 1.63 sq.m BMI - 21.07 Temperature - 96.1 F (LOW) Pulse - 80 /min Respiration - 16 /min BP - 97/63 mm(hg) O2 Sat - 98 % Pain - 3 Fatigue - 8 Physical Examination: Constitutional - She appears somewhat weak generally, Eyes - Sclerae nonicteric. Conjunctivae clear, ENMT - No lesions noted in the oral cavity, Hematologic/Lymphatic - No cervical, clavicular, or axillary adenopathy, Respiratory - Lungs sound clear with dimninished air movement bilaterally, Cardiovascular - Heart rhythm is regular. There is no murmur, gallop, or rub noted, Abdomen - Soft. Liver and spleen are not enlarged. There is no abdominal mass or ascites noted and there is no inguinal adenopathy, Extremities - No edema, Neurologic - No focal neurologic deficits noted. Problem List: 1. Metastatic lung cancer. 2. 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 There has been no evidence of recurrence. 3. COPD. 4. Hypertension. 5. Hyperlipidemia. 6. Peripheral arterial disease. 7. Degenerative arthritis/degenerative disease of the spine. 8. Osteoporosis. 9. Depression. 10. History of hepatitis. Problems Addressed with this Encounter and Plan: 1. Patient with metastatic lung cancer. Her diseae was TNM stage IIIA (T4, N1, M0) by clinical evaluation at initial diagnosis in June 2019. Her bronchoscopy/EBUS with FNA biopsy of a right hilar lymph node was consistent with small cell carcinoma. Her initital reatment included 4 cycles of cisplatin/etoposide chemotherapy administered from July through September 2019. She was given radiation concurrently, beginning with cycle 2. Radiation was completed on 10/10/2019 to a total dose of 6000 cGy. She tolerated the treatment well, and she appeared to have a good response by follow-up chest CT scan, though with development of significant treatment related opacities in the right middle and lower lobes. A repeat brain MRI on 10/22/2020 showed several enhancing lesions which were felt to be consistent with metastatic disease including 2 posterior right frontal lobe lesions, a left frontal subcortical white matter lesion, and a left occipital lobe lesion. As such her disease had progressed to stage IVB (M1c) and with those findings she was referred to Dr. Bailey for palliative radiation. She underwent SRS to all 4 sites, each to a dosage of 2400 cGy. She tolerated the radiation very well. Her restaging chest CT on 12/07/2020 showed no evidence of disease progression. There was significant improvement noted on her followup brain MRI on 01/17/2021. However, her repeat chest CT on 03/10/2021 showed a slight increase in the right lower lobe pleural nodule. Her repeat head MRI on 05/03/2021 showed resolution of the previously treated brain lesions, but with development of 2 new small lesions, one in the left postcentral gyrus measuring 5 mm and the other in the left occipital lobe cortex measuring [address] scans on 05/31/2021 showed progression of pleural-based nodules in the anterolateral lower thorax involving the right middle lobe and in the posterolateral right lower lobe. On my review of the CT, the described pleural-based lesions are distinct from the lesion that was treated with radiation. The degree of progression since the February is very slight, but she had developed pain in the right rib cage which pretty well correlated with those findings. With minimal progression of the pleural-based disease, she was recommended to proceed with SRS for the brain lesions. She completed that treatment on 06/16/2021 to a dose of 2400 cGy to both sites. She tolerated it well. On 06/28/[address] directed biopsy of the enlarging pleural-based right lung nodule. The initial pathology report indicated a small cluster of atypical cells which appeared consistent with primary lung adenocarcinoma. The sample was insufficient for analysis of the PD-L1 expression. On review of the pathology at [facility], it was felt that a diagnosis of malignancy could not be rendered. Restaging PET/CT on 07/23/2021 showed significant progression of a right middle lobe pleural-based lesion and development of a second posterior right chest wall pleural metastasis. Overall, she has had significant disease progression, though limited to 2 pleural-based lesions in the right lung. By clinical evaluation, this is much more likely to be non-small cell carcinoma, but unfortunately that could not be verified with the biopsy. I again reviewed treatment options. In the setting of known metastatic brain involvement, I think the best choice would be a trial of pembrolizumab as monotherapy, as the benefit with the second line chemotherapy would be relatively low and it would potentially add significant side effects. The other option would be to just continue with symptomatic/supportive care. The major concern with the immunotherapy would be the risk of pneumonitis. At this point she is wanting to proceed with treatment, and I will plan to begin pembrolizumab at 200 mg by IV infusion every 3 weeks, subject to verification of insurance coverage. In the meantime, I am going to have her try short-term steroid therapy with prednisone 10 mg twice daily and she will be given empiric antibiotic coverage with Levaquin 500 mg daily for 7 days. Signed By: Cedric Arango M.D. <<Signature on File>>
== END 2021-08-18 23:59 | disposition home or self-care (01) ==
LOC: ONCMED 06:58
PROVIDERS: PCP Family Medicine; Visit Provider Internal Medicine Medical Oncology
DX: C34.81 Malignant neoplasm of overlapping sites of right bronchus and lung (principal); C77.8 Secondary and unspecified malignant neoplasm of lymph nodes of multiple regions; J44.9 Chronic obstructive pulmonary disease, unspecified; I10 Essential (primary) hypertension; E78.5 Hyperlipidemia, unspecified; I73.9 Peripheral vascular disease, unspecified; G31.89 Other specified degenerative diseases of nervous system; M81.0 Age-related osteoporosis without current pathological fracture; F32.A Depression, unspecified; Z86.19 Personal history of other infectious and parasitic diseases; Z85.3 Personal history of malignant neoplasm of breast; Z92.3 Personal history of irradiation; Z79.899 Other long term (current) drug therapy; Z79.2 Long term (current) use of antibiotics
CPT/HCPCS: 99214; 99215

== ENCOUNTER 2021-08-16 11:35 | Outpatient (CLI) | payer MEDICARE, SELFPAY ==
[2021-08-16 12:06] LABS: Hematocrit 44.8 % (37.0-47.0); Hemoglobin 14.1 g/dL (11.5-15.3); Mean Corpuscular HGB Conc 31.5 g/dL (30.0-36.0); Mean Corpuscular Hemoglobin 29.4 pg (28.0-34.0); Mean Corpuscular Volume 93.5 fl (81-99); Mean Platelet Volume 8.7 fL (7.4-10.4); Platelet Count 315 10^3/cmm (130-400); Red Blood Count 4.79 10^6/uL (4.1-5.3); Red Cell Distribution Width 14.1 % (12.1-15.1); White Blood Count 12.3 10^3/uL (4.0-10.0)
[2021-08-16 12:22] LABS: Absolute Eosinophils 0.1 10^3/cmm (0.0-0.7); Absolute Neutrophil 9.6 10^3/cmm (1.4-6.5); Absolute Segmented Neutrophil 9.6 10/cmm (1.6-7.1); Basophils Absolute 0.1 10^3/cmm (0.0-0.2); Eosinophils 1 %; Lymphocytes 13 %; Lymphocytes Absolute 1.8 10^3/cmm (1.2-3.4); Monocytes Absolute 0.6 10^3/cmm (0.1-0.6); Platelet Estimate Normal (Normal); Segmented Neutrophils 78 %; Total Cells Counted 100 (0-100)
[2021-08-16 13:07] LABS: Alanine Aminotransferase 8 U/L (0-33); Albumin Level 3.9 g/dL (3.5-5.2); Alkaline Phosphatase 81 IU/L (35-105); Anion Gap 15.2 (5-19); Aspartate Amino Transferase 12 U/L (0-32); Blood Urea Nitrogen 19 mg/dL (8-23); Calcium 9.4 mg/dL (8.5-10.5); Carbon Dioxide 23 mmol/L (22-29); Chloride 102 mmol/L (98-107); Globulin 2.6 g/dL (1.3-4.6); Glucose 93 mg/dL (65-115); Osmolality Calculated 284 mOsm/kg (285-295); Potassium 4.2 mmol/L (3.5-5.1); Sodium 136 mmol/L (136-145); Total Bilirubin 0.3 mg/dL (0.15-1.2); Total Protein 6.5 g/dL (6.6-8.7)
[2021-08-16] MEDS: sodium chloride 0.9% 250 ML 125 ML IV (14:20)
--- NOTE | 2021-08-16 16:08 | ONC FU_ITS ---
Lillian Fregoso Progress Note Patient: Anneliese Garcia Unit #: [id number]: 1945 Dicatated By: Lillian Fregoso N.P.Date of Visit:Aug 16, 2021 Onc MED Follow-up/Prog Note Chief Complaint: Lung cancer. History of Present Illness: This is a 75 year-old woman with metastatic lung cancer. 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 By clinical evaluation her disease was stage IIIA (T4, N1, M0), as her staging PET/CT showed a 1.2 cm subpleural nodule in the right upper lobe, SUV 9.8, consistent with a primary neoplasm, a 2 cm right upper lobe hilar node with SUV 10.9 consistent with local metastatic disease, and an additional pleural-based plaque in the lateral right middle lobe with SUV 8.2, consistent with metastatic disease. Her bronchoscopy showed no endobronchial lesion. The EBUS with FNA biopsy of the right hilar lymph node was consistent with small cell carcinoma. I had seen her initially on 07/29/2019. With 2 isolated lung lesions and right hilar node involvement, I was unsure if she was appropriate for concurrent chemoradiation. I opted to have her start chemotherapy pending consultation with the radiation oncologist. Her staging brain MRI on 08/06/2019 showed no evidence of metastatic disease. She began cycle 1 of cisplatin/etoposide chemotherapy on 08/11/2019. She tolerated it without acute toxicity. At day 15 she was severely neutropenic, ANC 400. She was not febrile, and she recovered following treatment with Neupogen. Following radiation oncology consultation, she decision was made to proceed with combined modality therapy. She continued with cycle 2 on 09/01/2019 with the dosages reduced by 10%. At that time she also began concurrent radiation. She continued to have significant fatigue with the treatment, but she otherwise tolerated it pretty well. She continued with cycle 3 of cisplatin/etoposide on 09/24/2019. She completed radiation on 10/10/2019 to a total dose of 6000 cGy, and she then continued with her 4th cycle of chemotherapy on 10/15/2019. Restaging chest CT on 11/10/2019 showed improvement in the subpleural right upper lobe nodule measuring 6 mm compared to 9 to 10 mm on the previous studies. The small right middle lobe lesion had resolved. The right hilar lymph node had decreased to 7 mm compared to 2.0 cm. There was no mediastinal adenopathy noted. With those findings I opted to follow her on observation/expectant management. Her chest CT on 02/10/2020 showed complete resolution of subpleural right upper lobe nodule but with progression of right multilobar sub-solid opacifications compared to the October 2019 study. The reported differential included pneumonitis, post therapeutic response to radiation, or new metastatic disease. There was no significant change in the right hilar lymph node measuring 9 mm. Additional subcentimeter mediastinal and hilar lymph nodes appeared slightly more prominent. There was severe underlying emphysema. There was no evidence of other metastatic disease. Her repeat brain MRI showed no evidence of metastatic disease. Given those findings, she continued on observation/expectant management. Repeat chest CT on 05/24/2020 reported semisolid opacities in the right middle lobe and right lower lobe which were noted to have improved compared to the prior study in January. These appear to be most likely treatment related. Right lower lobe airspace infiltrates also were noted to have improved. A subpleural nodularity in the right upper lobe appeared unchanged and there was no progressed mediastinal or hilar lymphadenopathy. A new soft tissue chest wall/pleural nodule was noted in the right lower lobe anteriorly adjacent to the sixth rib. It measured 8 mm and the appearance was suspicious for metastatic disease. However, as the changes appear to be mostly due to radiation, I opted to continue expectant management. She had had surveillance brain MRI on 07/28/2020. It showed a few small foci of restricted diffusion in the left frontal white matter and left parasagittal occipital lobe with associated enhancement. There was a small amount of associated edema with the left occipital lesion. Findings were felt to be due to either small subacute infarcts or metastatic disease. Short-term interval follow-up was recommended. On her followup brain MRI on 08/30/2020 the enhancing lesion in the left frontal lobe subcortical white matter was noted to be slightly larger measuring 7.4 mm. The left posterior occipital lobe lesion at 7 mm was not significantly changed in size, appearance consistent with infarct. A new area of restricted diffusion with slight enhancement was noted in the posterior left frontal lobe cortex. A right frontal lobe enhancement measured 3 mm. Overall, the findings were felt to be suspicious for metastatic sites. She then had repeat brain MRI on 10/22/2020. That study showed several enhancing lesions which were felt to be consistent with metastatic disease including a posterior right frontal lobe lesion with maximum diameter of 9 mm, increased from 3 mm on the prior study. An additional new enhancing nodule was noted in the posterior right frontal cortex measuring 5 mm. A left frontal subcortical white matter lesion measuring 10 x 14 mm had increased from 7.4 mm and an additional peripheral enhancing irregular lesion in left occipital lobe measured 11 mm, increased from 7 mm on the prior study. With those findings, she was referred to Dr. Bailey. She then underwent SRS to the right frontal lobe lesion on 11/10/2020, to the left occipital lesion on 11/12/2020, and to the left frontal lesion on 11/15/2020, all sites to a dosage of [address] on 12/07/2020 showed unchanged pleural-based nodule in the right lower lobe measuring 10 mm. A pleural-based nodule in the right middle lobe anteriorly measuring 14 mm also appeared unchanged. There were 2 tiny adjacent subpleural nodules measuring 5 mm and 3.7 mm which appeared more prominent. There is no mediastinal or hilar lymphadenopathy or other evidence of metastatic disease. There were advanced chronic emphysematous changes. Repeat brain MRI on 01/17/2021 showed significant decrease in the size and number of metastatic brain lesions. Only 2 lesions were identified, the largest in the left frontal lobe measuring 6 mm. There were no new lesions identified. Repeat chest CT on 03/10/2021 showed a slight increase in the right lower lobe pleural nodule measuring 15 mm compared to 10 mm on the prior study. Right upper lobe pleural nodules anteriorly appeared stable to slightly more prominent. There was no mediastinal or hilar adenopathy noted. Repeat head MRI on 05/03/2021 showed resolution of previously described subcentimeter metastatic lesions but with development of 2 new metastatic lesions, one in the left postcentral gyrus measuring 5 mm and the other in the left occipital lobe cortex measuring [address] scans of the chest, abdomen, and pelvis on 05/31/2021 showed progression of pleural thickening and nodularity within the right thorax compared to the study from February 2021. The largest area of progression was in the anterior lateral lower thorax involving the right middle lobe with the nodularity noted to extend over a length of 4.3 cm with a diameter of 1.0 cm. There was slight progression of the right lower lobe pleural thickening measuring 3.2 x 2.0 cm. Soft tissue tumor enhancement was noted to encase the adjacent rib and extend externally to the visceral pleura. Also noted was extensive advanced emphysematous disease throughout both lungs. A mildly enlarged lymph node measuring 9 mm was noted in the high right paratracheal area. A mildly prominent subcarinal lymph node measuring 10 mm. Unchanged. There was no evidence of metastatic disease in the abdomen/pelvis. With those findings, she was recommended to proceed with SRS to the left postcentral gyral and left occipital lobe metastatic lesions. With evidence of progression of the right middle lobe pleural-based lesion, she was also recommended to undergo CT directed biopsy. She completed the SRS on 06/16/2021 to a dose of 2400 cGy to each site. She tolerated the treatment well. On 06/28/[address] directed biopsy of the pleural-based lesion at the right ninth/10th rib level. The procedure was complicated by a small pneumothorax, which resolved with conservative management. Pathology reported a rare group of atypical cells within the biopsy specimen which were suspicious for primary lung adenocarcinoma. The specimen was insufficient for assessment of PD-L1 expression. The pathology was sent to [facility] for review, and it was felt that despite the cytologic atypia, a diagnosis of malignancy could not be rendered. 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 She completed radiation in January 2003. She had only brief adjuvant hormonal therapy, stopped at 6 months due to side effects. She has had no evidence of recurrence. Her other medical illnesses, in addition to the breast cancer, include COPD, hypertension, hyperlipidemia, degenerative disease of the spine, osteoporosis, and depression. She has a history of hepatitis. She also has known peripheral arterial disease for which she has undergone iliac artery stent placement. Her other prior surgeries include left breast lumpectomy with axillary lymph node sampling, hysterectomy/bilateral salpingo-oophorectomy, closed reduction for left distal radius fracture, cholecystectomy, and arthroscopic right knee surgery. She has a history of smoking 1/2 pack of cigarettes daily for 50 years. She has cut down to 2 or 3 cigarettes/day. INTERIM HISTORY: Restaging PET/CT on 07/23/2021 showed resolution of previously noted right upper lobe primary lung nodule and resolution of the right hilar mass. A right middle lobe pleural lesion was noted to have significantly progressed measuring 4.4 cm with SUV 13.6. There was noted to be development of a second posterior right chest wall lesion measuring 4.3 cm with SUV 10.4 representing a second pleural metastasis. A 1.5 cm right paratracheal node was minimally FDG positive. There was no evidence for any other metastatic disease. Patient presents today for a follow-up visit. She states she is tired and fatigues easily. Her has liver disease and at causes increased stress on her at this time. Her appetite has been fair. She denies fever, chills, night sweats. No sinus drainage or mouth sores. No shortness of breath or chest pain. She does have a occasional chronic cough. She denies GI or problems. No joint pain or muscle pain. No headaches or dizziness. No numbness or paresthesias. Review Of Symptoms: See above. Past Medical History: Degenerative disease of the spine with chronic back pain Hepatitis Hyperlipidemia Hypertension Osteoporosis Peripheral artery disease History of lumpectomy/radiation for left breast cancer in 2002 Past Surgical History: Arthroscopic right knee surgery Cholecystectomy Closed reduction and pinning of left distal radius fracture Colonoscopy Hysterectomy/bilateral salpingectomy-oophorectomy Iliac artery stent placement Covid vaccine #2 in 2020 Covid vaccine #1 in 2020 Bronchoscopy with EBUS and FNA biopsy of right hilar lymph node in 2019 Left breast lumpectomy and axillary lymph node sampling in 2002 Allergies: DULoxetine HCl and FLUoxetine HCl. Medications: amLODIPine Besylate 1 Tablet (of 5 mg) Tablet Oral daily Aspirin 1 Tablet (of 325 mg) Oral daily Protonix 1 Tablet (of 40 mg) Tablet, enteric coated Oral daily Sertraline HCl 1 Tablet (of 100 mg) Oral daily Simvastatin 1 Tablet (of 10 mg) Oral daily Stiolto Respimat Aerosol, solution Inhalation Toprol XL 2 Tablet (of 50 mg) Tablet SR 24 HR Oral daily Family History: Ms. Garcia's mother at age 78: alzheimers, and sepsis; Alzheimer's. Ms. Hassans father at age 80: nonhodgkins lymphoma; Non- Hodgkins lymphoma. Ms. Garcia has 1 brother who is : lung infection. She has 1 sister who is : alzheimers, and lung disease, and diabetes. Father of lymphoma at age 80. Mother at age 78 with sepsis complicating Alzheimer's dementia. A brother at age 76 with aspiration pneumonia. A sister at age 82 with dementia, diabetes, and lung disease. Social History: Ms. Garcia is and she is an unknown. She is a daily smoker who has smoked 0.5 packs/day for 47 years. She drinks occasionally. She has a history of smoking 1/2 pack of cigarettes daily for50 years. She has cut down to 5-6 cigarettes per day. Physical Examination: Performed on Aug 16, 2021 13:17: Height - 65.00 in, Weight - 129.2 lbs (HIGH), BSA - 1.64 sq.m, BMI - 21.50, Temperature - 98.2 F (LOW), Pulse - 73 /min, Respiration - 17 /min, BP - 115/67 mm(hg), O2 Sat - 91 % (LOW), Pain - 0, and Fatigue - 0. Performance Status: 1 - No physically strenuous activity, but ambulatory and able to carry out light or sedentary work (e.g. office work, light house work). (ECOG) Constitutional Alert, cooperative, oriented. Mood and affect appropriate. Appears close to chronological age. Well nourished. Well developed. Head Normocephalic; no scars. Respiratory Lungs are clear to auscultation without rhonchi or wheezing. Cardiovascular Regular rate and rhythm of heart without murmurs, gallops or rubs. Abdomen Non-tender, non-distended, no masses, ascites or hepatosplenomegaly. Good bowel sounds. No guarding or rebound tenderness. Extremities No edema Musculoskeletal No tenderness or swelling, normal range of motion without obvious weakness. Psychiatric Alert and oriented times three. Coherent speech. Verbalizes understanding of our discussions today. Laboratory: Test performed on Aug 16, 2021 11:55 Sodium 136 mmol/L TSH 2.70 uIU/mL Potassium 4.2 mmol/L Chloride 102 mmol/L CO2 23 mmol/L Anion Gap 15.2 BUN 19 mg/dL Creatinine 1.0 mg/dL Cr Clearance (Est) 46.36 mL/min Glucose 93 mg/dL Osmolality - Calculated 284 mOsm/kg Calcium 9.4 mg/dL Protein, Total 6.5 g/dL Albumin 3.9 g/dL Globulin 2.6 g/dL Bilirubin, Total 0.3 mg/dL ALT (SGPT) 8 U/L AST (SGOT) 12 U/L Alkaline Phosphatase 81 IU/L WBC 12.3 10 3/uL RBC 4.79 10 6/uL HGB 14.1 g/dL HCT 44.8 % MCV 93.5 fl MCH 29.4 pg MCHC 31.5 g/dL RDW 14.1 % Platelet Count 315 10 3/cmm MPV 8.7 fL Manual Neutrophils Abs 9.6 10 3/cmm Manual Segs Abs 9.6 10/cmm Manual Bands Abs 0.0 10 3/cmm Manual Lymphocytes Abs 1.8 10 3/cmm Manual Monocytes Abs 0.6 10 3/cmm Manual Eosinophils Abs 0.1 10 3/cmm Manual Basophils Abs 0.1 10 3/cmm Manual Segs % 78 % Manual Bands % 0.0 % Manual Lymphs % 13 % Manual Monos % 5.0 % Manual Eos % 1 % Manual Basos % 1.0 % Atypical Lymphs % 2.0 % Total Cells Counted 100 Platelet Estimate Normal Test performed on May 05, 2021 12:45 Neutrophils 6.05 10 3/uL Lymphocytes 2.0 10 3/uL Monocytes 0.7 10 3/uL Eosinophils 0.3 10 3/uL Basophils 0.0 10 3/uL Neutrophil % 65.7 % Lymphocyte % 22.1 % Monocyte % 7.7 % Eosinophil % 3.4 % Basophils % 0.4 % NRBC % 0 % Impression: 1. Metastatic lung cancer. 2. 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 There has been no evidence of recurrence. 3. COPD. 4. Hypertension. 5. Hyperlipidemia. 6. Peripheral arterial disease. 7. Degenerative arthritis/degenerative disease of the spine. 8. Osteoporosis. 9. Depression. 10. History of hepatitis. Plan: 1. Patient with metastatic lung cancer. Her diseae was TNM stage IIIA (T4, N1, M0) by clinical evaluation at initial diagnosis in June 2019. Her bronchoscopy/EBUS with FNA biopsy of a right hilar lymph node was consistent with small cell carcinoma. Her initital reatment included 4 cycles of cisplatin/etoposide chemotherapy administered from July through September 2019. She was given radiation concurrently, beginning with cycle 2. Radiation was completed on 10/10/2019 to a total dose of 6000 cGy. She tolerated the treatment well, and she appeared to have a good response by follow-up chest CT scan, though with development of significant treatment related opacities in the right middle and lower lobes. A repeat brain MRI on 10/22/2020 showed several enhancing lesions which were felt to be consistent with metastatic disease including 2 posterior right frontal lobe lesions, a left frontal subcortical white matter lesion, and a left occipital lobe lesion. As such her disease had progressed to stage IVB (M1c) and with those findings she was referred to Dr. Bailey for palliative radiation. She underwent SRS to all 4 sites, each to a dosage of 2400 cGy. She tolerated the radiation very well. Her restaging chest CT on 12/07/2020 showed no evidence of disease progression. There was significant improvement noted on her followup brain MRI on 01/17/2021. However, her repeat chest CT on 03/10/2021 showed a slight increase in the right lower lobe pleural nodule. Her repeat head MRI on 05/03/2021 showed resolution of the previously treated brain lesions, but with development of 2 new small lesions, one in the left postcentral gyrus measuring 5 mm and the other in the left occipital lobe cortex measuring [address] scans on 05/31/2021 showed progression of pleural-based nodules in the anterolateral lower thorax involving the right middle lobe and in the posterolateral right lower lobe. On my review of the CT, the described pleural-based lesions are distinct from the lesion that was treated with radiation. The degree of progression since the February study is very slight, but she had developed pain in the right rib cage which pretty well correlated with those findings. With minimal progression of the pleural-based disease, she was recommended to proceed with SRS for the brain lesions. She completed that treatment on 06/16/2021 to a dose of 2400 cGy to both sites. She tolerated it well. On 06/28/[address] directed biopsy of the enlarging pleural-based right lung nodule. The initial pathology report indicated a small cluster of atypical cells which appeared consistent with primary lung adenocarcinoma. The sample was insufficient for analysis of the PD-L1 expression. On review of the pathology at [facility], it was felt that a diagnosis of malignancy could not be rendered. Restaging PET/CT on 07/23/2021 showed significant progression of a right middle lobe pleural-based lesion and development of a second posterior right chest wall pleural metastasis. Overall, she has had significant disease progression, though limited to 2 pleural-based lesions in the right lung. By clinical evaluation, this is much more likely to be non-small cell carcinoma, but unfortunately that could not be verified with the biopsy. Dr. Arango again reviewed treatment options. In the setting of known metastatic brain involvement, the best choice would be a trial of pembrolizumab as monotherapy, as the benefit with the second line chemotherapy would be relatively low and it would potentially add significant side effects. The other option would be to just continue with symptomatic/supportive care. The major concern with the immunotherapy would be the risk of pneumonitis. At this point she is wanting to proceed with treatment. Patient presents today for education on pembrolizumab. Handouts were provided and side effects were discussed in detail. She will start cycle 1 today and receive pembrolizumab every 3 weeks. She will return to the clinic in 3 weeks with CBC and CMP. Signed By: Lillian Fregoso N.P. <<Signature on File>>
== END 2021-08-16 11:36 | disposition home or self-care (01) ==
PROVIDERS: PCP Family Medicine; Visit Provider Nurse Practitioner Family
DX: Z51.12 Encounter for antineoplastic immunotherapy (principal); C34.81 Malignant neoplasm of overlapping sites of right bronchus and lung; C77.8 Secondary and unspecified malignant neoplasm of lymph nodes of multiple regions; C79.31 Secondary malignant neoplasm of brain; Z85.3 Personal history of malignant neoplasm of breast; J44.9 Chronic obstructive pulmonary disease, unspecified; I10 Essential (primary) hypertension; E78.5 Hyperlipidemia, unspecified; I73.9 Peripheral vascular disease, unspecified; M19.90 Unspecified osteoarthritis, unspecified site; M47.9 Spondylosis, unspecified; M81.0 Age-related osteoporosis without current pathological fracture; F32.A Depression, unspecified; Z86.19 Personal history of other infectious and parasitic diseases; Z92.3 Personal history of irradiation
CPT/HCPCS: 80053; 84443; 85007; 85027; 96413; 99215; J7050; J9271

== ENCOUNTER 2021-09-27 10:22 | Outpatient (CLI) | payer MEDICARE, SELFPAY ==
--- NOTE | 2021-09-27 10:15 | MR_ITS ---
WS: [id number] MRI HEAD WITH CONTRAST TECHNIQUE: Sagittal T1, T2 axial, T2 axial FLAIR, axial susceptibility weighted imaging, axial diffus ion weighted images, and coronal T2 images were obtained. Pre and post-T1 axial and post T1 coronal i mages. ADC and FSPGR images. CLINICAL INFORMATION: dizziness; hallucinations COMPARISON: MRI 05/03/2021 and 01/17/2021 FINDINGS: Numerous peripheral enhancing lesions compatible with metastatic disease significantly progressed com pared to the prior examinations. Numerous supra and infratentorial enhancing metastatic lesions. Larg est lesion in the LEFT frontal lobe measuring 1.5 cm with moderate surrounding edema in the LEFT fron dari white matter. Minimal mass effect on the LEFT frontal horn. Small amount of associated hemosideri n. Moderate edema associated with additional prominent RIGHT deep white matter and LEFT frontal parie dari cortical metastatic lesions. Mild edema associated with the majority of the remainder of the lesi ons. No midline shift. No hydrocephalus. Normal vascular flow voids at the skull base. No extra-axial fluid collections. Mild mucosal thickeni ng in the ethmoid air cells. Mastoid air cells are well aerated. Small amount of hemosiderin associat ed with the LEFT parasagittal occipital lesion with mild edema. Normal visualized dural venous sinuses. Approximately 20 supratentorial lesions and approximately 10 lesions in the posterior fossa. 4th ventricle remains patent. MR/MR head wo/w con [id number] IMPRESSION: 1. Numerous new enhancing supra and infratentorial metastatic lesions. Largest lesion LEFT frontal lobe measures 1.5 cm with moderate surrounding edema. 2. Approximately 20 supratentorial lesions and approximately 10 lesions in the posterior fossa. 4th ventricle remains patent 3. Moderate edema associated with a LEFT frontoparietal lesion and RIGHT deep white matter lesions. 4. No hydrocephalus or midline shift. 5. Small amount of hemosiderin associated with the LEFT frontal and LEFT occip ital lesions. 6. Background of underlying moderate small vessel changes with moderate parenc hymal volume loss. Small vessel changes in the lei. Notified Dr. Nba Jade 09/27/2021 12:59 PM.
[2021-09-27] MEDS: gadobenate dimeglumine 20 mL vial IV (12:07)
== END 2021-09-27 10:23 | disposition home or self-care (01) ==
LOC: RAD 10:25
PROVIDERS: PCP Family Medicine; Visit Provider Nurse Practitioner Family
DX: C34.90 Malignant neoplasm of unspecified part of unspecified bronchus or lung (principal); R42 Dizziness and giddiness; R44.3 Hallucinations, unspecified
CPT/HCPCS: 70553

== ENCOUNTER 2021-09-29 09:46 | Oncology outpatient (recurring) (ONCR) | payer MEDICARE, SELFPAY ==
[2021-09-26 10:00] VITALS: BMI 21.0
[2021-09-26 10:13] VITALS: BMI 21.0
[2021-09-26 10:20] LABS: Basophils % 0.3 %; Eosinophils % 0.2 %; Hemoglobin 13.4 g/dL (11.5-15.3); Lymphocytes % 8.4 %; Mean Corpuscular HGB Conc 31.9 g/dL (30.0-36.0); Mean Platelet Volume 8.8 fL (7.4-10.4); Monocytes # 0.6 10^3/uL (0.2-0.9); Monocytes % 5.4 %; Neutrophils # 9.57 10^3/uL (1.8-7.7); Neutrophils % 85.1 %; Nucleated Red Blood Cells % 0 %; Platelet Count 225 10^3/cmm (130-400); Red Blood Count 4.47 10^6/uL (4.1-5.3); Red Cell Distribution Width 13.8 % (12.1-15.1); White Blood Count 11.3 10^3/uL (4.0-10.0)
[2021-09-26 10:40] LABS: Alanine Aminotransferase 10 U/L (0-33); Albumin Level 3.6 g/dL (3.5-5.2); Alkaline Phosphatase 66 IU/L (35-105); Anion Gap 15.4 (5-19); Aspartate Amino Transferase 13 U/L (0-32); Blood Urea Nitrogen 14 mg/dL (8-23); Calcium 9.3 mg/dL (8.5-10.5); Carbon Dioxide 24 mmol/L (22-29); Chloride 107 mmol/L (98-107); Globulin 2.6 g/dL (1.3-4.6); Glucose 133 mg/dL (65-115); Osmolality Calculated 296 mOsm/kg (285-295); Potassium 4.4 mmol/L (3.5-5.1); Sodium 142 mmol/L (136-145); Total Bilirubin 0.4 mg/dL (0.15-1.2); Total Protein 6.2 g/dL (6.6-8.7)
[2021-09-26] MEDS: sodium chloride 0.9% 1,000 ML 999 ML IV (12:58)
[2021-09-26] MEDS: pembrolizumab 200 MG in sodium chloride 0.9% 250 ML 516 MG IV (13:27)
[2021-09-26 14:22] VITALS: BP 169/85; PULSE 73; RESP 18; TEMP 36.3; O2SAT 99
== END 2021-10-18 23:59 | disposition home or self-care (01) ==
PROVIDERS: Internal Medicine Medical Oncology; PCP Family Medicine; Visit Provider Nurse Practitioner Family
DX: C34.81 Malignant neoplasm of overlapping sites of right bronchus and lung (principal); C79.31 Secondary malignant neoplasm of brain; C77.8 Secondary and unspecified malignant neoplasm of lymph nodes of multiple regions; F41.9 Anxiety disorder, unspecified; F17.210 Nicotine dependence, cigarettes, uncomplicated; Z79.899 Other long term (current) drug therapy; Z79.52 Long term (current) use of systemic steroids; Z79.891 Long term (current) use of opiate analgesic
CPT/HCPCS: 80053; 85025; 96413; 99215; 99999; J7030; J7050; J9271

== ENCOUNTER 2021-10-20 08:34 | Oncology outpatient (recurring) (ONCR) | payer MEDICARE, SELFPAY ==
[2021-10-20 09:00] VITALS: BMI 19.8
[2021-10-20] MEDS: alteplase 1 mg/mL SDV 2 mL 2 MG INTRACATH (09:09)
[2021-10-20 09:26] LABS: Basophils % 0.2 %; Eosinophils % 0.1 %; Hemoglobin 15.3 g/dL (11.5-15.3); Lymphocytes # 0.8 10^3/uL (0.8-4.8); Lymphocytes % 4.6 %; Mean Corpuscular HGB Conc 33.3 g/dL (30.0-36.0); Mean Corpuscular Hemoglobin 30.1 pg (28.0-34.0); Mean Corpuscular Volume 90.6 fl (81-99); Monocytes # 0.8 10^3/uL (0.2-0.9); Monocytes % 4.8 %; Neutrophils # 14.78 10^3/uL (1.8-7.7); Nucleated Red Blood Cells % 0 %; Platelet Count 271 10^3/cmm (130-400); Red Blood Count 5.08 10^6/uL (4.1-5.3); Red Cell Distribution Width 13.8 % (12.1-15.1); White Blood Count 16.8 10^3/uL (4.0-10.0)
[2021-10-20 09:37] LABS: Alanine Aminotransferase 35 U/L (0-33); Albumin Level 3.1 g/dL (3.5-5.2); Alkaline Phosphatase 63 IU/L (35-105); Anion Gap 17.4 (5-19); Aspartate Amino Transferase 15 U/L (0-32); Blood Urea Nitrogen 29 mg/dL (8-23); Calcium 8.8 mg/dL (8.5-10.5); Carbon Dioxide 22 mmol/L (22-29); Chloride 100 mmol/L (98-107); Globulin 3.1 g/dL (1.3-4.6); Glucose 178 mg/dL (65-115); Osmolality Calculated 290 mOsm/kg (285-295); Potassium 4.4 mmol/L (3.5-5.1); Sodium 135 mmol/L (136-145); Thyroid Stimulating Hormone 1.37 uIU/mL (0.27-4.20); Total Bilirubin 0.4 mg/dL (0.15-1.2); Total Protein 6.2 g/dL (6.6-8.7)
[2021-10-20] MEDS: sodium chloride 0.9% 500 ML 999 ML IV (10:46)
[2021-10-20 11:25] VITALS: BP 172/89; PULSE 78; RESP 18; TEMP 36.5; O2SAT 95
--- NOTE | 2021-10-20 11:30 | CTR_ITS ---
PROCEDURE INFORMATION: Exam: CT Abdomen And Pelvis With Contrast Exam date and time: 10/20/2021 12:07 PM Age: 75 years old Clinical indication: Abdominal pain; Prior surgery; Surgery type: Hyst, gb, port; Patient HX: HX of lung cancer TECHNIQUE: Imaging protocol: Computed tomography of the abdomen and pelvis with contrast. Radiation optimization: All CT scans at this facility use at least one of these dose optimization techniques: automated exposure control; mA and/or kV adjustment per patient size (includes targeted exams where dose is matched to clinical indication); or iterative reconstruction. Contrast material: OMNI 350; Contrast volume: 50 ml; Contrast route: INTRAVENOUS (IV); COMPARISON: CT chest abd pel w con* 05/31/2021 3:15 PM RADIATION DOSE METRICS: Total DLP (mGy-cm): 849.43 FINDINGS: Lungs: Emphysema and atelectasis in both lung bases. Liver: The liver is normal. Gallbladder and bile ducts: The gallbladder is absent. There is ectasia of the common bile duct and central intrahepatic ducts. Pancreas: There are multiple masses in the pancreatic head, uncinate process, and tail. The largest is in the tail measuring 3.3 x 2.6 cm. This finding is new since 05/31/2021. Spleen: The spleen is unremarkable. Adrenal glands: The adrenal glands are unremarkable. Kidneys and ureters: There is ill-defined nodular soft tissue density along the gastric fundus, left upper quadrant mesentery, and left superior perirenal space. There is a simple cyst in the right kidney. There is no hydronephrosis or stones. Stomach and bowel: The stomach is decompressed. There is ill-defined nodular thickening of the gastric fundal wall. The small bowel is nondilated. The ascending colon is stool distended. There is mild gaseous distention of the transverse colon with abrupt narrowing at the splenic flexure and completely decompressed descending and sigmoid colon. There are shouldered margins at the site of narrowing. There is no sign of inflammation. There is no visible colonic mass. Appendix: The appendix is not visible. Intraperitoneal space: There is no free air or significant intraperitoneal free fluid. Vasculature: There is moderate aortic atherosclerotic disease. The portal, splenic and superior mesenteric veins are patent. Lymph nodes: There is no lymphadenopathy in the retroperitoneum, mesentery, pelvis or inguinal regions. Urinary bladder: The urinary bladder is unremarkable. Reproductive: The uterus is absent. There is no adnexal mass or large cyst. Bones/joints: There is mild degenerative disease in the lumbar spine. The bony pelvis is intact. Soft tissues: There is markedly increased size of a soft tissue mass involving the right lower chest wall surrounding the anterior 5th through 7th ribs. There is bone destruction and pathologic fracture of the right anterolateral 6th rib. The mass measures 7.8 x 4.4 cm which compares to 4.1 x 1.5 cm on 05/31/2021. There is a morphologically similar mass in the right posterior chest wall measuring 5.6 x 2.2 cm, increased in size from 3.7 x 1.8 cm on the prior CT of 05/31/2021. The abdominal wall is intact. CT/CT abdomen pelvis w con* [id number] IMPRESSION: 1. Distended colon to the level of the splenic flexure with abrupt narrowing of the lumen and distal decompression. No discrete colonic mass is visible although new peritoneal metastases are seen in the region. Malignant stricture with partial colonic obstruction should be considered. 2. Markedly increased size of a right lower chest wall metastases since 05/31/2021. 3. 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 4. New nodular soft tissue density in the left upper quadrant of the abdomen involving the stomach, pancreas, peritoneum and left upper perirenal retroperitoneal space consistent with metastases. COMMENTS: Consistent with the [employer]'s Incidental Findings Committee white paper (J Am Connor [employer]iol 2018): Any incidental renal lesion less than 1 cm or classified as too small to characterize, or any incidental cystic renal lesion characterized as simple-appearing, is likely benign. No follow-up imaging is recommended for these lesions per consensus recommendations based on imaging criteria.
[2021-10-20] MEDS: iohexol 350 mg/mL 100 mL Btl IV (12:22)
== END 2021-11-17 23:59 | disposition home or self-care (01) ==
PROVIDERS: PCP Family Medicine; Visit Provider Nurse Practitioner Family
DX: C34.01 Malignant neoplasm of right main bronchus (principal); C79.31 Secondary malignant neoplasm of brain; C79.89 Secondary malignant neoplasm of other specified sites; C78.89 Secondary malignant neoplasm of other digestive organs; C78.5 Secondary malignant neoplasm of large intestine and rectum; F17.210 Nicotine dependence, cigarettes, uncomplicated; M81.0 Age-related osteoporosis without current pathological fracture; I10 Essential (primary) hypertension; R10.9 Unspecified abdominal pain; Z79.899 Other long term (current) drug therapy
CPT/HCPCS: 36415; 36593; 74177; 80053; 84443; 85025; 96360; 99215; J2997; J7040; Q9967